=== PATIENT | female | born 1965 | race Caucasian/White ===

== ENCOUNTER 2016-11-10 13:41 | Emergency (ER) | payer SELFPAY ==
--- NOTE | 2016-11-10 14:05 | ER Document Report ---
ED Medical Screen (RME) - General Stated Complaint: VAGINAL ISSUE Notes: 51 yo female c/o something wrong with her vagina x 1 month. something hanging out of vagina. not sexually active. no vaginal discharge or bleeding. menopausal since age 44 TRAVEL OUTSIDE OF THE [place] IN LAST 30 DAYS: No - Related Data Allergies/Adverse Reactions: codeine [Codeine] Allergy (Verified 12/14/14 17:13) Past Medical History - Past Medical History Cardiac Medical History: Reports: Hx Hypertension - pt reports does not take medication regularly Denies: Hx Atrial Fibrillation, Hx Congestive Heart Failure, Hx Coronary Artery Disease, Hx DVT, Hx Pulmonary Embolism Pulmonary Medical History: Reports: Hx Asthma, Hx COPD Neurological Medical History: Denies: Hx Cerebrovascular Accident, Hx Migraine GI Medical History: Denies: Hx Cirrhosis Musculoskeltal Medical History: Reports Hx Arthritis Psychiatric Medical History: Reports: Hx Anxiety, Hx Depression Past Surgical History: Reports: Hx Appendectomy, Hx Orthopedic Surgery - left shoulder - Immunizations Hx Diphtheria, Pertussis, Tetanus Vaccination: No
--- NOTE | 2016-11-10 16:00 | ER Document Report ---
HPI - HPI Patient complains to provider of: vaginal protrusion Onset: Other - One month Onset/Duration: Persistent Quality of pain: Achy Pain Level: 1 Context: Patient complains of feeling something bulging from her vagina periodically after she goes to the bathroom. Patient states she's noticed this off and on for the past month. Patient denies any vaginal bleeding, discharge, or urinary symptoms. Patient states she is not currently sexually active. Patient did go through menopause at age 44. Associated Symptoms: Other - Protrusion from the vagina Exacerbated by: Other - Worse after going to the bathroom Relieved by: Denies Similar symptoms previously: No Recently seen / treated by doctor: No - ROS ROS below otherwise negative: Yes Systems Reviewed and Negative: Yes All other systems reviewed and negative - CONSTITUTIONAL Constitutional: DENIES: Fever, Chills - CARDIOVASCULAR Cardiovascular: DENIES: Chest pain - RESPIRATORY Respiratory: DENIES: Trouble Breathing, Coughing - GASTROINTESTINAL Gastrointestinal: DENIES: Abdominal Pain, Nausea, Patient vomiting - URINARY Urinary: DENIES: Dysuria, Urgency - REPRODUCTIVE Reproductive: DENIES: :, Postmenopausal, Abnormal bleeding / discharge - MUSCULOSKELETAL Musculoskeletal: DENIES: Back Pain - DERM Skin Color: Normal Skin Problems: None - NURSING COMMENTS Comment: see ed assessment. vitals documented elsewhere. Past Medical History - General Information source: Patient Last Menstrual Period: 7 years ago - Social History Smoking Status: Current Every Day Smoker Cigarette use (# per day): Yes - 0.5 ppd Chew tobacco use (# tins/day): No Frequency of alcohol use: None Drug Abuse: None Occupation: none Family History: Reviewed & Not Pertinent Patient has suicidal ideation: No Patient has homicidal ideation: No - Past Medical History Cardiac Medical History: Reports: Hx Hypertension - pt reports does not take medication regularly Denies: Hx Atrial Fibrillation, Hx Congestive Heart Failure, Hx Coronary Artery Disease, Hx DVT, Hx Pulmonary Embolism Pulmonary Medical History: Reports: Hx Asthma, Hx COPD Neurological Medical History: Denies: Hx Cerebrovascular Accident, Hx Migraine GI Medical History: Denies: Hx Cirrhosis Musculoskeltal Medical History: Reports Hx Arthritis Psychiatric Medical History: Reports: Hx Anxiety, Hx Depression Past Surgical History: Reports: Hx Appendectomy, Hx Orthopedic Surgery - left shoulder - Immunizations Hx Diphtheria, Pertussis, Tetanus Vaccination: No Vertical Provider Document - CONSTITUTIONAL Agree With Documented VS: Yes Exam Limitations: No Limitations General Appearance: WD/WN, No Apparent Distress - INFECTION CONTROL TRAVEL OUTSIDE OF THE [place] IN LAST 30 DAYS: No - HEENT HEENT: Atraumatic, Normocephalic - NECK Neck: Normal Inspection, Supple - RESPIRATORY Respiratory: Breath Sounds Normal, No Respiratory Distress O2 Sat by Pulse Oximetry: 98 - CARDIOVASCULAR Cardiovascular: Regular Rate, Regular Rhythm, No Murmur - GI/ABDOMEN Gastrointestinal: Abdomen Soft, Abdomen Non-Tender - REPRODUCTIVE Female Genitalia: negative: Adnexal Pain-Right, Adnexal Pain-Left Notes: 1st degree uterine prolapse - BACK Back: Normal Inspection - MUSCULOSKELETAL/EXTREMETIES Musculoskeletal/Extremeties: GURINDER MONREAL - NEURO Level of Consciousness: Awake, Alert, Appropriate Motor/Sensory: No Motor Deficit Course - Re-evaluation Re-evalutation: 11/10/16 15:58 Patient encouraged to follow-up with her primary care provider for recheck. Patient also advised that she'll need to see a gynecologic surgeon for further management of her uterine prolapse. - Vital Signs Vital signs: Temp Pulse Resp BP Pulse Ox 98.1 F 73 17 122/88 H 98 11/10/16 15:27 11/10/16 15:27 11/10/16 15:27 11/10/16 15:27 11/10/16 15:27 Discharge - Discharge Clinical Impression: Uterine prolapse Condition: Stable Disposition: HOME, SELF-CARE Additional Instructions: Return immediately for any new or worsening symptoms Followup with your primary care provider, call tomorrow to make a followup appointment You will need to see a gynecologic surgeon for definitive management of your uterine prolapse. Call to make a follow-up appointment for further evaluation. Referrals: BERNICE PERALES DO [Primary Care Provider] - Follow up in 3-5 days [facility] [NO LOCAL MD] - Follow up as needed [facility] [Provider Group] - Follow up in 3-5 days
[2016-11-10 16:32] VITALS: BP 144/85
== END 2016-11-10 16:32 | disposition home or self-care (01) ==
LOC: ER 13:41
DX: N81.10 Cystocele, unspecified (principal); F17.210 Nicotine dependence, cigarettes, uncomplicated; J45.909 Unspecified asthma, uncomplicated; J44.9 Chronic obstructive pulmonary disease, unspecified; Z78.0 Asymptomatic menopausal state
CPT/HCPCS: 99283

== ENCOUNTER 2017-07-26 11:18 | Emergency (ER) | payer SELFPAY ==
--- NOTE | 2017-07-26 13:35 | ER Document Report ---
ED GI/ - General Chief Complaint: Abdominal Pain Stated Complaint: BACK PAIN Time Seen by Provider: 07/26/17 13:03 Mode of Arrival: Ambulatory Information source: Patient Notes: Patient is a 51-year-old female who presents to the ER today for multiple complaints including bilateral lower back pain 3-4 days. Patient denies any dysuria or hematuria, history of kidney stones. Patient denies any lower abdominal pain. Patient also complains of right upper abdominal pain, nausea, vomiting and diarrhea 1 month. She denies any fevers or chills with this. Patient also complains of approximately 1 month of respiratory symptoms such as cough, wheezing, patient does have COPD and has been using her inhaler which has sometimes been helping and sometimes not. TRAVEL OUTSIDE OF THE [place] IN LAST 30 DAYS: No - Related Data Allergies/Adverse Reactions: codeine [Codeine] Allergy (Verified 11/10/16 14:06) Past Medical History - General Information source: Patient - Social History Smoking Status: Current Every Day Smoker Frequency of alcohol use: None Drug Abuse: None Family History: Reviewed & Not Pertinent Patient has suicidal ideation: No Patient has homicidal ideation: No - Past Medical History Cardiac Medical History: Reports: Hx Hypertension - pt reports does not take medication regularly Denies: Hx Atrial Fibrillation, Hx Congestive Heart Failure, Hx Coronary Artery Disease, Hx DVT, Hx Pulmonary Embolism Pulmonary Medical History: Reports: Hx Asthma, Hx COPD Neurological Medical History: Denies: Hx Cerebrovascular Accident, Hx Migraine Renal/ Medical History: Denies: Hx Peritoneal Dialysis GI Medical History: Denies: Hx Cirrhosis Musculoskeltal Medical History: Reports Hx Arthritis Psychiatric Medical History: Reports: Hx Anxiety, Hx Depression Past Surgical History: Reports: Hx Appendectomy, Hx Orthopedic Surgery - left shoulder - Immunizations Hx Diphtheria, Pertussis, Tetanus Vaccination: No Review of Systems - Review of Systems Constitutional: No symptoms reported EENT: No symptoms reported Cardiovascular: No symptoms reported Respiratory: See HPI Gastrointestinal: See HPI Genitourinary: No symptoms reported Female Genitourinary: No symptoms reported Musculoskeletal: See HPI Skin: No symptoms reported Hematologic/Lymphatic: No symptoms reported Neurological/Psychological: No symptoms reported Physical Exam - Vital signs Vitals: Temp Pulse BP Pulse Ox 97.9 F 74 148/91 H 100 07/26/17 11:22 07/26/17 11:22 07/26/17 11:22 07/26/17 11:22 - Notes Notes: PHYSICAL EXAMINATION: GENERAL: Chronically ill-appearing, but in no acute distress. HEAD: Atraumatic, normocephalic. EYES: Pupils equal round and reactive to light, extraocular movements intact, sclera anicteric, conjunctiva are normal. NECK: Normal range of motion, supple without lymphadenopathy LUNGS: Mild expiratory wheezes in bilateral lower lung keith, no rales or rhonchi. HEART: Regular rate and rhythm without murmurs ABDOMEN: Soft, epigastric, right upper quadrant tenderness. No guarding, no rebound BACK: no vertebral tenderness, normal ROM GI/: no CVA tenderness EXTREMITIES: Normal range of motion, no pitting edema. No cyanosis. NEUROLOGICAL: Cranial nerves grossly intact. Normal sensory/motor exams. PSYCH: Normal mood, normal affect. SKIN: Warm, Dry, normal turgor, no rashes or lesions noted Course - Re-evaluation Re-evalutation: 07/26/17 17:47 Patient usually has some elevated liver enzymes, today her liver enzymes are elevated and her bilirubin is mildly elevated. Right upper quadrant revealed a normal gallbladder but a possible right lower pleural effusion. Patient will be treated for COPD exacerbation with antibiotics and steroid medication. I do not have an explanation for her abdominal pain and vomiting and diarrhea today. Her urinalysis showed 11 white blood cells and some leukocytes, I will choose an antibiotic but also treat UTI. Patient has a white patch on her tongue that is able to be scraped off, I will also provide her with Magic mouthwash with nystatin and it from this emergency department. - Vital Signs Vital signs: Temp Pulse Resp BP Pulse Ox 98.4 F 70 16 133/76 H 99 07/26/17 16:07 07/26/17 16:07 07/26/17 16:07 07/26/17 16:07 07/26/17 16:07 - Laboratory Result Diagrams: 07/26/17 13:10 07/26/17 13:10 Laboratory results interpreted by me: 07/26/17 07/26/17 07/26/17 13:10 13:10 13:10 WBC 11.4 H Hgb 16.4 H MCV 98 H MCH 35.1 H Absolute Neutrophils 8.6 H Calcium 10.7 H Total Bilirubin 1.7 H Direct Bilirubin 0.5 H AST 74 H ALT 60 H Total Protein 9.0 H Albumin 5.2 H Urine Protein 30 H Urine Ketones 20 H Ur Leukocyte Esterase TRACE H Discharge - Discharge Clinical Impression: COPD exacerbation, Thrush, oral Abdominal pain Qualifiers: Abdominal location: right upper quadrant Qualified Code(s): R10.11 - Right upper quadrant pain Condition: Stable Disposition: HOME, SELF-CARE Additional Instructions: Return immediately for any new or worsening symptoms. Follow up with primary care provider, call tomorrow to make followup appointment. Prescriptions: Amox Tr/Potassium Clavulanate [Augmentin 875-125 Tablet] 1 tab PO BID 10 Days tablet Prednisone 40 mg PO DAILY #14 tablet Referrals: BERNICE PERALES DO [Primary Care Provider] - Follow up as needed
[2017-07-26 13:42] LABS: ABSOLUTE BASOPHILS # (AUTO) 0.1 10^3/uL (0.0-0.2); ABSOLUTE LYMPHOCYTES (AUTO) 2.2 10^3/uL (0.5-4.7); ABSOLUTE MONOCYTES (AUTO) 0.5 10^3/uL (0.1-1.4); ABSOLUTE NEUT (AUTO) 8.6 10^3/uL (1.7-8.2); BASOPHILS % (AUTO) 0.6 % (0-2); EOSINOPHILS % (AUTO) 0.1 % (0-6); HEMATOCRIT 45.8 % (36.0-47.0); HEMOGLOBIN 16.4 g/dL (12.0-15.5); HGB HCT DIFFERENCE 3.4; MEAN CORPUSCULAR HEMOGLOBIN 35.1 pg (27.0-33.4); MEAN CORPUSCULAR HGB CONC 35.8 g/dL (32.0-36.0); MEAN CORPUSCULAR VOLUME 98 fl (80-97); MONOCYTES % (AUTO) 4.8 % (3-13); RED BLOOD COUNT 4.66 10^6/uL (3.72-5.28); RED CELL DISTRIBUTION WIDTH 12.7 % (11.5-14.0); SEGMENTED NEUTROPHILS % (AUTO) 75.5 % (42-78); WHITE BLOOD COUNT 11.4 10^3/uL (4.0-10.5)
[2017-07-26 13:48] LABS: APPEARANCE,URINE SLIGHTLY-CLOUDY; BILIRUBIN,URINE NEGATIVE (NEGATIVE); GLUCOSE, URINE NEGATIVE (NEGATIVE); KETONES,URINE 20 mg/dL (NEGATIVE); LEUKOCYTE ESTERASE,URINE TRACE (NEGATIVE); NITRITE,URINE NEGATIVE (NEGATIVE); PROTEIN,URINE 30 mg/dL (NEGATIVE); URINE SPECIFIC GRAVITY 1.016; UROBILINOGEN,URINE NEGATIVE mg/dL (<2.0)
[2017-07-26 14:11] LABS: ALANINE AMINOTRANSFERASE 60 U/L (9-52); ALBUMIN 5.2 g/dL (3.5-5.0); ALKALINE PHOSPHATASE 114 U/L (38-126); ANION GAP 15 (5-19); ASPARTATE AMINO TRANSFERASE 74 U/L (14-36); BILIRUBIN,DIRECT 0.5 mg/dL (0.0-0.4); BILIRUBIN,TOTAL 1.7 mg/dL (0.2-1.3); BLOOD UREA NITROGEN 10 mg/dL (7-20); CALCIUM 10.7 mg/dL (8.4-10.2); CARBON DIOXIDE 24 mmol/L (22-30); CHLORIDE 102 mmol/L (98-107); CREATININE RESULT 0.85 mg/dL (0.52-1.25); GLUCOSE 104 mg/dL (75-110); LIPASE 128.6 U/L (23-300); POTASSIUM 4.4 mmol/L (3.6-5.0)
--- NOTE | 2017-07-26 14:21 | RADIOLOGY REPORT (SQ) ---
EXAM DESCRIPTION: CHEST PA/LAT COMPLETED DATE/TIME: 07/26/2017 2:03 pm REASON FOR STUDY: copd, cough COMPARISON: 12/14/2014. EXAM PARAMETERS: NUMBER OF VIEWS: two views TECHNIQUE: Digital Frontal and Lateral radiographic views of the chest acquired. RADIATION DOSE: NA LIMITATIONS: none FINDINGS: LUNGS AND PLEURA: No opacities, masses or pneumothorax. No pleural effusion. MEDIASTINUM AND HILAR STRUCTURES: No masses or contour abnormalities. HEART AND VASCULAR STRUCTURES: Heart normal size. No evidence for failure. BONES: No acute findings. HARDWARE: None in the chest. OTHER: No other significant finding. IMPRESSION: NO SIGNIFICANT RADIOGRAPHIC FINDING IN THE CHEST. TECHNICAL DOCUMENTATION: JOB ID: [id number] [employer]- All Rights Reserved
--- NOTE | 2017-07-26 17:29 | RADIOLOGY REPORT (SQ) ---
EXAM DESCRIPTION: U/S ABDOMEN LIMITED W/O DOP COMPLETED DATE/TIME: 07/26/2017 4:56 pm REASON FOR STUDY: elevated lfts and bilirubin, pain, n/v COMPARISON: None. TECHNIQUE: Dynamic and static grayscale images acquired of the abdomen and recorded on PACS. Rejio therese selected color Doppler and spectral images recorded. LIMITATIONS: None. FINDINGS: PANCREAS: Obscured by gas. LIVER: 17.8 cm. Diffusely echogenic. LIVER VASCULATURE: Normal directional flow of the main portal vein and hepatic veins. GALLBLADDER: No stones. Normal wall thickness. No pericholecystic fluid. ULTRASOUND-DETECTED HARRINGTON'S SIGN: Negative. INTRAHEPATIC DUCTS AND COMMON DUCT: CBD and intrahepatic ducts normal caliber. No filling defects. INFERIOR VENA CAVA: Normal flow. AORTA: No aneurysm. RIGHT KIDNEY: Normal size, 9.1 cm. Normal echogenicity. No solid or suspicious masses. No hydronephr osis. No calcifications. PERITONEAL AND RIGHT PLEURAL SPACE: There is a suggestion of a small right pleural effusion. OTHER: No other significant findings. IMPRESSION: 1. Fatty infiltration of the liver. 2. There may be a small right pleural effusion. TECHNICAL DOCUMENTATION: JOB ID: [id number] [employer]- All Rights Reserved
[2017-07-26] MEDS ORDERED: NYSTATIN/DEXAMETH/DIPHEN SUSP 120 ML PO ONE (17:51)
[2017-07-26] MEDS ORDERED: OXYCODONE-ACETAMINOPHEN 5-325 MG TABLET PO ONE (17:57)
[2017-07-26 18:35] VITALS: BP 158/105
== END 2017-07-26 18:36 | disposition home or self-care (01) ==
LOC: ER 11:18
DX: J44.1 Chronic obstructive pulmonary disease with (acute) exacerbation (principal); B37.0 Candidal stomatitis; M54.5 Low back pain; R10.11 Right upper quadrant pain; R19.7 Diarrhea, unspecified; R11.10 Vomiting, unspecified; F17.200 Nicotine dependence, unspecified, uncomplicated; I10 Essential (primary) hypertension; Z88.6 Allergy status to analgesic agent
CPT/HCPCS: 99284; 36415; 83690; 85025; 80053; 81001; 71020; 76705; J3490

== ENCOUNTER 2018-02-27 18:21 | Inpatient (IN) | payer SELFPAY ==
[2018-02-27] MEDS ORDERED: HALOPERIDOL LACTATE INJ 5 MG/1 ML VIAL IV ONE (18:56)
[2018-02-27] MEDS ORDERED: NORMAL SALINE 1000 ML 1,000 ML IV PRN (18:59)
[2018-02-27] MEDS ORDERED: KETOROLAC TROMETHAMINE INJ/PF 30 MG/1 ML SDV IV ONE (19:00)
--- NOTE | 2018-02-27 19:26 | ER Document Report ---
HPI - HPI Pain Level: 5 - REPRODUCTIVE Reproductive: DENIES: : Past Medical History - Social History Smoking Status: Current Every Day Smoker Family History: Reviewed & Not Pertinent - Past Medical History Cardiac Medical History: Reports: Hx Hypertension - pt reports does not take medication regularly Denies: Hx Atrial Fibrillation, Hx Congestive Heart Failure, Hx Coronary Artery Disease, Hx DVT, Hx Pulmonary Embolism Pulmonary Medical History: Reports: Hx Asthma, Hx COPD Neurological Medical History: Denies: Hx Cerebrovascular Accident, Hx Migraine Renal/ Medical History: Denies: Hx Peritoneal Dialysis GI Medical History: Denies: Hx Cirrhosis Musculoskeltal Medical History: Reports Hx Arthritis Psychiatric Medical History: Reports: Hx Anxiety, Hx Depression Past Surgical History: Reports: Hx Appendectomy, Hx Orthopedic Surgery - left shoulder - Immunizations Hx Diphtheria, Pertussis, Tetanus Vaccination: No Vertical Provider Document - CONSTITUTIONAL Agree With Documented VS: Yes - INFECTION CONTROL TRAVEL OUTSIDE OF THE [place] IN LAST 30 DAYS: No Course - Vital Signs Vital signs: Temp Pulse Resp BP Pulse Ox 98.0 F 89 20 122/82 99 02/27/18 18:29 02/27/18 18:29 02/27/18 18:29 02/27/18 18:29 02/27/18 18:29 - Laboratory Result Diagrams: 03/02/18 06:18 03/02/18 06:19 Discharge - Discharge Clinical Impression: Vomiting, Hypokalemia, Prolonged QT interval Condition: Stable Disposition: ADMITTED OBSERVATION
[2018-02-27 19:34] LABS: ABSOLUTE BASOPHILS # (AUTO) 0.1 10^3/uL (0.0-0.2); ABSOLUTE LYMPHOCYTES (AUTO) 1.8 10^3/uL (0.5-4.7); ABSOLUTE MONOCYTES (AUTO) 0.5 10^3/uL (0.1-1.4); ABSOLUTE NEUT (AUTO) 8.9 10^3/uL (1.7-8.2); BASOPHILS % (AUTO) 0.4 % (0-2); HEMATOCRIT 41.7 % (36.0-47.0); HEMOGLOBIN 14.8 g/dL (12.0-15.5); LYMPHOCYTES % (AUTO) 15.8 % (13-45); MEAN CORPUSCULAR HEMOGLOBIN 34.4 pg (27.0-33.4); MEAN CORPUSCULAR HGB CONC 35.5 g/dL (32.0-36.0); MEAN CORPUSCULAR VOLUME 97 fl (80-97); MONOCYTES % (AUTO) 4.8 % (3-13); PLATELET COUNT 441 10^3/uL (150-450); RED BLOOD COUNT 4.31 10^6/uL (3.72-5.28); RED CELL DISTRIBUTION WIDTH 12.8 % (11.5-14.0); TOTAL CELLS COUNTED % (AUTO) 100 %; WHITE BLOOD COUNT 11.3 10^3/uL (4.0-10.5)
[2018-02-27 19:54] LABS: ALANINE AMINOTRANSFERASE 36 U/L (9-52); ALBUMIN 3.9 g/dL (3.5-5.0); ALKALINE PHOSPHATASE 124 U/L (38-126); ANION GAP 15 (5-19); ASPARTATE AMINO TRANSFERASE 39 U/L (14-36); BILIRUBIN,DIRECT 0.4 mg/dL (0.0-0.4); BILIRUBIN,TOTAL 0.8 mg/dL (0.2-1.3); BLOOD UREA NITROGEN 5 mg/dL (7-20); CALCIUM 9.4 mg/dL (8.4-10.2); CARBON DIOXIDE 18 mmol/L (22-30); CHLORIDE 94 mmol/L (98-107); GLUCOSE 102 mg/dL (75-110); LIPASE 50.2 U/L (23-300); TOTAL PROTEIN 7.2 g/dL (6.3-8.2)
[2018-02-27 19:58] LABS: POTASSIUM 2.7 mmol/L (3.6-5.0)
[2018-02-27 20:41] LABS: APPEARANCE,URINE SLIGHTLY-CLOUDY; BILIRUBIN,URINE NEGATIVE (NEGATIVE); COLOR,URINE YELLOW; GLUCOSE, URINE NEGATIVE (NEGATIVE); KETONES,URINE TRACE mg/dL (NEGATIVE); LEUKOCYTE ESTERASE,URINE MODERATE (NEGATIVE); NITRITE,URINE NEGATIVE (NEGATIVE); PROTEIN,URINE 30 mg/dL (NEGATIVE); URINE SPECIFIC GRAVITY 1.019; UROBILINOGEN,URINE NEGATIVE mg/dL (<2.0)
[2018-02-27 20:41] LABS: ALCOHOL < 10 mg/dL (NONE DETECTED)
[2018-02-27] MEDS ORDERED: PANTOPRAZOLE SODIUM 40 MG VIAL IV ONE (20:47)
--- NOTE | 2018-02-27 20:50 | ER Document Report ---
ED General - General Chief Complaint: Low Back Pain Stated Complaint: FLANK PAIN Time Seen by Provider: 02/27/18 18:48 Notes: Patient is a 52-year-old female comes emergency department for chief complaint of vomiting, weakness, and chronic back pain. She states that for the past month she wakes up in the morning and throws up, and then she typically has a couple of episodes of vomiting throughout the day, she vomited 4 times a day which is worse than usual and came for evaluation. She denies any particular area of abdominal pain. She states she tried to drink beer earlier today but vomited that too. She denies any alcohol use. She smokes, has a history of COPD, has had an appendectomy, denies any cardiac history. TRAVEL OUTSIDE OF THE [place] IN LAST 30 DAYS: No - Related Data Allergies/Adverse Reactions: codeine [Codeine] Allergy (Verified 11/10/16 14:06) Past Medical History - General Information source: Patient - Social History Smoking Status: Current Every Day Smoker Chew tobacco use (# tins/day): No Frequency of alcohol use: None Drug Abuse: None Lives with: Family Family History: Reviewed & Not Pertinent Patient has suicidal ideation: No Patient has homicidal ideation: No - Past Medical History Cardiac Medical History: Reports: Hx Hypertension - pt reports does not take medication regularly Denies: Hx Atrial Fibrillation, Hx Congestive Heart Failure, Hx Coronary Artery Disease, Hx DVT, Hx Pulmonary Embolism Pulmonary Medical History: Reports: Hx Asthma, Hx COPD Neurological Medical History: Denies: Hx Cerebrovascular Accident, Hx Migraine Renal/ Medical History: Denies: Hx Peritoneal Dialysis GI Medical History: Denies: Hx Cirrhosis Musculoskeltal Medical History: Reports Hx Arthritis Psychiatric Medical History: Reports: Hx Anxiety, Hx Depression Past Surgical History: Reports: Hx Appendectomy, Hx Orthopedic Surgery - left shoulder - Immunizations Hx Diphtheria, Pertussis, Tetanus Vaccination: No Review of Systems - Review of Systems Constitutional: See HPI EENT: No symptoms reported Cardiovascular: No symptoms reported Respiratory: No symptoms reported Gastrointestinal: See HPI Genitourinary: No symptoms reported Female Genitourinary: No symptoms reported Musculoskeletal: See HPI Skin: No symptoms reported Hematologic/Lymphatic: No symptoms reported Neurological/Psychological: No symptoms reported Physical Exam - Vital signs Vitals: Temp Pulse Resp BP Pulse Ox 98.0 F 89 20 122/82 99 02/27/18 18:29 02/27/18 18:29 02/27/18 18:29 02/27/18 18:29 02/27/18 18:29 Interpretation: Normal - General General appearance: Other - Patient appears slightly uncomfortable but is not in any distress - HEENT Head: Normocephalic, Atraumatic Eyes: Normal Pupils: PERRL - Respiratory Respiratory status: No respiratory distress Chest status: Nontender Breath sounds: Normal. No: Decreased air movement, Wheezing Chest palpation: Normal - Cardiovascular Rhythm: Regular, Extrasystoles. No: Tachycardia Heart sounds: Normal auscultation, S1 appreciated, S2 appreciated Murmur: No - Abdominal Inspection: Normal Distension: No distension Bowel sounds: Normal Tenderness: Tender - Minimal generalized abdominal tenderness, nonspecific, no guarding Organomegaly: No organomegaly - Back Back: Normal, Nontender, Tender - Patient complains of palpation of the general lower back, nonspecific, no saddle anesthesia, full range of motion of all extremities, normal distal neurovascular exam. - Extremities General upper extremity: Normal inspection, Nontender, Normal color, Normal ROM , Normal temperature General lower extremity: Normal inspection, Nontender, Normal color, Normal ROM , Normal temperature, Normal weight bearing. No: Raquel's sign - Neurological Neuro grossly intact: Yes Cognition: Normal Orientation: AAOx4 Chloe Coma Scale Eye Opening: Spontaneous Chloe Coma Scale Verbal: Oriented Kayenta Coma Scale Motor: Obeys Commands Kayenta Coma Scale Total: 15 Speech: Normal Motor strength normal: LUE, RUE, LLE, RLE Sensory: Normal - Psychological Associated symptoms: Normal affect, Normal mood - Skin Skin Temperature: Warm Skin Moisture: Dry Skin Color: Kelby Course - Re-evaluation Re-evalutation: Patient appears mildly uncomfortable, abdomen is benign with only very minimal generalized tenderness, no guarding or rigidity. Suspect she has gastritis based on her episodes of vomiting after she gets up in the morning, smoking, alcohol use, and symptoms ongoing for about a month. On the monitor I noted occasional PVCs but she is not tachycardic, she is not hypotensive, she does not have a fever. EKG performed, shows QT prolongation with QTC of 570. Potassium is 2.7, will check magnesium. Troponin is not elevated. Before I evaluated the patient patient was given IV Haldol reportedly for persistent vomiting. Giving magnesium, potassium. Given Protonix. Patient was discussed with Dr. Hernandez. We do not have potassium chloride IV at the moment, recommended p.o. dose and potassium phosphate dose. Will discuss with hospitalist for potential admission due to vomiting, hypokalemia, and QT prolongation. Discussed with Dr. Valente, patient will be admitted to telemetry observation. Patient states understanding and agreement with this plan. - Vital Signs Vital signs: Temp Pulse Resp BP Pulse Ox 97.9 F 67 20 110/64 100 02/28/18 03:16 02/28/18 03:16 02/28/18 03:16 02/28/18 03:16 02/28/18 03:16 - Laboratory Result Diagrams: 02/27/18 19:17 02/27/18 19:17 Laboratory results interpreted by me: 02/27/18 02/27/18 02/27/18 19:17 19:17 19:46 WBC 11.3 H MCH 34.4 H Seg Neutrophils % 79.0 H Absolute Neutrophils 8.9 H Sodium 127.0 L Potassium 2.7 L* Chloride 94 L Carbon Dioxide 18 L BUN 5 L AST 39 H Urine Protein 30 H Urine Ketones TRACE H Ur Leukocyte Esterase MODERATE H Discharge - Discharge Clinical Impression: Hypokalemia, Prolonged QT interval Vomiting Qualifiers: Vomiting type: unspecified Vomiting Intractability: non-intractable Nausea presence: with nausea Qualified Code(s): R11.2 - Nausea with vomiting, unspecified Condition: Stable Disposition: ADMITTED OBSERVATION Admitting Provider: Hospitalist Unit Admitted: Telemetry
[2018-02-27] MEDS ORDERED: POTASSIUM CHLORIDE 10 MEQ TABLET.SA PO ONE (20:51)
[2018-02-27] MEDS: MAGNESIUM SULFATE/D5W 1 GM/100 ML RTUPB IV SCH ×2 (21:40→23:05)
[2018-02-27] MEDS ORDERED: POTASSIUM PHOS,M-BASIC-D-BASIC 15 MMOL in NORMAL SALINE 250 ML IV ONE (21:45)
[2018-02-27] MEDS ORDERED: MAGNESIUM HYDROXIDE SUSP 30 ML UDCUP PO PRN (21:50)
[2018-02-27] MEDS ORDERED: ACETAMINOPHEN 325 MG TABLET PO PRN (21:50)
[2018-02-27 22:00] LABS: URINE AMPHETAMINES SCREEN NEGATIVE; URINE BARBITURATES SCREEN NEGATIVE; URINE BENZODIAZEPINES SCREEN NEGATIVE; URINE COCAINE SCREEN NEGATIVE; URINE MARIJUANA (THC) SCREEN NEGATIVE; URINE METHADONE SCREEN NEGATIVE; URINE PHENCYCLIDINE SCREEN NEGATIVE
[2018-02-27] MEDS ORDERED: CLONAZEPAM 1 MG TABLET PO SCH (22:00)
[2018-02-27] MEDS ORDERED: POTASSI CL 20 MEQ/50 ML RIDER 20 MEQ/50 ML RTUPB IV SCH (22:00)
--- NOTE | 2018-02-27 22:28 | EKG REPORT ---
SEVERITY:- ABNORMAL ECG - SINUS RHYTHM PROLONGED QT INTERVAL : Confirmed by: Harman Jimenez 27-Feb-2018 22:27:49
[2018-02-27] MEDS: HEPARIN SOD (PORCINE) 5,000 UNIT/ML 1 ML SYRINGE SUBCUT SCH (23:06)
[2018-02-28] MEDS: POTASSI CL 20 MEQ/1/2NS 1L 20 MEQ/1,000 ML RTUINJ IV PRN ×4 (00:57→22:39)
[2018-02-28] MEDS: POTASSIUM CHLORIDE 10 MEQ TABLET.SA PO SCH ×3 (01:21→13:17)
[2018-02-28] MEDS: MAGNESIUM SULFATE/D5W 1 GM/100 ML RTUPB IV SCH ×2 (01:27→01:34)
[2018-02-28] MEDS: POTASSI CL 20 MEQ/50 ML RIDER 20 MEQ/50 ML RTUPB IV SCH ×2 (01:27→01:34)
[2018-02-28] MEDS: CLONAZEPAM 1 MG TABLET PO SCH ×3 (05:51→21:22)
[2018-02-28] MEDS: HEPARIN SOD (PORCINE) 5,000 UNIT/ML 1 ML SYRINGE SUBCUT SCH ×3 (05:51→21:23)
--- NOTE | 2018-02-28 06:02 | PDOC H&P ---
History of Present Illness Admission Date/PCP: 02/27/18 21:47 BERNICE PERALES DO Patient complains of: Nausea and vomiting History of Present Illness: ALTAF GRAY is a 52 year old female with a past medical history of chronic low back pain, COPD, tobacco dependence unclear benzodiazepine and opiate dependence. Patient presents with complaint of 1 month of nausea with vomiting 4 times a day and diffuse abdominal pain. In the emergency room she received Zofran without further emesis and is found to have hypokalemia and hyponatremia. She is started on saline, IV Protonix and potassium phosphate. Patient denies new medication but provides a handwritten note of her medications including Lorazepam and Dilaudid requesting they are resumed. Patient denies running out of opiates but is unable to provide prescription bottles and denies history of recreational use. Urine drug screen pending, no tachycardia, hypertension, yawning, tearing or diarrhea. Past Medical History Cardiac Medical History: Reports: Hypertension - pt reports does not take medication regularly Denies: Atrial Fibrillation, Congestive Heart Failure, Coronary Artery Disease, DVT, Pulmonary Embolism Pulmonary Medical History: Reports: Asthma, Chronic Obstructive Pulmonary Disease (COPD) Neurological Medical History: Denies: Migraine GI Medical History: Denies: Cirrhosis Musculoskeltal Medical History: Reports: Arthritis Psychiatric Medical History: Reports: Depression, Tobacco Dependency Past Surgical History Past Surgical History: Reports: Appendectomy, Orthopedic Surgery - left shoulder Social History Information Source: Patient Lives with: Family Smoking Status: Current Every Day Smoker Cigarettes Packs Per Day: 1 Frequency of Alcohol Use: Occasional Hx Recreational Drug Use: No Hx Prescription Drug Abuse: No - Advance Directive Resuscitation Status: Full Code Family History Family History: COPD, Hypertension Parental Family History Reviewed: Yes Children Family History Reviewed: Yes Sibling(s) Family History Reviewed.: Yes Medication/Allergy Home Medications: Clonazepam [Klonopin 1 mg Tablet] 1 mg PO BID 06/14/14 Hydrocodone/Acetaminophen [Hydrocodon-Acetaminophen 5-325] 1 each PO Q6H PRN 11/17 Lisinopril [Prinivil 30 mg Tablet] 40 mg PO DAILY 02/28/18 Temazepam [Temazepam] 30 mg PO QHS PRN 02/28/18 Allergies/Adverse Reactions: codeine [Codeine] Allergy (Verified 11/10/16 14:06) Review of Systems Constitutional: PRESENT: as per HPI, anorexia, fatigue, weakness, weight loss. ABSENT: fever(s), headache(s), night sweats Eyes: ABSENT: visual disturbances Ears: ABSENT: hearing changes Cardiovascular: ABSENT: chest pain, dyspnea on exertion, edema, orthropnea, palpitations Respiratory: ABSENT: cough, hemoptysis Gastrointestinal: PRESENT: as per HPI, abdominal pain, constipation, nausea, vomiting. ABSENT: coffee ground emesis, diarrhea, hematemesis, hematochezia Genitourinary: ABSENT: dysuria, hematuria Musculoskeletal: PRESENT: back pain Integumentary: ABSENT: rash, wounds Neurological: ABSENT: abnormal gait, abnormal speech, confusion, dizziness, focal weakness, syncope Psychiatric: ABSENT: anxiety, depression, homidical ideation, suicidal ideation Endocrine: ABSENT: cold intolerance, heat intolerance, polydipsia, polyuria Hematologic/Lymphatic: ABSENT: easy bleeding, easy bruising Physical Exam Vital Signs: Temp Pulse Resp BP Pulse Ox 97.9 F 67 20 110/64 100 02/28/18 03:16 02/28/18 03:16 02/28/18 03:16 02/28/18 03:16 02/28/18 03:16 Intake & Output 02/26/18 02/27/18 02/28/18 11:59 11:59 11:59 Intake Total 900 Balance 900 Weight 65.4 kg General appearance: PRESENT: cooperative, disheveled, mild distress, well- developed, well-nourished Head exam: PRESENT: atraumatic, normocephalic Eye exam: PRESENT: conjunctiva pink, EOMI, PERRLA. ABSENT: scleral icterus Ear exam: PRESENT: normal external ear exam Mouth exam: PRESENT: moist, tongue midline Neck exam: ABSENT: carotid bruit, JVD, lymphadenopathy, thyromegaly Respiratory exam: PRESENT: crackles, prolonged expiratory phas. ABSENT: accessory muscle use, chest wall tenderness, rales, rhonchi, wheezes Cardiovascular exam: PRESENT: RRR. ABSENT: diastolic murmur, rubs, systolic murmur Pulses: PRESENT: normal dorsalis pedis pul Vascular exam: PRESENT: normal capillary refill GI/Abdominal exam: PRESENT: normal bowel sounds, soft, tenderness. ABSENT: distended, guarding, mass, organolmegaly, rebound Rectal exam: PRESENT: deferred Extremities exam: PRESENT: full ROM. ABSENT: calf tenderness, clubbing, pedal edema Neurological exam: PRESENT: alert, awake, oriented to person, oriented to place , oriented to time, oriented to situation, CN II-XII grossly intact. ABSENT: motor sensory deficit Psychiatric exam: PRESENT: anxious, normal mood. ABSENT: homicidal ideation, suicidal ideation Skin exam: PRESENT: dry, intact, warm. ABSENT: cyanosis, rash Assessment & Plan - Diagnosis (1) Nausea & vomiting Is this a current diagnosis for this admission?: Yes Plan: Unclear cause, gastroenteritis versus pancreatitis versus opiate withdrawal. Follow-up 2 view abdomen, lipase and urine drug screen. IV fluid challenge, symptomatic management (2) Hypokalemia Is this a current diagnosis for this admission?: Yes Plan: Likely secondary to nausea vomiting. Evaluate magnesium and replete potassium follow-up chemistry (3) Prolonged QT interval Is this a current diagnosis for this admission?: Yes Plan: Patient's EKG notable for prolonged QT interval, IV magnesium ordered. Follow- up EKG avoid QT prolonging agents. - Time Time Spent: 50 to 70 Minutes - Inpatient Certification Medical Necessity: Need Close Monitoring Due to Risk of Patient Decompensation
[2018-02-28 06:17] LABS: ABSOLUTE EOSINOPHILS # (AUTO) 0.1 10^3/uL (0.0-0.6); ABSOLUTE LYMPHOCYTES (AUTO) 2.4 10^3/uL (0.5-4.7); ABSOLUTE MONOCYTES (AUTO) 0.5 10^3/uL (0.1-1.4); BASOPHILS % (AUTO) 0.7 % (0-2); EOSINOPHILS % (AUTO) 0.9 % (0-6); HEMOGLOBIN 13.2 g/dL (12.0-15.5); LYMPHOCYTES % (AUTO) 40.2 % (13-45); MEAN CORPUSCULAR HEMOGLOBIN 34.6 pg (27.0-33.4); MEAN CORPUSCULAR HGB CONC 35.5 g/dL (32.0-36.0); MEAN CORPUSCULAR VOLUME 98 fl (80-97); MONOCYTES % (AUTO) 8.3 % (3-13); PLATELET COUNT 337 10^3/uL (150-450); SEGMENTED NEUTROPHILS % (AUTO) 49.9 % (42-78); TOTAL CELLS COUNTED % (AUTO) 100 %
[2018-02-28 06:41] LABS: ANION GAP 8 (5-19); BLOOD UREA NITROGEN 5 mg/dL (7-20); CALCIUM 8.5 mg/dL (8.4-10.2); CARBON DIOXIDE 19 mmol/L (22-30); CHLORIDE 105 mmol/L (98-107); GLUCOSE 96 mg/dL (75-110); SODIUM 131.5 mmol/L (137-145)
[2018-02-28 06:47] LABS: POTASSIUM 3.9 mmol/L (3.6-5.0)
--- NOTE | 2018-02-28 08:13 | RADIOLOGY REPORT (SQ) ---
EXAM DESCRIPTION: ABDOMEN 2 VIEWS COMPLETED DATE/TIME: 02/28/2018 7:31 am REASON FOR STUDY: nausea vomiting Dr. Valente COMPARISON: Abdominal ultrasound 07/26/2017 CT chest 06/19/2014 NUMBER OF VIEWS: Two views. TECHNIQUE: Supine and upright radiographic images of the abdomen acquired. LIMITATIONS: None. FINDINGS: FREE AIR: None. No abnormal gas collections. LUNG BASES: Clear. BOWEL GAS PATTERN: Nonobstructive pattern. No dilated loops or air fluid levels. CALCIFICATIONS: No suspicious calcifications. SOFT TISSUES: Liver mildly prominent. Spleen, kidneys normal size. HARDWARE: None in the abdomen. BONES: No acute fracture. No worrisome bone lesions. OTHER: No other significant finding. IMPRESSION: Nonobstructive bowel gas pattern TECHNICAL DOCUMENTATION: JOB ID: [id number] [employer]- All Rights Reserved Reading location - IP/workstation name: [facility]
--- NOTE | 2018-02-28 12:38 | PDOC PROGRESS REPORT ---
Subjective Progress Note for:: 02/28/18 Subjective:: Still feeling poorly. Reports having green diarrhea. Not liquid, just very loose. States she is had nausea vomiting and diarrhea for the past month. No focal complaints Reason For Visit: HYPOKALEMIA LONG QT, OPIATE WITHDRAW Physical Exam Vital Signs: Temp Pulse Resp BP Pulse Ox 98.2 F 83 18 105/58 L 100 02/28/18 11:05 02/28/18 11:05 02/28/18 11:05 02/28/18 11:05 02/28/18 11:05 Intake & Output 02/27/18 02/28/18 03/01/18 06:59 06:59 06:59 Intake Total 900 Balance 900 Weight 144 lb 2.917 oz General appearance: PRESENT: no acute distress, disheveled Neck exam: ABSENT: JVD Respiratory exam: PRESENT: clear to auscultation vivian Cardiovascular exam: PRESENT: RRR GI/Abdominal exam: PRESENT: normal bowel sounds, soft, tenderness - Mild diffuse Extremities exam: ABSENT: other - No edema Neurological exam: PRESENT: awake Psychiatric exam: PRESENT: unusual affect Focused psych exam: PRESENT: restlessness Skin exam: PRESENT: warm Results Laboratory Results: 02/28/18 05:59 02/28/18 05:59 02/28/18 02/28/18 05:59 05:59 WBC 6.0 RBC 3.80 Hgb 13.2 Hct 37.0 MCV 98 H MCH 34.6 H MCHC 35.5 RDW 13.0 Plt Count 337 Seg Neutrophils % 49.9 Lymphocytes % 40.2 Monocytes % 8.3 Eosinophils % 0.9 Basophils % 0.7 Absolute Neutrophils 3.0 Absolute Lymphocytes 2.4 Absolute Monocytes 0.5 Absolute Eosinophils 0.1 Absolute Basophils 0.0 Sodium 131.5 L Potassium 3.9 D Chloride 105 Carbon Dioxide 19 L Anion Gap 8 BUN 5 L Creatinine 0.57 Est GFR ( Amer) > 60 Est GFR (Non-Af Amer) > 60 Glucose 96 Calcium 8.5 Impressions: Abdomen X-Ray 02/28/18 00:00 IMPRESSION: Nonobstructive bowel gas pattern Assessment & Plan - Diagnosis (1) Hypokalemia Is this a current diagnosis for this admission?: Yes Plan: Replaced. Continue to monitor (2) Nausea & vomiting Is this a current diagnosis for this admission?: Yes Plan: Patient has a history going back several years polysubstance abuse including alcohol and opiates with multiple presentations to the ER with withdrawal symptoms. My suspicion is that is what is going on.
[2018-02-28] MEDS ORDERED: NICOTINE 14 MG/24 HR PATCH.TD24 TD ONE (21:30)
[2018-03-01] MEDS: CLONAZEPAM 1 MG TABLET PO SCH ×3 (05:20→21:07)
[2018-03-01] MEDS: POTASSI CL 20 MEQ/1/2NS 1L 20 MEQ/1,000 ML RTUINJ IV PRN (05:20)
[2018-03-01] MEDS: HEPARIN SOD (PORCINE) 5,000 UNIT/ML 1 ML SYRINGE SUBCUT SCH ×3 (05:24→21:07)
[2018-03-01 06:20] LABS: ANION GAP 8 (5-19); BLOOD UREA NITROGEN 7 mg/dL (7-20); CARBON DIOXIDE 21 mmol/L (22-30); CHLORIDE 108 mmol/L (98-107); GLUCOSE 93 mg/dL (75-110); POTASSIUM 4.8 mmol/L (3.6-5.0); SODIUM 136.9 mmol/L (137-145)
[2018-03-01] MEDS: THIAMINE HCL 100 MG TABLET PO SCH (09:22)
[2018-03-01] MEDS: FOLIC ACID 1 MG TABLET PO SCH (09:22)
[2018-03-01] MEDS: MULTIVITAMIN TABLET PO SCH (09:22)
[2018-03-01] MEDS ORDERED: NICOTINE 14 MG/24 HR PATCH.TD24 TD SCH (10:00)
[2018-03-01] MEDS ORDERED: LORAZEPAM INJ 2 MG/1 ML VIAL IV PRN (11:30)
[2018-03-01] MEDS ORDERED: DEXTROSE 5%-1/2 NORMAL SALINE 1,000 ML IV PRN (11:31)
[2018-03-01] MEDS ORDERED: ONDANSETRON HCL INJ/PF 4 MG/2 ML SDV IV PRN (11:33)
[2018-03-01] MEDS ORDERED: NICOTINE 21 MG/24 HR PATCH.TD24 TD ONE (13:00)
[2018-03-01] MEDS ORDERED: LOPERAMIDE HCL 2 MG CAPSULE PO PRN (14:47)
--- NOTE | 2018-03-01 14:47 | PDOC PROGRESS REPORT ---
Subjective Progress Note for:: 03/01/18 Subjective:: Staff reports that she has been very anxious and fidgety. She has been smoking in her room. When I was in there she was sound asleep and slept right through the exam. She only appears to have taken a couple bites of breakfast. Reason For Visit: HYPOKALEMIA LONG QT, OPIATE WITHDRAW Physical Exam Vital Signs: Temp Pulse Resp BP Pulse Ox 98.0 F 78 16 145/92 H 100 03/01/18 12:07 03/01/18 12:07 03/01/18 12:07 03/01/18 12:07 03/01/18 12:07 Intake & Output 02/28/18 03/01/18 03/02/18 06:59 06:59 06:59 Intake Total 900 4387 Balance 900 4387 Weight 144 lb 2.917 oz 148 lb 2.41 oz General appearance: PRESENT: no acute distress, disheveled, other - Chronically ill-appearing Respiratory exam: PRESENT: clear to auscultation vivian Cardiovascular exam: PRESENT: RRR GI/Abdominal exam: PRESENT: soft Extremities exam: ABSENT: other - No edema Musculoskeletal exam: PRESENT: normal inspection Neurological exam: PRESENT: other - Very somnolent Skin exam: PRESENT: warm Results Laboratory Results: 02/28/18 05:59 03/01/18 05:40 03/01/18 05:40 Sodium 136.9 L Potassium 4.8 Chloride 108 H Carbon Dioxide 21 L Anion Gap 8 BUN 7 Creatinine 0.59 Est GFR ( Amer) > 60 Est GFR (Non-Af Amer) > 60 Glucose 93 Calcium 9.0 Impressions: Abdomen X-Ray 02/28/18 00:00 IMPRESSION: Nonobstructive bowel gas pattern Assessment & Plan - Diagnosis (1) Hypokalemia Is this a current diagnosis for this admission?: Yes Plan: Replaced. Continue to monitor (2) Nausea & vomiting Is this a current diagnosis for this admission?: Yes Plan: Patient has a history going back several years polysubstance abuse including alcohol and opiates with multiple presentations to the ER with withdrawal symptoms. My suspicion is that is what is going on. No reports of vomiting since admission. Very little appetite, though she has occasionally eaten about half of her food. She has continued to have diarrhea. I will treat that with Imodium as C. difficile was negative. Stool cultures are pending. No indication for antibiotics at this time.
[2018-03-01] MEDS: DEXTROSE 5%-NORMAL SALINE 1,000 ML IV PRN (15:49)
[2018-03-01 20:49] LABS: APPEARANCE,URINE CLEAR; BILIRUBIN,URINE NEGATIVE (NEGATIVE); COLOR,URINE STRAW; GLUCOSE, URINE NEGATIVE (NEGATIVE); KETONES,URINE NEGATIVE (NEGATIVE); LEUKOCYTE ESTERASE,URINE NEGATIVE (NEGATIVE); NITRITE,URINE NEGATIVE (NEGATIVE); PROTEIN,URINE NEGATIVE (NEGATIVE); URINE SPECIFIC GRAVITY 1.005; UROBILINOGEN,URINE NEGATIVE mg/dL (<2.0)
[2018-03-02] MEDS: CLONAZEPAM 1 MG TABLET PO SCH ×2 (05:08→13:39)
[2018-03-02] MEDS: HEPARIN SOD (PORCINE) 5,000 UNIT/ML 1 ML SYRINGE SUBCUT SCH ×2 (05:09→13:39)
[2018-03-02 07:21] LABS: HEMATOCRIT 37.3 % (36.0-47.0); HEMOGLOBIN 12.8 g/dL (12.0-15.5); MEAN CORPUSCULAR HEMOGLOBIN 34.3 pg (27.0-33.4); MEAN CORPUSCULAR HGB CONC 34.4 g/dL (32.0-36.0); MEAN CORPUSCULAR VOLUME 100 fl (80-97); PLATELET COUNT 311 10^3/uL (150-450); RED BLOOD COUNT 3.75 10^6/uL (3.72-5.28); RED CELL DISTRIBUTION WIDTH 13.1 % (11.5-14.0); WHITE BLOOD COUNT 6.2 10^3/uL (4.0-10.5)
[2018-03-02 07:49] LABS: ALANINE AMINOTRANSFERASE 32 U/L (9-52); ALBUMIN 3.2 g/dL (3.5-5.0); ALKALINE PHOSPHATASE 83 U/L (38-126); ANION GAP 9 (5-19); ASPARTATE AMINO TRANSFERASE 37 U/L (14-36); BILIRUBIN,DIRECT 0.2 mg/dL (0.0-0.4); BILIRUBIN,TOTAL 0.3 mg/dL (0.2-1.3); BLOOD UREA NITROGEN 5 mg/dL (7-20); CALCIUM 9.2 mg/dL (8.4-10.2); CARBON DIOXIDE 26 mmol/L (22-30); CHLORIDE 103 mmol/L (98-107); GLUCOSE 100 mg/dL (75-110); IRON 69.7 ug/dL (37-170); PHOSPHORUS 4.4 mg/dL (2.5-4.5); POTASSIUM 4.4 mmol/L (3.6-5.0); SODIUM 137.5 mmol/L (137-145); TOTAL PROTEIN 5.9 g/dL (6.3-8.2)
[2018-03-02] MEDS ORDERED: NICOTINE 21 MG/24 HR PATCH.TD24 TD SCH (10:00)
[2018-03-02] MEDS: FOLIC ACID 1 MG TABLET PO SCH (10:14)
[2018-03-02] MEDS: THIAMINE HCL 100 MG TABLET PO SCH (10:14)
[2018-03-02] MEDS: MULTIVITAMIN TABLET PO SCH (10:14)
[2018-03-02] MEDS: DEXTROSE 5%-NORMAL SALINE 1,000 ML IV PRN (13:39)
[2018-03-02 15:47] VITALS: BP 102/56
--- NOTE | 2018-03-02 15:47 | ER Document Report ---
ED Medical Screen (RME) - General Chief Complaint: Low Back Pain Stated Complaint: FLANK PAIN Time Seen by Provider: 02/27/18 18:48 TRAVEL OUTSIDE OF THE [place] IN LAST 30 DAYS: No - HPI Notes: 02/27/18 2100 Patient is a 52-year-old female with a history of chronic low back pain, hypertension who presents to the ED complaining of continued lower back pain, intermittent nausea and vomiting 1 month. Patient states that she has had symptoms similar to this this past fall. Patient states that she has not been taking any medicines for her nausea. Patient states that she primarily has a vomiting episode in the morning and then occasionally after she eats. Patient states that she has not had any abdominal pain. She has been eating and drinking without difficulties. She is urinating normally and having normal bowel movements. Patient has not been seen by her primary care doctor during this illness over the last month. She has not had any injections or procedures to her lower back. Patient states that her low back pain is the same as it has always been without any acute changes. Patient is able to ambulate without any difficulties. Denies any headache, fever, neck pain, URI, sore throat, chest pain, palpitations, syncope, cough, shortness of breath, wheeze, dyspnea, abdominal pain, diarrhea, urinary retention, dysuria, hematuria, loss of control of bowel or bladder, numbness/tingling, saddle anesthesia, muscle paralysis/weakness, or rash. I have treated and performed a rapid initial assessment of this patient. A comprehensive ED assessment and evaluation of the patient, analysis of test results and completion of medical decision making process will be conducted by additional ED providers. Reviewed case with Albert MUJICA who will take over care. - Related Data Allergies/Adverse Reactions: codeine [Codeine] Allergy (Verified 11/10/16 14:06) Past Medical History - Social History Chew tobacco use (# tins/day): No Frequency of alcohol use: None Drug Abuse: None - Past Medical History Cardiac Medical History: Reports: Hx Hypertension - pt reports does not take medication regularly Denies: Hx Atrial Fibrillation, Hx Congestive Heart Failure, Hx Coronary Artery Disease, Hx DVT, Hx Pulmonary Embolism Pulmonary Medical History: Reports: Hx Asthma, Hx COPD Neurological Medical History: Denies: Hx Cerebrovascular Accident, Hx Migraine Renal/ Medical History: Denies: Hx Peritoneal Dialysis GI Medical History: Denies: Hx Cirrhosis Musculoskeltal Medical History: Reports Hx Arthritis Psychiatric Medical History: Reports: Hx Anxiety, Hx Depression Past Surgical History: Reports: Hx Appendectomy, Hx Orthopedic Surgery - left shoulder - Immunizations Hx Diphtheria, Pertussis, Tetanus Vaccination: No History of Influenza Vaccine for 07/2017 - 12/2017 Season: No Physical Exam - Vital signs Vitals: Temp Pulse Resp BP Pulse Ox 98.0 F 89 20 122/82 99 02/27/18 18:29 02/27/18 18:29 02/27/18 18:29 02/27/18 18:29 02/27/18 18:29 - Respiratory Breath sounds: Normal - Cardiovascular Rhythm: Regular Heart sounds: Normal auscultation Course - Vital Signs Vital signs: Temp Pulse Resp BP Pulse Ox 97.8 F 80 18 122/77 100 03/02/18 11:13 03/02/18 11:13 03/02/18 11:13 03/02/18 11:13 03/02/18 11:13 - Laboratory Result Diagrams: 03/02/18 06:18 03/02/18 06:19 Laboratory results interpreted by me: 02/27/18 02/27/18 02/27/18 19:17 19:17 19:46 WBC 11.3 H MCH 34.4 H Seg Neutrophils % 79.0 H Absolute Neutrophils 8.9 H Sodium 127.0 L Potassium 2.7 L* Chloride 94 L Carbon Dioxide 18 L BUN 5 L AST 39 H Urine Protein 30 H Urine Ketones TRACE H Ur Leukocyte Esterase MODERATE H Doctor's Discharge - Discharge Clinical Impression: Hypokalemia, Prolonged QT interval Vomiting Qualifiers: Vomiting type: unspecified Vomiting Intractability: non-intractable Nausea presence: with nausea Qualified Code(s): R11.2 - Nausea with vomiting, unspecified Condition: Stable Disposition: ADMITTED OBSERVATION
--- NOTE | 2018-03-04 09:39 | DISCHARGE SUMMARY E ---
Discharge Summary NAME: ALTAF GRAY : 1965 AGE: 52Y ADMITTED: 02/27/2018 DISCHARGED: 03/02/2018 CODE STATUS: FULL CODE. PRIMARY CARE PROVIDER: Chan Merchant DISCHARGE DIAGNOSES: Includes: 1. High suspicion of opiate withdrawal. 2. Nausea and vomiting secondary to number 1. 3. Hypokalemia secondary to number 2. 4. Metabolic acidosis secondary to the above. 5. History of polysubstance abuse with negative toxicology findings. 6. Tobacco dependency, continuous. 7. Benzodiazepine dependency, continuous. 8. Questionable opiate dependency, continuous. DISCHARGE MEDICATIONS: Include: 1. Thiamine 100 mg p.o. daily. 2. Folic acid 1 mg p.o. daily. 3. Restoril 30 mg p.o. q. hour of sleep p.r.n. 4. Multivitamin 1 tablet p.o. daily. 5. Lisinopril 40 mg p.o. daily. 6. Hydrocodone/acetaminophen 5/325 one tablet p.o. q. 6 hours p.r.n. 7. Klonopin 1 mg p.o. q. 12 hours. DIET: As tolerated. ACTIVITY: As tolerated. CONDITION: Good. DIAGNOSTICS: Lab values obtained on 03/02/2018: WBCs are 6.2, hemoglobin is 12.8, hematocrit is 37.3, platelet count is 311,000. Chemistry obtained on 03/02/2018: Sodium is 137, potassium 4.4, chloride is 103, carbon dioxide 26, BUN 5, creatinine is 0.61, glucose 100, calcium is 9.2, phosphorus 4.4, magnesium is 1.8. Iron is 0.3, total bilirubin is 0.2. AST 37, ALT is 32, Alk phos 83, troponin is 0.012, total protein 5.9, albumin 3.2, lipase is 50.2, B12 is 371, folate is 12.9. Urinalysis obtained on 03/01/2018: Color straw, appearance clear. PH is 6.0, specific gravity is 1.005. Protein negative, glucose negative, ketones negative, occult blood negative, nitrate negative, bilirubin negative, urobilinogen negative, leukocyte esterase is negative. WBC 0, epithelial squamous cells less than 1, mucus rare, ascorbic acid is negative. Toxicology obtained on 02/27/2018 is soto negative. Serology obtained on 02/28/2018: C. difficile toxin is negative. Urine culture obtained on 02/27/2018 reveals mixed minda. Stool culture obtained on 02/28/2018 reveals no growth. Abdominal x-ray obtained on 02/28/2018 reveals nonobstructive bowel gas pattern. EKG obtained on 02/27/2018 reveals sinus rhythm. PHYSICAL EXAMINATION: GENERAL: On examination, the patient is a well-developed, well-nourished 52-year-old female who is awake, alert, and oriented to person, place, time, and situation. She is verbal, conversational, does not appear to be in any acute distress. VITAL SIGNS: Temperature is 97.8, pulse 80, respirations 18, blood pressure is 122/77, oxygen saturation is 100% on room air. SKIN: Warm and dry. No rash. s he is not diaphoretic. HEENT: Pupils equal, round, and reactive to light and accommodation. Conjunctiva is pink. There is no evidence of JVP. CARDIOVASCULAR SYSTEM: Heart is regular. There is no murmur or rub. CHEST: Clear, symmetrical, unlabored. ABDOMEN: Soft, nontender, nondistended. BACK: No CVA tenderness or sacral edema. EXTREMITIES: No clubbing, cyanosis, or edema. PSYCHIATRIC: Appropriate affect, pleasant mood. HISTORY OF PRESENT ILLNESS: The patient is a 52-year-old female with a past medical history of chronic back pain as well as COPD and tobacco dependency. The patient presented to the emergency department with a complaint of nausea and vomiting x4 days as well as diffuse abdominal pain. While in the emergency department, the patient refused Zofran without further emesis and was found to have hypokalemia and hyponatremia. The patient was started on saline, IV Protonix, and potassium phosphate. The patient denied any new medication, but provides a handwritten note of her medications, which include lorazepam and oral Dilaudid, which she requested to be resumed. The patient denies running out of opiates, but is unable to provide prescription bottles and denies any history of recreational use. The patient's urine drug screen is pending. No tachycardia, hypertension. At the time of admission, the patient did not have any tachycardia, hypertension, yawning, or tearing. HOSPITAL COURSE: The patient was admitted to [facility]. The patient was hydrated and electrolytes were repleted. In spite of the patient continuing to provide handwritten documentation on being on oral Dilaudid as well as benzodiazepines, the patient's tox screen was negative, further suggesting opiate withdrawal. The patient had improvement in her symptoms, and the day of discharge, the patient stated that she had complete symptom resolution. The patient's electrolytes had normalized. Her EKG strip appeared to be normal. The patient denied any nausea, vomiting, diarrhea, shortness of breath, dizziness, chest pain. No fevers or chills. The patient is ready for discharge. DISCHARGE PLANNING: The patient is advised to follow up with her primary care provider within 1 week for hospital followup. Time spent on this discharge including assessment, plan, physical examination, patient education, and review of records is 25 minutes. DICTATING PHYSICIAN: RAFAELA ABDALLA NP [id number] PHY#: [id number] ID: [id number] JOB#: [id number] ACCT: [id number] cc:ALFONSO AUSTIN M.D. RAFAELA ABDALLA NP > MTDD
== END 2018-03-02 16:02 | disposition home health service (06) | DRG 897 ==
LOC: ER 18:21 → EH 21:47 → OBSVTOIN 21:47 → 3S 23:56
PROVIDERS: ADMIT Internal Medicine; ATTEND Internal Medicine
DX: F11.23 Opioid dependence with withdrawal (principal); E87.2 Acidosis; E87.1 Hypo-osmolality and hyponatremia; E87.6 Hypokalemia; G89.29 Other chronic pain; M54.5 Low back pain; J44.9 Chronic obstructive pulmonary disease, unspecified; M19.90 Unspecified osteoarthritis, unspecified site; F41.9 Anxiety disorder, unspecified; F32.9 Major depressive disorder, single episode, unspecified; I45.81 Long QT syndrome; F17.210 Nicotine dependence, cigarettes, uncomplicated; I49.3 Ventricular premature depolarization; R11.2 Nausea with vomiting, unspecified; T40.2X5A Adverse effect of other opioids, initial encounter; I10 Essential (primary) hypertension; Z88.6 Allergy status to analgesic agent; Z79.899 Other long term (current) drug therapy; Z83.6 Family history of other diseases of the respiratory system; Z82.49 Family history of ischemic heart disease and other diseases of the circulatory system
CPT/HCPCS: 36415; 74019; 80048; 80053; 80307; 81001; 81025; 82607; 82746; 83540; 83690; 83735; 84100; 84484; 85025; 85027; 87045; 87086; 87205; 87493; 93005; 93010; 96361; 96365; 96366; 96368; 96372; 96375; 99285; J1630; J1644; J1885; J2060; J3475; J3480; J3490; J7030; J7050; S0164

== ENCOUNTER 2018-04-27 11:28 | Emergency (ER) | payer OTHER ==
[2018-04-27 11:48] VITALS: BP 110/66
--- NOTE | 2018-04-27 12:23 | ER Document Report ---
ED Medical Screen (RME) - General Chief Complaint: Difficulty Swallowing Stated Complaint: THROAT PAIN Time Seen by Provider: 04/27/18 12:16 Notes: RAPID MEDICAL EVALUATION DISCLOSURE I have seen this patient as part of a Rapid Medical Evaluation and, if applicable, placed any initially appropriate orders. The patient will be seen and fully evaluated, including a full history and physical exam, by a provider ( in Main ED or Fast Track) when a room becomes available. 52-year-old female here with complaints over the past 1 week of difficulty swallowing "because it feels like it is getting stuck in my chest". She states that it started the same night that she went to eat sushi and some other foods at a restaurant. After eating these foods, she went home and tried to drink a can of fruit punch but was unable to do so because it felt like it was getting stuck. However she is able to swallow her saliva. She has no prior history of esophageal strictures but has a family history in the father requiring dilatation. Denies shortness of breath lightheadedness diaphoresis. EXAM CTAB RRR TRAVEL OUTSIDE OF THE [place] IN LAST 30 DAYS: No - Related Data Allergies/Adverse Reactions: codeine [Codeine] Allergy (Verified 04/27/18 12:13) Past Medical History - Social History Chew tobacco use (# tins/day): No Frequency of alcohol use: None Drug Abuse: None - Past Medical History Cardiac Medical History: Reports: Hx Hypertension - pt reports does not take medication regularly Denies: Hx Atrial Fibrillation, Hx Congestive Heart Failure, Hx Coronary Artery Disease, Hx DVT, Hx Pulmonary Embolism Pulmonary Medical History: Reports: Hx Asthma, Hx COPD Neurological Medical History: Denies: Hx Cerebrovascular Accident, Hx Migraine Renal/ Medical History: Denies: Hx Peritoneal Dialysis GI Medical History: Denies: Hx Cirrhosis Musculoskeltal Medical History: Reports Hx Arthritis Psychiatric Medical History: Reports: Hx Anxiety, Hx Depression Past Surgical History: Reports: Hx Appendectomy, Hx Orthopedic Surgery - left shoulder - Immunizations Hx Diphtheria, Pertussis, Tetanus Vaccination: No History of Influenza Vaccine for 07/2017 - 12/2017 Season: No Physical Exam - Vital signs Vitals: Temp Pulse Resp BP Pulse Ox 99.3 F 70 16 110/66 100 04/27/18 11:48 04/27/18 11:48 04/27/18 11:48 04/27/18 11:48 04/27/18 11:48 Course - Vital Signs Vital signs: Temp Pulse Resp BP Pulse Ox 99.3 F 70 16 110/66 100 04/27/18 11:48 04/27/18 11:48 04/27/18 11:48 04/27/18 11:48 04/27/18 11:48 Doctor's Discharge - Discharge Referrals: BERNICE PERALES DO [Primary Care Provider] - Follow up as needed
[2018-04-27 12:50] LABS: ABSOLUTE BASOPHILS # (AUTO) 0.1 10^3/uL (0.0-0.2); ABSOLUTE LYMPHOCYTES (AUTO) 2.3 10^3/uL (0.5-4.7); ABSOLUTE MONOCYTES (AUTO) 0.3 10^3/uL (0.1-1.4); ABSOLUTE NEUT (AUTO) 4.9 10^3/uL (1.7-8.2); BASOPHILS % (AUTO) 0.7 % (0-2); EOSINOPHILS % (AUTO) 0.2 % (0-6); HEMATOCRIT 40.5 % (36.0-47.0); LYMPHOCYTES % (AUTO) 29.9 % (13-45); MEAN CORPUSCULAR HEMOGLOBIN 34.7 pg (27.0-33.4); MEAN CORPUSCULAR HGB CONC 34.5 g/dL (32.0-36.0); MEAN CORPUSCULAR VOLUME 101 fl (80-97); MONOCYTES % (AUTO) 4.4 % (3-13); PLATELET COUNT 289 10^3/uL (150-450); RED BLOOD COUNT 4.02 10^6/uL (3.72-5.28); RED CELL DISTRIBUTION WIDTH 13.4 % (11.5-14.0); SEGMENTED NEUTROPHILS % (AUTO) 64.8 % (42-78); TOTAL CELLS COUNTED % (AUTO) 100 %; WHITE BLOOD COUNT 7.6 10^3/uL (4.0-10.5)
--- NOTE | 2018-04-27 13:08 | RADIOLOGY REPORT (SQ) ---
EXAM DESCRIPTION: CHEST 2 VIEWS COMPLETED DATE/TIME: 04/27/2018 12:49 pm REASON FOR STUDY: chest tightness COMPARISON: 07/26/2017 EXAM PARAMETERS: NUMBER OF VIEWS: two views TECHNIQUE: Digital Frontal and Lateral radiographic views of the chest acquired. RADIATION DOSE: NA LIMITATIONS: none FINDINGS: LUNGS AND PLEURA: Findings suggest mild COPD. No acute opacities, masses or pneumothorax. No pleural effusion. MEDIASTINUM AND HILAR STRUCTURES: No masses or contour abnormalities. HEART AND VASCULAR STRUCTURES: Heart normal size. No evidence for failure. BONES: No acute findings. HARDWARE: None in the chest. OTHER: No other significant finding. IMPRESSION: NO ACUTE RADIOGRAPHIC FINDING IN THE CHEST. TECHNICAL DOCUMENTATION: JOB ID: [id number] [employer]- All Rights Reserved Reading location - IP/workstation name: [email or web address]
[2018-04-27 13:13] LABS: ALANINE AMINOTRANSFERASE 26 U/L (9-52); ALBUMIN 4.4 g/dL (3.5-5.0); ALKALINE PHOSPHATASE 109 U/L (38-126); ANION GAP 14 (5-19); ASPARTATE AMINO TRANSFERASE 28 U/L (14-36); BILIRUBIN,DIRECT 0.4 mg/dL (0.0-0.4); BILIRUBIN,TOTAL 0.7 mg/dL (0.2-1.3); BLOOD UREA NITROGEN 15 mg/dL (7-20); CALCIUM 9.4 mg/dL (8.4-10.2); CARBON DIOXIDE 21 mmol/L (22-30); CHLORIDE 110 mmol/L (98-107); GLUCOSE 82 mg/dL (75-110); LIPASE 65.8 U/L (23-300); POTASSIUM 3.1 mmol/L (3.6-5.0); TOTAL PROTEIN 7.4 g/dL (6.3-8.2)
--- NOTE | 2018-04-27 13:58 | RADIOLOGY REPORT (SQ) ---
EXAM DESCRIPTION: BARIUM SWALLOW ESOPHAGUS COMPLETED DATE/TIME: 04/27/2018 1:33 pm REASON FOR STUDY: FB sensation w swallowing food/drink COMPARISON: Two-view chest 04/27/2018 CT chest 06/19/2014 TECHNIQUE: Under fluoroscopic guidance, patient ingested effervescent granules followed by thick and thin barium. Fluoroscopic spot images and routine radiographic images acquired and stored on PACS. 12 MM BARIUM TABLET GIVEN: Yes. 12 mm barium tablet paused in the distal esophagus, just above the GE junction for about 10 minutes b efore partially melting, and dropping through into the stomach. LIMITATIONS: None. FLUOROSCOPY TIME: FLUORO TIME: 2 minutes 55 seconds 25 series of images saved to PACS. FINDINGS: NEUROMUSCULAR COORDINATION OF SWALLOW: Normal. No aspiration. ESOPHAGEAL MOTILITY: Normal peristalsis. No esophageal spasm. ESOPHAGEAL MUCOSA: Distal esophageal mucosal irregularity just above a tiny hiatal hernia. Esophagit is or Cardoso's esophagus may be present. GASTRO-ESOPHAGEAL JUNCTION: Small sliding hiatal hernia. There is reflux from the stomach into the d istal esophagus, with a 5 cm long segment of distal esophageal luminal narrowing from peptic related stricture. Mild distal esophageal mucosal irregularity, esophagitis versus Cardoso's esophagus. STOMACH AND DUODENUM: Delayed gastric emptying. Very thickened folds in the antrum and duodenum wor risome for peptic disease. NON-GI TRACT STRUCTURES: No significant finding. OTHER: No other significant finding. IMPRESSION: No retained food bolus Distal esophageal narrowing just above a tiny hiatal hernia. In the setting of reflux this is likely a peptic stricture. This impeded passage of the 12 mm barium tablet Distal esophageal mucosal irregularity, esophagitis versus Cardoso's esophagus Delayed gastric emptying with thickened antral folds and duodenum folds likely due to peptic disease COMMENT: Quality ID [id number]: Final reports for procedures using fluoroscopy that document radiation exp osure indices, or exposure time and number of fluorographic images (if radiation exposure indices are not available) TECHNICAL DOCUMENTATION: JOB ID: [id number] [employer]- All Rights Reserved Reading location - IP/workstation name: [email or web address]
--- NOTE | 2018-04-27 14:31 | ER Document Report ---
ED General - General Chief Complaint: Difficulty Swallowing Stated Complaint: THROAT PAIN Time Seen by Provider: 04/27/18 12:16 Mode of Arrival: Ambulatory Information source: Patient Notes: 52-year-old female presents emergency department with complaints of difficulty swallowing for the last week. Patient states that she ate sushi and felt like a piece of it was lodged in the esophagus. She states that she has been having difficulty swallowing ever since. Patient states that she is able to consume liquids and soft foods. She is concerned about having an esophageal stricture because they run in her family. She states that her father required esophageal dilatation. Patient denies any nausea, vomiting, abdominal pain, chest pain, shortness of breath. TRAVEL OUTSIDE OF THE [place] IN LAST 30 DAYS: No - HPI Onset: Last week Onset/Duration: Sudden Quality of pain: No pain Severity: None Pain Level: Denies Associated symptoms: None Exacerbated by: Denies Relieved by: Denies Similar symptoms previously: No Recently seen / treated by doctor: No - Related Data Allergies/Adverse Reactions: codeine [Codeine] Allergy (Verified 04/27/18 12:13) Past Medical History - General Information source: Patient - Social History Smoking Status: Current Every Day Smoker Chew tobacco use (# tins/day): No Frequency of alcohol use: None Drug Abuse: None Family History: COPD, Hypertension Patient has suicidal ideation: No Patient has homicidal ideation: No - Past Medical History Cardiac Medical History: Reports: Hx Hypertension - pt reports does not take medication regularly Denies: Hx Atrial Fibrillation, Hx Congestive Heart Failure, Hx Coronary Artery Disease, Hx DVT, Hx Pulmonary Embolism Pulmonary Medical History: Reports: Hx Asthma, Hx COPD Neurological Medical History: Denies: Hx Cerebrovascular Accident, Hx Migraine Renal/ Medical History: Denies: Hx Peritoneal Dialysis GI Medical History: Denies: Hx Cirrhosis Musculoskeltal Medical History: Reports Hx Arthritis Psychiatric Medical History: Reports: Hx Anxiety, Hx Depression Past Surgical History: Reports: Hx Appendectomy, Hx Orthopedic Surgery - left shoulder - Immunizations Hx Diphtheria, Pertussis, Tetanus Vaccination: No Review of Systems - Review of Systems Constitutional: No symptoms reported EENT: No symptoms reported Cardiovascular: No symptoms reported Respiratory: No symptoms reported Gastrointestinal: Other - difficulty swallowing Genitourinary: No symptoms reported Female Genitourinary: No symptoms reported Musculoskeletal: No symptoms reported Hematologic/Lymphatic: No symptoms reported Neurological/Psychological: No symptoms reported -: Yes All other systems reviewed and negative Physical Exam - Vital signs Vitals: Temp Pulse Resp BP Pulse Ox 99.3 F 70 16 110/66 100 04/27/18 11:48 04/27/18 11:48 04/27/18 11:48 04/27/18 11:48 04/27/18 11:48 Interpretation: Normal - Notes Notes: PHYSICAL EXAMINATION: GENERAL: Well-appearing, well-nourished and in no acute distress. HEAD: Atraumatic, normocephalic. EYES: Pupils equal round and reactive to light, extraocular movements intact, conjunctiva are normal. ENT: Nares patent, oropharynx clear without exudates. Moist mucous membranes. NECK: Normal range of motion, supple without lymphadenopathy LUNGS: Breath sounds clear to auscultation bilaterally and equal. No wheezes rales or rhonchi. HEART: Regular rate and rhythm without murmurs ABDOMEN: Soft, nontender, nondistended abdomen. No guarding, no rebound. No masses appreciated. Female : deferred Musculoskeletal: Normal range of motion, no pitting or edema. No cyanosis. NEUROLOGICAL: Cranial nerves grossly intact. Normal speech, normal gait. Normal sensory, motor exams PSYCH: Normal mood, normal affect. SKIN: Warm, Dry, normal turgor, no rashes or lesions noted. Course - Re-evaluation Re-evalutation: 04/27/18 14:35 Labs and imaging obtained. Patient's potassium was 3.1. Patient was given potassium chloride in the emergency department. Patient had a chest x-ray that was done and was unremarkable. A barium swallow was done. Patient was found to have peptic disease, esophagitis versus Cardoso's esophagus, peptic stricture. Patient is able to consume soft foods and liquids. There's no GI coverage today. I discussed transfer vs following up outpatient with the patient. She declines transfer. Says she's able to eat and drink. I will refer her to GI. I will start her on omeprazole. I instructed her to follow up with GI and here PCP this week, to take medication as directed, and to return for worsening symptoms. - Vital Signs Vital signs: Temp Pulse Resp BP Pulse Ox 99.3 F 70 16 110/66 100 04/27/18 11:48 04/27/18 11:48 04/27/18 11:48 04/27/18 11:48 04/27/18 11:48 - Laboratory Result Diagrams: 04/27/18 12:35 04/27/18 12:35 Laboratory results interpreted by me: 04/27/18 04/27/18 12:35 12:35 MCV 101 H MCH 34.7 H Potassium 3.1 L Chloride 110 H Carbon Dioxide 21 L Discharge - Discharge Clinical Impression: Peptic disease, Esophagitis, Peptic stricture of esophagus Condition: Good Disposition: HOME, SELF-CARE Instructions: Esophagitis ([facility]) Prescriptions: Omeprazole 20 mg PO DAILY #14 tablet.dr Referrals: BERNICE PERALES DO [Primary Care Provider] - Follow up as needed SEBLE SHELLEY MD [ACTIVE STAFF] - Follow up as needed
[2018-04-27] MEDS ORDERED: POTASSIUM CHLORIDE 10 MEQ CAPSULE.ER PO ONE (14:34)
== END 2018-04-27 14:53 | disposition home or self-care (01) ==
LOC: ER 11:28
DX: K20.9 Esophagitis, unspecified (principal); K22.2 Esophageal obstruction; K44.9 Diaphragmatic hernia without obstruction or gangrene; K30 Functional dyspepsia; R13.10 Dysphagia, unspecified; F17.200 Nicotine dependence, unspecified, uncomplicated; I10 Essential (primary) hypertension; J44.9 Chronic obstructive pulmonary disease, unspecified; Z88.5 Allergy status to narcotic agent; Z83.79 Family history of other diseases of the digestive system
CPT/HCPCS: 36415; 71046; 74220; 80053; 83690; 84484; 85025; 99285

== ENCOUNTER 2018-08-17 13:15 | Emergency (ER) | payer OTHER ==
[2018-08-17 13:22] VITALS: BP 164/92
--- NOTE | 2018-08-17 13:40 | ER Document Report ---
HPI - HPI Pain Level: 5 Notes: Patient is a 53-year-old female with no significant past medical history who presents to the ED complaining of left foot and left ankle pain status post injury yesterday. Patient states that she twisted her foot and believes that she may have broke it. Patient states that she heard a pop during the process. She has had swelling and pain since then. Patient states that she has trouble with weightbearing because of the pain. Pain does not radiate otherwise. Movement of her foot makes the pain worse as well as touching. Denies any headache, fever, URI, sore throat, chest pain, palpitations, syncope , cough, shortness of breath, wheeze, dyspnea, abdominal pain, nausea/vomiting/ diarrhea, urinary retention, dysuria, hematuria, numbness/tingling, muscle paralysis/weakness, or rash. - ROS Systems Reviewed and Negative: Yes All other systems reviewed and negative - REPRODUCTIVE Reproductive: DENIES: : Past Medical History - Social History Smoking Status: Current Every Day Smoker Family History: COPD, Hypertension Patient has suicidal ideation: No Patient has homicidal ideation: No - Past Medical History Cardiac Medical History: Reports: Hx Hypertension - pt reports does not take medication regularly Denies: Hx Atrial Fibrillation, Hx Congestive Heart Failure, Hx Coronary Artery Disease, Hx DVT, Hx Pulmonary Embolism Pulmonary Medical History: Reports: Hx Asthma, Hx COPD Neurological Medical History: Denies: Hx Cerebrovascular Accident, Hx Migraine Renal/ Medical History: Denies: Hx Peritoneal Dialysis GI Medical History: Denies: Hx Cirrhosis Musculoskeletal Medical History: Reports Hx Arthritis Psychiatric Medical History: Reports: Hx Anxiety, Hx Depression Past Surgical History: Reports: Hx Appendectomy, Hx Orthopedic Surgery - left shoulder - Immunizations Hx Diphtheria, Pertussis, Tetanus Vaccination: No Vertical Provider Document - CONSTITUTIONAL Agree With Documented VS: Yes Notes: PHYSICAL EXAMINATION: GENERAL: Well-appearing, well-nourished and in no acute distress. LUNGS: Breath sounds clear to auscultation bilaterally and equal. No wheezes rales or rhonchi. HEART: Regular rate and rhythm without murmurs, rubs, gallops. Musculoskeletal: Lt foot/ankle: + mild swelling noted. + tenderness to the dorsal foot, ATFL, and lateral malleolus. LROM to passive/active dorsiflexion. Strength 5+/5. N/V intact distal. Achilles intact. Extremities: No cyanosis, clubbing, or edema b/l. Peripheral pulses 2+. Capillary refill less than 3 seconds. NEUROLOGICAL: Normal speech, limping gait. Normal sensory, motor exams PSYCH: Normal mood, normal affect. SKIN: Warm, Dry, normal turgor, no rashes or lesions noted. - INFECTION CONTROL TRAVEL OUTSIDE OF THE [place] IN LAST 30 DAYS: No Course - Re-evaluation Re-evalutation: 08/17/18 14:42 Patient is an afebrile, well-hydrated, 53-year-old female who presents to the ED with left ankle/foot pain which I suspect to be a sprain versus strain. Vitals are acceptable without any significant tachycardia, tachypnea, or hypoxia. PE is otherwise unremarkable for any neurovascular compromise, obvious tendon/ligament rupture, obvious fracture/dislocation, septic joint. X- ray was unremarkable for any acute pathology. Ankle stirrup and crutches were provided today. Patient declined any Tylenol or ice. Patient is nontoxic- appearing. Patient is able to ambulate and weight-bear although she is limping. No other labs or imaging warranted at this time based on H&P. Conservative measures otherwise for symptoms. Recheck with your PCM in 3-5 days. Consider consult orthopedics. Return to the ED with any worsening/ concerning symptoms otherwise as reviewed in discharge. Patient is in agreement. - Vital Signs Vital signs: Temp Pulse Resp BP Pulse Ox 97.9 F 91 20 164/92 H 97 08/17/18 13:19 08/17/18 13:19 08/17/18 13:19 08/17/18 13:19 08/17/18 13:19 Discharge - Discharge Clinical Impression: Left foot pain Left ankle pain Qualifiers: Chronicity: acute Qualified Code(s): M25.572 - Pain in left ankle and joints of left foot Condition: Stable Disposition: HOME, SELF-CARE Additional Instructions: Rest, Ice, Compression, Elevation Use crutches/splint as directed Tylenol/ibuprofen as needed Light stretches daily Strength exercises as able Moist heat and massage may help F/u with your PCP in 3-5 days for a recheck Consider consult(s) with Orthopedics/physical therapy for ongoing/worsening symptoms Return to the ED with any worsening symptoms and/or development of fever, headache, chest pain, palpitations, syncope, shortness of breath, trouble breathing, abdominal pain, n/v/d, muscle weakness/paralysis, numbness/tingling, swelling, redness, or other worsening symptoms that are concerning to you. Prescriptions: Naproxen 500 mg PO BID PRN #20 tablet PRN Reason: Forms: Elevated Blood Pressure Referrals: BERNICE PERALES DO [Primary Care Provider] - Follow up as needed [facility] [Provider Group] - Follow up as needed
--- NOTE | 2018-08-17 14:15 | RADIOLOGY REPORT (SQ) ---
EXAM DESCRIPTION: ANKLE LEFT COMPLETE COMPLETED DATE/TIME: 08/17/2018 2:04 pm REASON FOR STUDY: pain s/p injury COMPARISON: None. NUMBER OF VIEWS: Three views. TECHNIQUE: AP, lateral, and oblique radiographic images acquired of the left ankle. LIMITATIONS: None. FINDINGS: MINERALIZATION: Normal. BONES: No acute fracture or dislocation. No worrisome bone lesions. JOINTS: No effusions. SOFT TISSUES: No soft tissue swelling. No foreign body. OTHER: No other significant finding. IMPRESSION: NEGATIVE STUDY OF THE LEFT ANKLE. NO RADIOGRAPHIC EVIDENCE OF ACUTE INJURY. TECHNICAL DOCUMENTATION: JOB ID: [id number] [employer]- All Rights Reserved Reading location - IP/workstation name: [email or web address]
--- NOTE | 2018-08-17 14:16 | RADIOLOGY REPORT (SQ) ---
EXAM DESCRIPTION: FOOT LEFT COMPLETE COMPLETED DATE/TIME: 08/17/2018 2:04 pm REASON FOR STUDY: pain s/p injury COMPARISON: None. NUMBER OF VIEWS: Three views. TECHNIQUE: AP, lateral and oblique radiographic images acquired of the left foot. LIMITATIONS: None. FINDINGS: MINERALIZATION: Normal. BONES: No acute fracture or dislocation. No worrisome bone lesions. JOINTS: No effusions. SOFT TISSUES: No soft tissue swelling. No foreign body. OTHER: No other significant finding. IMPRESSION: NO RADIOGRAPHIC EVIDENCE OF ACUTE INJURY. TECHNICAL DOCUMENTATION: JOB ID: [id number] [employer]- All Rights Reserved Reading location - IP/workstation name: [facility]-[email or web address]
[2018-08-17] MEDS ORDERED: KETOROLAC TROMETHAMINE INJ/PF 30 MG/1 ML SDV IM ONE (15:11)
== END 2018-08-17 15:24 | disposition home or self-care (01) ==
LOC: ER 13:15
DX: M79.672 Pain in left foot (principal); M25.572 Pain in left ankle and joints of left foot; F17.200 Nicotine dependence, unspecified, uncomplicated
CPT/HCPCS: 99283; 96372; 73610; 73630; L1902; J1885

== ENCOUNTER → 2019-04-12 | Outpatient (CLI) | payer OTHER ==
[2019-04-12 11:51] LABS: ABSOLUTE EOSINOPHILS # (AUTO) 0.1 10^3/uL (0.0-0.6); ABSOLUTE LYMPHOCYTES (AUTO) 1.5 10^3/uL (0.5-4.7); ABSOLUTE MONOCYTES (AUTO) 0.4 10^3/uL (0.1-1.4); ABSOLUTE NEUT (AUTO) 4.7 10^3/uL (1.7-8.2); BASOPHILS % (AUTO) 0.5 % (0-2); EOSINOPHILS % (AUTO) 0.8 % (0-6); HEMATOCRIT 45.1 % (36.0-47.0); HEMOGLOBIN 15.5 g/dL (12.0-15.5); LYMPHOCYTES % (AUTO) 22.3 % (13-45); MEAN CORPUSCULAR HEMOGLOBIN 34.3 pg (27.0-33.4); MEAN CORPUSCULAR HGB CONC 34.4 g/dL (32.0-36.0); MEAN CORPUSCULAR VOLUME 100 fl (80-97); MONOCYTES % (AUTO) 5.3 % (3-13); PLATELET COUNT 269 10^3/uL (150-450); RED BLOOD COUNT 4.52 10^6/uL (3.72-5.28); RED CELL DISTRIBUTION WIDTH 13.2 % (11.5-14.0); SEGMENTED NEUTROPHILS % (AUTO) 71.1 % (42-78); TOTAL CELLS COUNTED % (AUTO) 100 %; WHITE BLOOD COUNT 6.6 10^3/uL (4.0-10.5)
[2019-04-12 12:12] LABS: ALANINE AMINOTRANSFERASE 31 U/L (9-52); ALBUMIN 4.6 g/dL (3.5-5.0); ALKALINE PHOSPHATASE 89 U/L (38-126); ANION GAP 9 (5-19); ASPARTATE AMINO TRANSFERASE 30 U/L (14-36); BILIRUBIN,DIRECT 0.2 mg/dL (0.0-0.4); BILIRUBIN,TOTAL 1.2 mg/dL (0.2-1.3); BLOOD UREA NITROGEN 10 mg/dL (7-20); C-REACTIVE PROTEIN 5.5 mg/L (<10.0); CALCIUM 10.1 mg/dL (8.4-10.2); CARBON DIOXIDE 32 mmol/L (22-30); CHLORIDE 101 mmol/L (98-107); GLUCOSE 90 mg/dL (75-110); POTASSIUM 3.7 mmol/L (3.6-5.0); SODIUM 141.6 mmol/L (137-145); TOTAL PROTEIN 7.8 g/dL (6.3-8.2)
[2019-04-12 12:30] LABS: ERYTHROCYTE SEDIMENTATION RATE 5 mm/hr (0-30)
[2019-04-13 13:03] LABS: CHOLESTEROL 153.31 mg/dL (0-200); TRIGLYCERIDES 129 mg/dL (<150)
[2019-04-13 13:25] LABS: DIRECT LDL 75 mg/dL (<100)
== END ==
LOC: OD 11:03
PROVIDERS: ATTEND Family Medicine
DX: I10 Essential (primary) hypertension (principal); N81.4 Uterovaginal prolapse, unspecified; R10.84 Generalized abdominal pain; R13.10 Dysphagia, unspecified
CPT/HCPCS: 36415; 80053; 80061; 84443; 85025; 85652; 86140

== ENCOUNTER → 2019-04-16 | Outpatient (CLI) | payer OTHER ==
--- NOTE | 2019-04-16 11:42 | RADIOLOGY REPORT (SQ) ---
EXAM DESCRIPTION: CT ABD/PELVIS WITH IV ORAL COMPLETED DATE/TIME: 04/16/2019 10:12 am REASON FOR STUDY: R10.84 GENERALIZED ABDOMINAL PAIN R10.84 GENERALIZED ABDOMINAL PAIN COMPARISON: Abdominal ultrasound 07/26/2017 CT chest 06/19/2014 TECHNIQUE: CT scan of the abdomen and pelvis performed using helical scanning technique with dynamic intravenous contrast injection. Patient drank oral contrast. Images reviewed with lung, soft tissue , and bone windows. Reconstructed coronal and sagittal MPR images reviewed. Delayed images for evalua tion of the urinary system also acquired. All images stored on PACS. All CT scanners at this facility use dose modulation, iterative reconstruction, and/or weight based d osing when appropriate to reduce radiation dose to as low as reasonably achievable (ALARA). [facility]: Dose Right [facility]: CareDose [facility]: Dose Right [facility]: Teradose 4D [facility]: [employer] CONTRAST TYPE AND DOSE: contrast/concentration: Isovue 350.00 mg/ml; Total Contrast Delivered: 82.0 ml; Total Saline Delivered: 68.0 ml RENAL FUNCTION: Creatinine 0.82 RADIATION DOSE: CT Rad equipment meets quality standard of care and radiation dose reduction techniq ues were employed. CTDIvol: 6.5 - 7.5 mGy. DLP: 700 mGy-cm.. LIMITATIONS: None. FINDINGS: LOWER CHEST: No significant findings. No nodules or infiltrates. LIVER: Normal size. No masses. No dilated ducts. SPLEEN: Normal size. No focal lesions. PANCREAS: No masses. No significant calcifications. No adjacent inflammation or peripancreatic fluid collections. Pancreatic duct not dilated. GALLBLADDER: No identified stones by CT criteria. No inflammatory changes to suggest cholecystitis. ADRENAL GLANDS: No significant masses or asymmetry. RIGHT KIDNEY AND URETER: No solid masses. No significant calcifications. No hydronephrosis or hyd roureter. LEFT KIDNEY AND URETER: No solid masses. No significant calcifications. No hydronephrosis or hydr oureter. AORTA AND VESSELS: No aneurysm. No dissection. Renal arteries, SMA, celiac without stenosis. RETROPERITONEUM: No retroperitoneal adenopathy, hemorrhage or masses. BOWEL AND PERITONEAL CAVITY: Patient drank oral contrast. No CT evidence of bowel obstruction or juan j e intraperitoneal air or fluid. Bowel wall thickening. No colonic diverticulosis or colonic diverti culitis APPENDIX: Surgically absent PELVIS: No mass. No free fluid. Normal bladder. Normal size female pelvic organs ABDOMINAL WALL: No masses. No hernias. BONES: No significant or acute findings. OTHER: No other significant finding. IMPRESSION: NO SIGNIFICANT OR ACUTE FINDING IN THE ABDOMEN OR PELVIS ON CT SCAN WITH IV CONTRAST. TECHNICAL DOCUMENTATION: JOB ID: [id number] Quality ID # [id number]: Final reports with documentation of one or more dose reduction techniques (e.g., Au tomated exposure control, adjustment of the mA and/or kV according to patient size, use of iterative reconstruction technique) 2010 [employer]- All Rights Reserved Reading location - IP/workstation name: [facility]-
== END ==
LOC: RAD 09:47
PROVIDERS: ATTEND Family Medicine
DX: R10.84 Generalized abdominal pain (principal); R10.2 Pelvic and perineal pain
CPT/HCPCS: 74177

== ENCOUNTER 2019-04-29 09:03 | Inpatient (IN) | payer OTHER ==
[2019-04-29] MEDS ORDERED: METOCLOPRAMIDE HCL ORAL SOLN 10 MG/10 ML UDCUP PO ONE (09:24)
[2019-04-29] MEDS ORDERED: MAG HYDROX/AL HYDROX/SIMETH SUSP 30 ML UDCUP PO ONE (09:24)
[2019-04-29] MEDS ORDERED: LIDOCAINE 2% VISCOUS SOLN 20 ML UDCUP PO ONE (09:24)
--- NOTE | 2019-04-29 09:25 | ER Document Report ---
ED Medical Screen (RME) - General Chief Complaint: Abdominal Pain Stated Complaint: STOMACH PAIN Time Seen by Provider: 04/29/19 09:14 Primary Care Provider: BERNICE MERCHANT DO [Primary Care Provider] - Follow up as needed Mode of Arrival: Wheelchair Information source: Patient Notes: Patient presents to the emergency department with complaints of chronic abdominal pain. Reports she is been evaluated by Dr. Merchant has had a CT scan lab work done recently. Patient reports she is had this abdominal pain for over a year. Reports chronic vomiting declined antinausea medicine. Reports fever but has not taken her temperature. Patient reports she was able to drink some water this morning. Has history of reflux. I have greeted and performed a rapid initial assessment of this patient. A comprehensive ED assessment and evaluation of the patient, analysis of test results and completion of the medical decision making process will be conducted by additional ED providers. Dictation of this chart was performed using voice recognition software; therefore, there may be some unintended grammatical errors. TRAVEL OUTSIDE OF THE [place] IN LAST 30 DAYS: No - Related Data Allergies/Adverse Reactions: codeine [Codeine] Allergy (Verified 08/17/18 13:17) Past Medical History - Past Medical History Cardiac Medical History: Reports: Hx Hypertension - pt reports does not take medication regularly Denies: Hx Atrial Fibrillation, Hx Congestive Heart Failure, Hx Coronary Artery Disease, Hx DVT, Hx Pulmonary Embolism Pulmonary Medical History: Reports: Hx Asthma, Hx COPD Neurological Medical History: Denies: Hx Cerebrovascular Accident, Hx Migraine Renal/ Medical History: Denies: Hx Peritoneal Dialysis GI Medical History: Denies: Hx Cirrhosis Musculoskeltal Medical History: Reports Hx Arthritis Psychiatric Medical History: Reports: Hx Anxiety, Hx Depression Past Surgical History: Reports: Hx Appendectomy, Hx Orthopedic Surgery - left shoulder - Immunizations Hx Diphtheria, Pertussis, Tetanus Vaccination: No History of Influenza Vaccine for 07/2017 - 12/2017 Season: No Physical Exam - Vital signs Vitals: Temp Pulse Resp BP Pulse Ox 97.7 F 81 16 158/91 H 100 04/29/19 09:10 04/29/19 09:10 04/29/19 09:10 04/29/19 09:10 04/29/19 09:10 Course - Vital Signs Vital signs: Temp Pulse Resp BP Pulse Ox 97.7 F 81 16 158/91 H 100 04/29/19 09:10 04/29/19 09:10 04/29/19 09:10 04/29/19 09:10 04/29/19 09:10 Doctor's Discharge - Discharge Referrals: BERNICE MERCHANT DO [Primary Care Provider] - Follow up as needed
[2019-04-29] MEDS ORDERED: MORPHINE SULFATE 10 MG/ML INJ IV ONE (10:06)
[2019-04-29] MEDS ORDERED: NORMAL SALINE 1000 ML 1,000 ML IV ONE (10:06)
[2019-04-29] MEDS ORDERED: ONDANSETRON HCL INJ/PF 4 MG/2 ML SDV IV ONE (10:06)
[2019-04-29 10:32] LABS: ALANINE AMINOTRANSFERASE 30 U/L (9-52); ALBUMIN 5.2 g/dL (3.5-5.0); ALKALINE PHOSPHATASE 120 U/L (38-126); AMYLASE 59 U/L (30-110); ASPARTATE AMINO TRANSFERASE 39 U/L (14-36); BILIRUBIN,DIRECT 0.3 mg/dL (0.0-0.4); BILIRUBIN,TOTAL 1.9 mg/dL (0.2-1.3); BLOOD UREA NITROGEN 11 mg/dL (7-20); CALCIUM 10.5 mg/dL (8.4-10.2); CARBON DIOXIDE 24 mmol/L (22-30); GLUCOSE 127 mg/dL (75-110); LIPASE 130.6 U/L (23-300); POTASSIUM 3.6 mmol/L (3.6-5.0); TOTAL PROTEIN 8.4 g/dL (6.3-8.2)
[2019-04-29 10:33] LABS: ALCOHOL < 10 mg/dL (NONE DETECTED)
[2019-04-29 10:37] LABS: ANION GAP 18 (5-19); CHLORIDE 74 mmol/L (98-107)
--- NOTE | 2019-04-29 11:07 | RADIOLOGY REPORT (SQ) ---
EXAM DESCRIPTION: U/S ABDOMEN LIMITED W/O DOP COMPLETED DATE/TIME: 04/29/2019 10:45 am REASON FOR STUDY: RUQ abd pain COMPARISON: None. TECHNIQUE: Dynamic and static grayscale images acquired of the right upper quadrant and recorded on PACS. Additional selected color Doppler and spectral images recorded. LIMITATIONS: Study limited due to acoustical interference from fat or from air in the bowel. FINDINGS: PANCREAS: Visualized pancreas and duct normal. Parts of pancreas poorly seen secondary to acoustical interference from fat or from air in the bowel. LIVER: No masses. Echotexture normal. LIVER VASCULATURE: Normal directional flow of the main portal vein and hepatic veins. GALLBLADDER: No stones. Normal wall thickness. No pericholecystic fluid. ULTRASOUND-DETECTED HARRINGTON'S SIGN: Negative. INTRAHEPATIC DUCTS AND COMMON DUCT: CBD and intrahepatic ducts normal caliber. No filling defects. INFERIOR VENA CAVA: Normal flow. AORTA: Obscured by bowel gas. RIGHT KIDNEY: Normal size. Normal echogenicity. No solid or suspicious masses. No hydronephrosis. No calcifications. PERITONEAL CAVITY AND RIGHT PLEURAL SPACE: No ascites or effusions. OTHER: No other significant finding. IMPRESSION: NORMAL RIGHT UPPER QUADRANT ULTRASOUND. PANCREAS PARTIALLY OBSCURED BY GAS. TECHNICAL DOCUMENTATION: JOB ID: [id number] [employer]- All Rights Reserved Reading location - IP/workstation name: [email or web address]
[2019-04-29 12:06] LABS: APPEARANCE,URINE CLOUDY; BILIRUBIN,URINE NEGATIVE (NEGATIVE); COLOR,URINE AMBER; GLUCOSE, URINE 50 mg/dL (NEGATIVE); KETONES,URINE NEGATIVE (NEGATIVE); LEUKOCYTE ESTERASE,URINE NEGATIVE (NEGATIVE); NITRITE,URINE NEGATIVE (NEGATIVE); PROTEIN,URINE NEGATIVE (NEGATIVE); URINE SPECIFIC GRAVITY 1.008; UROBILINOGEN,URINE NEGATIVE mg/dL (<2.0)
[2019-04-29 12:09] LABS: ABSOLUTE BASOPHILS # (AUTO) 0.1 10^3/uL (0.0-0.2); TOTAL CELLS COUNTED % (AUTO) 100 %
[2019-04-29 12:19] LABS: URINE AMPHETAMINES SCREEN NEGATIVE; URINE BARBITURATES SCREEN NEGATIVE; URINE BENZODIAZEPINES SCREEN NEGATIVE; URINE COCAINE SCREEN NEGATIVE; URINE MARIJUANA (THC) SCREEN NEGATIVE; URINE METHADONE SCREEN NEGATIVE; URINE PHENCYCLIDINE SCREEN NEGATIVE
[2019-04-29 12:20] LABS: ABSOLUTE LYMPHOCYTES (AUTO) 1.8 10^3/uL (0.5-4.7); ABSOLUTE MONOCYTES (AUTO) 0.8 10^3/uL (0.1-1.4); ABSOLUTE NEUT (AUTO) 8.6 10^3/uL (1.7-8.2); BASOPHILS % (AUTO) 0.7 % (0-2); EOSINOPHILS % (AUTO) 0.1 % (0-6); HEMATOCRIT 40.9 % (36.0-47.0); HEMOGLOBIN 14.9 g/dL (12.0-15.5); LYMPHOCYTES % (AUTO) 16.3 % (13-45); MEAN CORPUSCULAR HEMOGLOBIN 33.8 pg (27.0-33.4); MEAN CORPUSCULAR HGB CONC 36.3 g/dL (32.0-36.0); MONOCYTES % (AUTO) 7.1 % (3-13); PLATELET COUNT 286 10^3/uL (150-450); RED CELL DISTRIBUTION WIDTH 12.4 % (11.5-14.0); SEGMENTED NEUTROPHILS % (AUTO) 75.8 % (42-78); WHITE BLOOD COUNT 11.3 10^3/uL (4.0-10.5)
[2019-04-29 12:22] LABS: MEAN CORPUSCULAR VOLUME 93 fl (80-97)
--- NOTE | 2019-04-29 13:08 | ER Document Report ---
ED General - General Chief Complaint: Abdominal Pain Stated Complaint: STOMACH PAIN Time Seen by Provider: 04/29/19 09:14 Primary Care Provider: BERNICE MERCHANT DO [Primary Care Provider] - Follow up as needed Mode of Arrival: Wheelchair TRAVEL OUTSIDE OF THE [place] IN LAST 30 DAYS: No - HPI Notes: 53 year old female to the ED with C/O chronic abdominal pain that has been ongoing for several months as well as NV. She also reports dizziness, blurry vision. She states that she finds that she has nocturnal polydipsia and often will be drinking several bottle mena through the night. States that she only uses ETOH occasionally. Admit to use [place] to try to help control her pain, but it is not working. States she has been seeing her PCP Dr. Merchant for this and had a negative CT scan two weeks ago. States that she feels like she is getting worse. Reports subjective fevers but has not measured one. - Related Data Allergies/Adverse Reactions: codeine [Codeine] Allergy (Verified 08/17/18 13:17) Past Medical History - General Information source: Patient, Relative - Social History Smoking Status: Current Every Day Smoker Frequency of alcohol use: Social Drug Abuse: None Family History: COPD, Hypertension Patient has suicidal ideation: No Patient has homicidal ideation: No - Past Medical History Cardiac Medical History: Reports: Hx Hypertension - pt reports does not take medication regularly Denies: Hx Atrial Fibrillation, Hx Congestive Heart Failure, Hx Coronary Artery Disease, Hx DVT, Hx Pulmonary Embolism Pulmonary Medical History: Reports: Hx Asthma, Hx COPD Neurological Medical History: Denies: Hx Cerebrovascular Accident, Hx Migraine Renal/ Medical History: Denies: Hx Peritoneal Dialysis GI Medical History: Denies: Hx Cirrhosis Musculoskeletal Medical History: Reports Hx Arthritis Psychiatric Medical History: Reports: Hx Anxiety, Hx Depression Past Surgical History: Reports: Hx Appendectomy, Hx Orthopedic Surgery - left oulder - Immunizations Hx Diphtheria, Pertussis, Tetanus Vaccination: No Review of Systems - Review of Systems Constitutional: Fever, Malaise, Weakness. denies: Chills EENT: No symptoms reported, Blurred vision Cardiovascular: No symptoms reported, Dizziness. denies: Chest pain, Palpitations, Orthopnea, Lightheaded Respiratory: Cough, Short of breath Gastrointestinal: Abdominal pain, Nausea, Vomiting. denies: Diarrhea Genitourinary: No symptoms reported Musculoskeletal: No symptoms reported Skin: No symptoms reported Hematologic/Lymphatic: No symptoms reported Neurological/Psychological: Headaches -: Yes All other systems reviewed and negative Physical Exam - Vital signs Vitals: Temp Pulse Resp BP Pulse Ox 97.7 F 81 16 158/91 H 100 04/29/19 09:10 04/29/19 09:10 04/29/19 09:10 04/29/19 09:10 04/29/19 09:10 Interpretation: Hypertensive - General General appearance: Other - Chronically ill appearing. In distress: None - HEENT Head: Normocephalic, Atraumatic Eyes: Normal Pupils: PERRL - Respiratory Respiratory status: No respiratory distress Chest status: Nontender Breath sounds: Normal Chest palpation: Normal - Cardiovascular Rhythm: Regular Heart sounds: Normal auscultation Murmur: No - Abdominal Inspection: Obese Distension: No distension Bowel sounds: Normal Tenderness: Tender, Other - + TTP over the RUQ of the abdomen without no Mu rphy's sign. Negative McBuryney' Organomegaly: No organomegaly - Back Back: Normal, Nontender - Extremities General upper extremity: Normal inspection, Nontender, Normal color, Normal ROM, Normal temperature General lower extremity: Normal inspection, Nontender, Normal color, Normal ROM, Normal temperature, Normal weight bearing. No: Raquel's sign - Neurological Neuro grossly intact: Yes Cognition: Normal Orientation: AAOx4 [place] Coma Scale Eye Opening: Spontaneous [place] Coma Scale Verbal: Oriented [place] Coma Scale Motor: Obeys Commands [place] Coma Scale Total: 15 Speech: Normal Motor strength normal: LUE, RUE, LLE, RLE Sensory: Normal - Psychological Associated symptoms: Normal mood, Anxious - Skin Skin Temperature: Warm Skin Moisture: Dry Skin Color: Normal Course - Vital Signs Vital signs: Temp Pulse Resp BP Pulse Ox 98.1 F 62 16 119/71 98 04/29/19 13:13 04/29/19 13:13 04/29/19 13:13 04/29/19 13:13 04/29/19 13:13 - Laboratory Result Diagrams: 04/29/19 11:35 04/29/19 09:50 Laboratory results interpreted by me: 04/29/19 04/29/19 04/29/19 09:50 11:35 11:35 WBC 11.3 H MCH 33.8 H MCHC 36.3 H Absolute Neutrophils 8.6 H Sodium 116.0 L* Chloride 74 L Glucose 127 H Calcium 10.5 H Total Bilirubin 1.9 H AST 39 H Total Protein 8.4 H Albumin 5.2 H Urine Glucose (UA) 50 H - EKG Interpretation by Me EKG shows normal: Sinus rhythm Rate: Normal - 62 When compared to previous EKG there are: No significant change Additional EKG results interpreted by me: 04/29/19 13:25 No STEMI, Prolonged QT. no ST changes. Unchanged from prior. - Transfer of Care Notes: 04/29/[address] Dennis, ER attending. We will await the rest of the blood work and RUQ US, however given her severe hyponatremia will plan for admission. Noted US reading. Call and spoke to the hospitalist team. [facility] Shonda Kate accepts the patient. She is aware of the lab work -- most importantly to the sodium level. She will come and see the patient. Impression: Hyponatremia. Admitted to the hospitalist service for further management. Discharge - Discharge Clinical Impression: Hyponatremia, Abdominal pain, Nausea & vomiting Disposition: ADMITTED INPATIENT Admitting Provider: Shonda Bee, Hospitalist [facility] Unit Admitted: Telemetry Referrals: BERNICE MERCHANT DO [Primary Care Provider] - Follow up as needed
[2019-04-29] MEDS ORDERED: NORMAL SALINE 1000 ML 1,000 ML IV PRN (14:04)
[2019-04-29] MEDS ORDERED: ONDANSETRON 4 MG TAB.RAPDIS PO PRN (14:04)
[2019-04-29] MEDS ORDERED: MORPHINE SULFATE 10 MG/ML INJ IV PRN (14:10)
[2019-04-29] MEDS ORDERED: TRAMADOL HCL 50 MG TABLET PO PRN (15:59)
[2019-04-29] MEDS: NORMAL SALINE 1000 ML 1,000 ML IV PRN ×2 (16:10→21:30)
--- NOTE | 2019-04-29 16:21 | PDOC H&P ---
History of Present Illness Admission Date/PCP: 04/29/19 13:17 BERNICE MERCHANT DO Patient complains of: Nausea, vomiting and diarrhea History of Present Illness: ALTAF GRAY is a 53 year old female with a PMH of HTN. She presents to [facility] emergency department for a 1 month history of nausea, vomiting and diarrhea. Patient endorses periumbilical abdominal pain, worse in the RLQ. She states she has been experiencing intermittent pain and N/V/D for the last month. Patient sees Dr. Merchant, she states that she saw him in the office approximately 2 weeks ago, he performed lab work and a CT scan, which was normal. Patient states that her symptoms seem to be worse in the morning. States that she was in so much pain that she took a single Vicodin tablet yesterday. Upon presentation to the emergency department, vital signs are relatively normal. EKG shows NSR, no evidence of ischemia or infarction. Laboratory studies indicative of hyponatremia (NA 116) and elevated GGT (169). All other laboratory studies including CBC, lipase and UA are WNL. Abdominal ultrasound WNL, pancreas obscured by gas pattern but not concerning given the normal lipase level. Upon assessment, patient is resting in bed. She appears in mild distress, she states she is in a moderate amount of RLQ abdominal pain. LCTA. S1-S2. No evidence of peripheral edema. Abdomen is soft, tender to palpation, nondistended. Of note, story of admissions related to alcohol or opioid use. Presenting symptoms are suspicious of opioid withdrawal versus EtOH withdrawal, or both. No plans for additional imaging at this time. Plan to admit patient to hospitalist service for hyponatremia and intractable abdominal pain. Past Medical History Cardiac Medical History: Reports: Hypertension - pt reports does not take medication regularly Denies: Atrial Fibrillation, Congestive Heart Failure, Coronary Artery Disease, DVT, Pulmonary Embolism Pulmonary Medical History: Reports: Asthma, Chronic Obstructive Pulmonary Disease (COPD) Neurological Medical History: Denies: Migraine GI Medical History: Denies: Cirrhosis Musculoskeltal Medical History: Reports: Arthritis Psychiatric Medical History: Reports: Depression Past Surgical History Past Surgical History: Reports: Appendectomy, Orthopedic Surgery - left shoulder Social History Information Source: Patient Lives with: Spouse/Significant other Smoking Status: Current Every Day Smoker Cigarettes Packs Per Day: 1 Number of Years Smokin Frequency of Alcohol Use: Occasional Hx Recreational Drug Use: No Drugs: None Hx Prescription Drug Abuse: No - Advance Directive Resuscitation Status: Full Code Family History Family History: COPD, Hypertension Parental Family History Reviewed: Yes Children Family History Reviewed: Yes Sibling(s) Family History Reviewed.: Yes Medication/Allergy Home Medications: Folic Acid [Folvite 1 mg Tablet] 1 mg PO DAILY 04/29/19 Lisinopril [Zestril] 40 mg PO DAILY 04/29/19 Lisinopril/Hydrochlorothiazide [Zestoretic 20-12.5 mg Tablet] 1 tab PO BID 04/29/19 Multivit-Minerals/Folic Acid [One Daily Womens 50 Plus Tab] 0.4 mg PO DAILY 04/29/19 Trazodone HCl 100 mg PO QHS 04/29/19 Allergies/Adverse Reactions: codeine [Codeine] Allergy (Verified 08/17/18 13:17) Review of Systems Constitutional: PRESENT: anorexia Eyes: ABSENT: visual disturbances Ears: ABSENT: hearing changes Nose, Mouth, and Throat: PRESENT: sore throat - Stemming from vomiting Cardiovascular: ABSENT: chest pain, dyspnea on exertion, edema, orthropnea, palpitations Respiratory: ABSENT: cough, hemoptysis Gastrointestinal: PRESENT: abdominal pain, diarrhea, nausea, vomiting Genitourinary: ABSENT: dysuria, hematuria Musculoskeletal: ABSENT: joint swelling Integumentary: ABSENT: rash, wounds Neurological: PRESENT: weakness Psychiatric: PRESENT: anxiety Endocrine: ABSENT: cold intolerance, heat intolerance, polydipsia, polyuria Hematologic/Lymphatic: ABSENT: easy bleeding, easy bruising Allergic/Immunologic: ABSENT: seasonal rhinorrhea Physical Exam Vital Signs: Temp Pulse Resp BP Pulse Ox 98.1 F 62 16 119/71 98 04/29/19 13:13 04/29/19 13:13 04/29/19 13:13 04/29/19 13:13 04/29/19 13:13 Intake & Output 04/28/19 04/29/19 04/30/19 06:59 06:59 06:59 Intake Total 1000 Balance 1000 Weight 71.4 kg General appearance: PRESENT: no acute distress, well-developed, well-nourished Head exam: PRESENT: atraumatic, normocephalic Eye exam: PRESENT: conjunctiva pink, EOMI, PERRLA. ABSENT: scleral icterus Ear exam: PRESENT: normal external ear exam Mouth exam: PRESENT: moist, tongue midline Neck exam: ABSENT: carotid bruit, JVD, lymphadenopathy, thyromegaly Respiratory exam: PRESENT: clear to auscultation vivian, symmetrical, unlabored. ABSENT: rales, rhonchi, wheezes Cardiovascular exam: PRESENT: RRR. ABSENT: diastolic murmur, rubs, systolic murmur Pulses: PRESENT: normal radial pulses, normal dorsalis pedis pul Vascular exam: PRESENT: normal capillary refill GI/Abdominal exam: PRESENT: normal bowel sounds, soft. ABSENT: distended, guarding, mass, organolmegaly, rebound, tenderness Rectal exam: PRESENT: deferred Extremities exam: PRESENT: full ROM. ABSENT: calf tenderness, clubbing, pedal edema Musculoskeletal exam: PRESENT: ambulatory, full ROM Neurological exam: PRESENT: alert, awake, oriented to person, oriented to place, oriented to time, oriented to situation Psychiatric exam: PRESENT: appropriate affect, normal mood Skin exam: PRESENT: dry, intact, warm. ABSENT: cyanosis, rash Results Laboratory Results: 04/29/19 11:35 04/29/19 09:50 04/29/19 04/29/19 04/29/19 09:50 09:50 09:50 WBC Cancelled RBC Cancelled Hgb Cancelled Hct Cancelled MCV Cancelled MCH Cancelled MCHC Cancelled RDW Cancelled Plt Count Cancelled Seg Neutrophils % Cancelled Lymphocytes % Cancelled Monocytes % Cancelled Eosinophils % Cancelled Basophils % Cancelled Absolute Neutrophils Cancelled Absolute Lymphocytes Cancelled Absolute Monocytes Cancelled Absolute Eosinophils Cancelled Absolute Basophils Cancelled Sodium 116.0 L* Potassium 3.6 Chloride 74 L Carbon Dioxide 24 Anion Gap 18 BUN 11 Creatinine 0.87 Est GFR ( Amer) > 60 Est GFR (Non-Af Amer) > 60 Glucose 127 H Calcium 10.5 H Total Bilirubin 1.9 H GGT 169 H AST 39 H ALT 30 Alkaline Phosphatase 120 Total Protein 8.4 H Albumin 5.2 H Amylase 59 Lipase 130.6 Urine Color Urine Appearance Urine pH Ur Specific [place] Urine Protein Urine Glucose (UA) Urine Ketones Urine Blood Urine Nitrite Ur Leukocyte Esterase Urine WBC (Auto) Urine RBC (Auto) 04/29/19 04/29/19 11:35 11:35 WBC 11.3 H RBC 4.40 Hgb 14.9 Hct 40.9 MCV 93 D MCH 33.8 H MCHC 36.3 H RDW 12.4 Plt Count 286 Seg Neutrophils % 75.8 Lymphocytes % 16.3 Monocytes % 7.1 Eosinophils % 0.1 Basophils % 0.7 Absolute Neutrophils 8.6 H Absolute Lymphocytes 1.8 Absolute Monocytes 0.8 Absolute Eosinophils 0.0 Absolute Basophils 0.1 Sodium Potassium Chloride Carbon Dioxide Anion Gap BUN Creatinine Est GFR ( Amer) Est GFR (Non-Af Amer) Glucose Calcium Total Bilirubin GGT AST ALT Alkaline Phosphatase Total Protein Albumin Amylase Lipase Urine Color CHANTELL Urine Appearance CLOUDY Urine pH 8.0 Ur Specific [place] 1.008 Urine Protein NEGATIVE Urine Glucose (UA) 50 H Urine Ketones NEGATIVE Urine Blood NEGATIVE Urine Nitrite NEGATIVE Ur Leukocyte Esterase NEGATIVE Urine WBC (Auto) 3 Urine RBC (Auto) 0 Impressions: Abdomen Ultrasound 04/29/19 10:05 IMPRESSION: NORMAL RIGHT UPPER QUADRANT ULTRASOUND. PANCREAS PARTIALLY OBSCURED BY GAS. Status: Imported from PACS Assessment and Plan - Diagnosis (1) Opiate dependence Is this a current diagnosis for this admission?: Yes Plan: Patient has a history of opiate dependence Was noted to be asking for Dilaudid during previous admissions without evidence of it being prescribed to her Patient does not endorse taking chronic pain medication but states she "took one vicodin yesterday" UTOX positive for opiates (2) Nausea & vomiting Is this a current diagnosis for this admission?: Yes Plan: Unclear etiology but likely secondary to #[address] done by PCP 6/ weeks ago was normal The patient has a history of heavy ETOH use and opioid withdrawal, UTOX positive for opioids but patient states she only took 1 vicodin yesterday, additionally states she only drink 2 alcoholic beverages per day Serum alcohol negative Liver enzymes acceptable GGT is elevated to 169 It is possible that the patient is experiencing substance withdrawal Will provide supportive treatment for symptoms (3) Hyponatremia Is this a current diagnosis for this admission?: Yes Plan: Likely secondary to #2 Stemming from substance withdrawal (etoh vs opioids or both) 1L IVF bolus in ED Continue NS @ 200mL/hr q12 chemistries until sodium level normalizes (4) Hypertension Qualifiers: Hypertension type: essential hypertension Qualified Code(s): I10 - Essential (primary) hypertension Is this a current diagnosis for this admission?: Yes Plan: PMH HTN Currently well controlled Continue home dose lisinopril Hydralazine IV PRN SBP>170 (5) Diarrhea Qualifiers: Diarrhea type: unspecified type Qualified Code(s): R19.7 - Diarrhea, unspecified Is this a current diagnosis for this admission?: Yes Plan: Unclear etiology Will order stool studies Not likely to be CDIFF, patient denies recent exposure to antibiotics - Time Time Spent with patient: 15-24 minutes Medications reviewed and adjusted accordingly: Yes Anticipated discharge: Home Within: within 72 hours - Inpatient Certification Based on my medical assessment, after consideration of the patient's comorbidities, presenting symptoms, or acuity I expect that the services needed warrant INPATIENT care.: Yes I certify that my determination is in accordance with my understanding of Medicare's requirements for reasonable and necessary INPATIENT services [42 CFR 412.3e].: Yes Medical Necessity: Need For Continuous Telemetry Monitoring, Need for IV Antibiotics, Risk of Complication if Not Cared For in Hospital
[2019-04-29] MEDS ORDERED: LISINOPRIL 10 MG TABLET PO SCH (18:00)
[2019-04-29] MEDS: PANTOPRAZOLE SODIUM 40 MG VIAL IV SCH (21:08)
[2019-04-29] MEDS: TRAZODONE HCL 50 MG TABLET PO SCH (21:08)
--- NOTE | 2019-04-29 22:33 | EKG REPORT ---
SEVERITY:- BORDERLINE ECG - SINUS RHYTHM BORDERLINE PROLONGED QT INTERVAL : Confirmed by: Harman Jimenez 29-Apr-2019 22:32:32
[2019-04-30] MEDS ORDERED: RINGERS SOLUTION,LACTATED 1,000 ML IV PRN (00:01)
[2019-04-30] MEDS ORDERED: RINGERS SOLUTION,LACTATED 1,000 ML IV ONE (00:15)
[2019-04-30] MEDS: NORMAL SALINE 1000 ML 1,000 ML IV PRN ×4 (05:51→21:10)
[2019-04-30 06:57] LABS: ABSOLUTE EOSINOPHILS # (AUTO) 0.1 10^3/uL (0.0-0.6); ABSOLUTE LYMPHOCYTES (AUTO) 2.6 10^3/uL (0.5-4.7); ABSOLUTE MONOCYTES (AUTO) 0.6 10^3/uL (0.1-1.4); BASOPHILS % (AUTO) 0.6 % (0-2); EOSINOPHILS % (AUTO) 1.1 % (0-6); HEMATOCRIT 38.2 % (36.0-47.0); HEMOGLOBIN 13.8 g/dL (12.0-15.5); LYMPHOCYTES % (AUTO) 41.8 % (13-45); MEAN CORPUSCULAR HEMOGLOBIN 34.2 pg (27.0-33.4); MEAN CORPUSCULAR HGB CONC 36.1 g/dL (32.0-36.0); MEAN CORPUSCULAR VOLUME 95 fl (80-97); PLATELET COUNT 239 10^3/uL (150-450); RED BLOOD COUNT 4.03 10^6/uL (3.72-5.28); RED CELL DISTRIBUTION WIDTH 12.5 % (11.5-14.0); SEGMENTED NEUTROPHILS % (AUTO) 47.5 % (42-78); TOTAL CELLS COUNTED % (AUTO) 100 %; WHITE BLOOD COUNT 6.2 10^3/uL (4.0-10.5)
[2019-04-30 07:29] LABS: ALANINE AMINOTRANSFERASE 24 U/L (9-52); ALBUMIN 3.1 g/dL (3.5-5.0); ALKALINE PHOSPHATASE 65 U/L (38-126); ANION GAP 8 (5-19); ASPARTATE AMINO TRANSFERASE 26 U/L (14-36); BILIRUBIN,DIRECT 0.2 mg/dL (0.0-0.4); BILIRUBIN,TOTAL 1.2 mg/dL (0.2-1.3); BLOOD UREA NITROGEN 7 mg/dL (7-20); CALCIUM 8.1 mg/dL (8.4-10.2); CARBON DIOXIDE 22 mmol/L (22-30); CHLORIDE 95 mmol/L (98-107); GLUCOSE 88 mg/dL (75-110); LIPASE 74.7 U/L (23-300); PHOSPHORUS 3.7 mg/dL (2.5-4.5); SODIUM 124.8 mmol/L (137-145); TOTAL PROTEIN 5.4 g/dL (6.3-8.2)
[2019-04-30] MEDS: FOLIC ACID 1 MG TABLET PO SCH (09:09)
[2019-04-30] MEDS: PRENATAL VITAMIN W DHA CAPSULE PO SCH (09:09)
[2019-04-30] MEDS: PANTOPRAZOLE SODIUM 40 MG VIAL IV SCH ×2 (09:11→21:09)
[2019-04-30] MEDS: ENOXAPARIN SODIUM INJ 40 MG/0.4 ML DISP.SYRIN SUBCUT SCH (09:11)
[2019-04-30] MEDS ORDERED: MULTIVIT MINERALS PO SCH (10:00)
[2019-04-30] MEDS ORDERED: [UNRECOGNIZED DRUG - OTHER] PO SCH (10:00)
[2019-04-30] MEDS ORDERED: FOLIC ACID PO SCH (10:00)
[2019-04-30] MEDS ORDERED: (PENDING PHARMACY ID) (Lisinopril [Zestril] 40 MG) PO SCH (10:00)
[2019-04-30] MEDS: NICOTINE 14 MG/24 HR PATCH.TD24 TD SCH (13:29)
--- NOTE | 2019-04-30 14:13 | RADIOLOGY REPORT (SQ) ---
EXAM DESCRIPTION: KUB/ABDOMEN (SINGLE VIEW) COMPLETED DATE/TIME: 04/30/2019 1:32 pm REASON FOR STUDY: abdominal pain COMPARISON: 02/28/2018 NUMBER OF VIEWS: One view. TECHNIQUE: Supine radiographic image of the abdomen acquired. LIMITATIONS: None. FINDINGS: BOWEL GAS PATTERN: Normal bowel gas pattern. No dilated loops. CALCIFICATIONS: No suspicious calcifications. SOFT TISSUES: No gross mass or suggestion of organomegaly. HARDWARE: None in the abdomen. BONES: No acute fracture. No worrisome bone lesions. OTHER: No other significant finding. IMPRESSION: NO RADIOGRAPHIC EVIDENCE FOR ACUTE ABDOMINAL DISEASE. TECHNICAL DOCUMENTATION: JOB ID: [id number] [employer]- All Rights Reserved Reading location - IP/workstation name: [email or web address]
--- NOTE | 2019-04-30 16:57 | PDOC PROGRESS REPORT ---
Subjective Progress Note for:: 04/30/19 Subjective:: ALTAF GRAY is a 53 year old female with a PMH of HTN. She presents to [facility] emergency department for a 1 month history of nausea, vomiting and diarrhea. She was admitted to the hospitalist for hyponatremia. The patient was seen this morning on rounds. She is resting comfortably in a chair. The patient endorses RLQ abdominal pain. States she has a small bowel movement this morning. States she is hungry, asking for food. Sodium improved today, continue IVF. Leukocytosis resolved, remained afebrile - gastroenteritis unlikely. Will obtain KUB to look for signs of trapped gas or constipation. Patient had a normal CT abdomen 04/16/2019 and her symptoms have not changed since that time. Anticipate discharge in 24-48 hrs Reason For Visit: HYPONATREMIA Physical Exam Vital Signs: Temp Pulse Resp BP Pulse Ox 98.7 F 68 17 143/73 H 100 04/30/19 12:00 04/30/19 12:00 04/30/19 12:00 04/30/19 12:00 04/30/19 12:00 Intake & Output 04/29/19 04/30/19 05/01/19 06:59 06:59 06:59 Intake Total 5260 1640 Balance 5260 1640 Weight 74.5 kg General appearance: PRESENT: no acute distress, well-developed, well-nourished Head exam: PRESENT: atraumatic, normocephalic Eye exam: PRESENT: conjunctiva pink, EOMI, PERRLA. ABSENT: scleral icterus Ear exam: PRESENT: normal external ear exam Mouth exam: PRESENT: moist, tongue midline Neck exam: ABSENT: carotid bruit, JVD, lymphadenopathy, thyromegaly Respiratory exam: PRESENT: clear to auscultation vivian. ABSENT: rales, rhonchi, wheezes Cardiovascular exam: PRESENT: RRR. ABSENT: diastolic murmur, rubs, systolic murmur Pulses: PRESENT: normal radial pulses, normal dorsalis pedis pul Vascular exam: PRESENT: normal capillary refill GI/Abdominal exam: PRESENT: normal bowel sounds, soft, tenderness - RLQ ten derness. ABSENT: distended, guarding, mass, organolmegaly, rebound Rectal exam: PRESENT: deferred Extremities exam: PRESENT: full ROM. ABSENT: calf tenderness, clubbing, pedal edema Neurological exam: PRESENT: alert, awake, oriented to person, oriented to place, oriented to time, oriented to situation Psychiatric exam: PRESENT: appropriate affect, normal mood. ABSENT: homicidal ideation, suicidal ideation Skin exam: PRESENT: dry, intact, warm. ABSENT: cyanosis, rash Results Laboratory Results: 04/30/19 06:03 04/30/19 06:03 04/30/19 04/30/19 04/30/19 06:03 06:03 06:03 WBC 6.2 RBC 4.03 Hgb 13.8 Hct 38.2 MCV 95 MCH 34.2 H MCHC 36.1 H RDW 12.5 Plt Count 239 Seg Neutrophils % 47.5 Lymphocytes % 41.8 Monocytes % 9.0 Eosinophils % 1.1 Basophils % 0.6 Absolute Neutrophils 3.0 Absolute Lymphocytes 2.6 Absolute Monocytes 0.6 Absolute Eosinophils 0.1 Absolute Basophils 0.0 Sodium 124.8 L Potassium 4.0 Chloride 95 L Carbon Dioxide 22 Anion Gap 8 BUN 7 Creatinine 0.79 Est GFR ( Amer) > 60 Est GFR (Non-Af Amer) > 60 Glucose 88 Calcium 8.1 L Phosphorus 3.7 Magnesium 1.8 Total Bilirubin 1.2 AST 26 ALT 24 Alkaline Phosphatase 65 Total Protein 5.4 L Albumin 3.1 L Lipase 74.7 TSH 0.47 04/30/19 06:03 NT-Pro-B Natriuret Pep 192 Impressions: Abdomen Ultrasound 04/29/19 10:05 IMPRESSION: NORMAL RIGHT UPPER QUADRANT ULTRASOUND. PANCREAS PARTIALLY OBS CURED BY GAS. KUB X-Ray 04/30/19 12:51 IMPRESSION: NO RADIOGRAPHIC EVIDENCE FOR ACUTE ABDOMINAL DISEASE. Status: Imported from PACS Assessment and Plan - Diagnosis (1) Nausea & vomiting Is this a current diagnosis for this admission?: Yes Plan: Unclear etiology but likely secondary to #[address] US [address] done by PCP 04/16 weeks ago was normal The patient has a history of heavy ETOH use and opioid withdrawal, UTOX positive for opioids but patient states she only took 1 vicodin yesterday, additionally states she only drink 2 alcoholic beverages per day Serum alcohol negative Liver enzymes acceptable GGT is elevated to 169 It is possible that the patient is experiencing substance withdrawal Will provide supportive treatment for symptoms (2) Hyponatremia Is this a current diagnosis for this admission?: Yes Plan: Likely secondary to #2 Stemming from substance withdrawal (etoh vs opioids or both) 1L IVF bolus in ED Continue NS @ 200mL/hr q12 chemistries until sodium level normalizes (3) Hypertension Qualifiers: Hypertension type: essential hypertension Qualified Code(s): I10 - Essential (primary) hypertension Is this a current diagnosis for this admission?: Yes Plan: PMH HTN Currently well controlled Continue home dose lisinopril Hydralazine IV PRN SBP>170 (4) Diarrhea Qualifiers: Diarrhea type: unspecified type Qualified Code(s): R19.7 - Diarrhea, unspecified Is this a current diagnosis for this admission?: Yes Plan: Unclear etiology Patient denies diarrhea today, states she had 'hard stool' Yesterday she told me she had diarrhea Unlikely that she became constipated in 24 hours Cancel stool studies (5) Opiate dependence Is this a current diagnosis for this admission?: Yes Plan: Patient has a history of opiate dependence Was noted to be asking for Dilaudid during previous admissions without evidence of it being prescribed to her Patient does not endorse taking chronic pain medication but states she "took one vicodin" prior to admission UTOX positive for opiates - Time Time Spent with patient: 15-24 minutes Medications reviewed and adjusted accordingly: Yes Anticipated discharge: Home Within: within 24 hours - Inpatient Certification Based on my medical assessment, after consideration of the patient's comorbidities, presenting symptoms, or acuity I expect that the services needed warrant INPATIENT care.: Yes I certify that my determination is in accordance with my understanding of Medicare's requirements for reasonable and necessary INPATIENT services [42 CFR 412.3e].: Yes Medical Necessity: Need For IV Fluids, Risk of Complication if Not Cared For in Hospital
[2019-04-30] MEDS: ACETAMINOPHEN 325 MG TABLET PO PRN (19:50)
[2019-04-30] MEDS: TRAZODONE HCL 50 MG TABLET PO SCH (21:10)
[2019-04-30] MEDS ORDERED: LISINOPRIL 10 MG TABLET PO SCH (22:00)
[2019-05-01] MEDS: NORMAL SALINE 1000 ML 1,000 ML IV PRN ×2 (02:30→07:59)
[2019-05-01 05:10] LABS: HEMATOCRIT 35.3 % (36.0-47.0); HEMOGLOBIN 12.5 g/dL (12.0-15.5); MEAN CORPUSCULAR HEMOGLOBIN 34.5 pg (27.0-33.4); MEAN CORPUSCULAR HGB CONC 35.4 g/dL (32.0-36.0); MEAN CORPUSCULAR VOLUME 97 fl (80-97); PLATELET COUNT 222 10^3/uL (150-450); RED BLOOD COUNT 3.62 10^6/uL (3.72-5.28); RED CELL DISTRIBUTION WIDTH 12.6 % (11.5-14.0); WHITE BLOOD COUNT 5.6 10^3/uL (4.0-10.5)
[2019-05-01 05:48] LABS: ALANINE AMINOTRANSFERASE 23 U/L (9-52); ALKALINE PHOSPHATASE 71 U/L (38-126); ANION GAP 8 (5-19); ASPARTATE AMINO TRANSFERASE 27 U/L (14-36); BILIRUBIN,DIRECT 0.2 mg/dL (0.0-0.4); BILIRUBIN,TOTAL 0.3 mg/dL (0.2-1.3); BLOOD UREA NITROGEN 6 mg/dL (7-20); CALCIUM 7.5 mg/dL (8.4-10.2); CARBON DIOXIDE 20 mmol/L (22-30); CHLORIDE 108 mmol/L (98-107); GLUCOSE 84 mg/dL (75-110); POTASSIUM 4.1 mmol/L (3.6-5.0); TOTAL PROTEIN 5.2 g/dL (6.3-8.2)
[2019-05-01] MEDS: ACETAMINOPHEN 325 MG TABLET PO PRN (05:56)
[2019-05-01] MEDS: PRENATAL VITAMIN W DHA CAPSULE PO SCH (09:26)
[2019-05-01] MEDS: PANTOPRAZOLE SODIUM 40 MG VIAL IV SCH (09:26)
[2019-05-01] MEDS: NICOTINE 14 MG/24 HR PATCH.TD24 TD SCH (09:26)
[2019-05-01] MEDS: FOLIC ACID 1 MG TABLET PO SCH (09:26)
[2019-05-01] MEDS: ENOXAPARIN SODIUM INJ 40 MG/0.4 ML DISP.SYRIN SUBCUT SCH (09:28)
[2019-05-01 12:50] VITALS: BP 143/73
--- NOTE | 2019-05-01 18:53 | PDOC DISCHARGE SUMMARY ---
General - Admit/Disc Date/PCP Admission Date/Primary Care Provider: 04/29/19 13:17 BERNICE MERCHANT, DO Discharge Date: 05/01/19 - Discharge Diagnosis (1) Diarrhea Is this a current diagnosis for this admission?: Yes Summary: Resolved. (2) Hypertension Is this a current diagnosis for this admission?: Yes Summary: PMH HTN; currently well controlled Advised lifestyle modifications/dietary discretion. Continue home dose lisinopril Have recommended discontinuing HCTZ secondary to recurrent hyponatremia. (3) Hyponatremia Is this a current diagnosis for this admission?: Yes Summary: Improved; Na 116-> 124.8-> 136 Likely secondary to opiate/EtOH abuse and withdrawal resulting in N/V/D. Patient was admitted to the medical floor and provided IV fluids. She is now tolerating regular diet with adequate p.o. intake. I have advised patient to hold her hydrochlorothiazide. Also discussed that her Trazodone may be an additional cause of her hyponatremia. Recommend she follow-up with primary care provider within 1 week and have repeat chemistry done at that time. (4) Nausea & vomiting Is this a current diagnosis for this admission?: Yes Summary: Resolved; patient now tolerating a regular diet with adequate p.o. intake. Abdominal US negative CT done by PCP 04/16 weeks ago was normal Serum alcohol negative Liver enzymes acceptable KUB is benign. (5) Opiate dependence Is this a current diagnosis for this admission?: Yes Summary: Patient has a history of opiate dependence UTOX positive for opiates - Additional Information Resuscitation Status: Full Code Discharge Diet: Cardiac Discharge Activity: Activity As Tolerated, Balance Activity w/Rest, Slowly Increase Activity Prescriptions: Lisinopril [Prinivil 10 mg Tablet] 20 mg PO QHS #30 tablet Nicotine [Nicoderm 14 mg/24 Hr Transdermal Patch] 1 each TD DAILY #30 patch.td24 Ondansetron [Zofran Odt 4 mg Tablet] 8 mg PO Q6HP PRN #12 tab.rapdis PRN Reason: Home Medications: Folic Acid [Folvite 1 mg Tablet] 1 mg PO DAILY 04/29/19 Multivit-Minerals/Folic Acid [One Daily Womens 50 Plus Tab] 0.4 mg PO DAILY 04/29/19 Trazodone HCl 100 mg PO QHS 04/29/19 Acetaminophen [Tylenol 325 mg Tablet] 975 mg PO Q6HP PRN tablet 05/01/19 Lisinopril [Prinivil 10 mg Tablet] 20 mg PO QHS #30 tablet 05/01/19 Nicotine [Nicoderm 14 mg/24 Hr Transdermal Patch] 1 each TD DAILY #30 patch.td24 05/01/19 Ondansetron [Zofran Odt 4 mg Tablet] 8 mg PO Q6HP PRN #12 tab.rapdis 05/01/19 History of Present Illness History of Present Illness: Per H&P by JOAQUINA Gomez-C: ALTAF GRAY is a 53 year old female with a PMH of HTN. She presents to [facility] emergency department for a 1 month history of nausea, vomiting and diarrhea. Patient endorses periumbilical abdominal pain, worse in the RLQ. She states she has been experiencing intermittent pain and N/V/D for the last month. Patient sees Dr. Merchant, she states that she saw him in the office approximately 2 weeks ago, he performed lab work and a CT scan, which was normal. Patient states that her symptoms seem to be worse in the morning. States that she was in so much pain that she took a single Vicodin tablet yesterday. Upon presentation to the emergency department, vital signs are relatively normal. EKG shows NSR, no evidence of ischemia or infarction. Laboratory studies indicative of hyponatremia (NA 116) and elevated GGT (169). All other laboratory studies including CBC, lipase and UA are WNL. Abdominal ultrasound WNL, pancreas obscured by gas pattern but not concerning given the normal lipase level. Upon assessment, patient is resting in bed. She appears in mild distress, she states she is in a moderate amount of RLQ abdominal pain. LCTA. S1-S2. No evidence of peripheral edema. Abdomen is soft, tender to palpation, nondistended. Of note, story of admissions related to alcohol or opioid use. Presenting symptoms are suspicious of opioid withdrawal versus EtOH withdrawal, or both. No plans for additional imaging at this time. Plan to admit patient to hospitalist service for hyponatremia and intractable abdominal pain. Physical Exam Vital Signs: Temp Pulse Resp BP Pulse Ox 98.1 F 61 16 132/74 H 100 05/01/19 12:00 05/01/19 12:00 05/01/19 12:05/01/19 12:00 05/01/19 12:00 Intake & Output 04/30/19 05/01/19 05/02/19 06:59 06:59 06:59 Intake Total 5260 4935 1360 Balance 5260 4935 1360 Weight 74.5 kg 74.2 kg General appearance: PRESENT: no acute distress, disheveled, well-developed, well-nourished - Overweight Head exam: PRESENT: atraumatic, normocephalic Eye exam: PRESENT: conjunctiva pink, EOMI, PERRLA. ABSENT: scleral icterus Ear exam: PRESENT: normal external ear exam Mouth exam: PRESENT: moist, tongue midline Teeth exam: PRESENT: poor dentation Neck exam: ABSENT: carotid bruit, JVD, lymphadenopathy, thyromegaly Respiratory exam: PRESENT: clear to auscultation vivian. ABSENT: rales, rhonchi, wheezes Cardiovascular exam: PRESENT: RRR. ABSENT: diastolic murmur, rubs, systolic murmur Pulses: PRESENT: normal dorsalis pedis pul Vascular exam: PRESENT: normal capillary refill GI/Abdominal exam: PRESENT: normal bowel sounds, soft. ABSENT: distended, guarding, mass, organolmegaly, rebound, tenderness Rectal exam: PRESENT: deferred Extremities exam: PRESENT: full ROM. ABSENT: calf tenderness, clubbing, pedal edema Neurological exam: PRESENT: alert, awake, oriented to person, oriented to place, oriented to time, oriented to situation, CN II-XII grossly intact. ABSENT: motor sensory deficit Psychiatric exam: PRESENT: appropriate affect, normal mood. ABSENT: homicidal ideation, suicidal ideation Skin exam: PRESENT: dry, intact, warm. ABSENT: cyanosis, rash Results Laboratory Results: 05/01/19 04:37 05/01/19 04:37 05/01/19 05/01/19 04:37 04:37 WBC 5.6 RBC 3.62 L Hgb 12.5 Hct 35.3 L MCV 97 MCH 34.5 H MCHC 35.4 RDW 12.6 Plt Count 222 Sodium 136.0 L Potassium 4.1 Chloride 108 H Carbon Dioxide 20 L Anion Gap 8 BUN 6 L Creatinine 0.72 Est GFR ( Amer) > 60 Est GFR (Non-Af Amer) > 60 Glucose 84 Calcium 7.5 L Phosphorus 3.0 Magnesium 1.9 Total Bilirubin 0.3 AST 27 ALT 23 Alkaline Phosphatase 71 Total Protein 5.2 L Albumin 3.0 L 04/30/19 06:03 NT-Pro-B Natriuret Pep 192 Impressions: Abdomen Ultrasound 04/29/19 10:05 IMPRESSION: NORMAL RIGHT UPPER QUADRANT ULTRASOUND. PANCREAS PARTIALLY O BSCURED BY GAS. KUB X-Ray 04/30/19 12:51 IMPRESSION: NO RADIOGRAPHIC EVIDENCE FOR ACUTE ABDOMINAL DISEASE. Qualifiers - * PATIENT BEING DISCHARGED WITH ANY OF THE FOLLOWING DIAGNOSIS: No Acute Heart Failure - Is this a Heart Failure Patient?: No Plan Discharge Plan: Follow-up with primary care provider within 1 week. Recommend repeat BMP to check sodium at that visit. Discontinue hydrochlorothiazide. Take all other medications as prescribed. Return to the emergency department as needed for concerning symptoms. Time Spent: Greater than 30 Minutes
== END 2019-05-01 13:49 | disposition home or self-care (01) | DRG 641 ==
LOC: ER 09:03 → EH 13:17 → 4S 14:41
PROVIDERS: ADMIT Internal Medicine; ATTEND Internal Medicine
DX: E87.1 Hypo-osmolality and hyponatremia (principal); R10.9 Unspecified abdominal pain; R19.7 Diarrhea, unspecified; I10 Essential (primary) hypertension; J44.9 Chronic obstructive pulmonary disease, unspecified; F11.19 Opioid abuse with unspecified opioid-induced disorder; M19.90 Unspecified osteoarthritis, unspecified site; F41.8 Other specified anxiety disorders; F17.210 Nicotine dependence, cigarettes, uncomplicated; Z79.891 Long term (current) use of opiate analgesic
CPT/HCPCS: 36415; 74018; 76705; 80053; 80307; 81001; 81025; 82150; 82977; 83690; 83735; 83880; 84100; 84443; 85025; 85027; 93005; 93010; J1650; J2270; J2405; J3490; J7030; J7120; S0164

== ENCOUNTER → 2019-06-05 | Outpatient (CLI) | payer OTHER ==
[2019-06-05 13:54] LABS: ALBUMIN 5.2 g/dL (3.5-5.0); ALKALINE PHOSPHATASE 99 U/L (38-126); ANION GAP 16 (5-19); ASPARTATE AMINO TRANSFERASE 27 U/L (14-36); BILIRUBIN,DIRECT 0.3 mg/dL (0.0-0.4); BILIRUBIN,TOTAL 0.8 mg/dL (0.2-1.3); BLOOD UREA NITROGEN 8 mg/dL (7-20); CALCIUM 9.9 mg/dL (8.4-10.2); CARBON DIOXIDE 24 mmol/L (22-30); CHLORIDE 82 mmol/L (98-107); GLUCOSE 114 mg/dL (75-110); PHOSPHORUS 3.6 mg/dL (2.5-4.5); TOTAL PROTEIN 8.2 g/dL (6.3-8.2)
== END ==
LOC: CCC 12:11
DX: I10 Essential (primary) hypertension (principal); R63.4 Abnormal weight loss; E83.51 Hypocalcemia
CPT/HCPCS: 36415; 80048; 80076; 83036; 83735; 84100

== ENCOUNTER → 2019-06-11 | Outpatient (CLI) | payer OTHER ==
--- NOTE | 2019-06-11 13:03 | RADIOLOGY REPORT (SQ) ---
EXAM DESCRIPTION: BARIUM SWALLOW ESOPHAGUS COMPLETED DATE/TIME: 06/11/2019 9:52 am REASON FOR STUDY: HX OF FOOD IMPACTION,VOMITING K56.49 OTHER IMPACTION OF INTESTINE R11.10 VOMITIN G, UNSPECIFIED COMPARISON: None. TECHNIQUE: Under fluoroscopic guidance, patient ingested effervescent granules followed by thick and thin barium. Fluoroscopic spot images and routine radiographic images acquired and stored on PACS. 12 MM BARIUM TABLET GIVEN: Barium tablet passed easily through the esophagus into the stomach without delay. LIMITATIONS: None. FLUOROSCOPY TIME: FLUORO TIME: 2.2 minutes 6 images saved to PACS. FINDINGS: NEUROMUSCULAR COORDINATION OF SWALLOW: Normal. No aspiration. ESOPHAGEAL MOTILITY: Normal peristalsis. No esophageal spasm. ESOPHAGEAL MUCOSA: Normal mucosa without masses or ulceration. GASTRO-ESOPHAGEAL JUNCTION: Small hiatal hernia with Schatzki's ring present. No gastroesophageal re flux. NON-GI TRACT STRUCTURES: No significant finding. OTHER: No other significant finding. IMPRESSION: SMALL HIATAL HERNIA WITH SCHATZKI'S RING. OTHERWISE UNREMARKABLE STUDY. . RECOMMENDATION: NONE COMMENT: None Quality ID 145: Final reports for procedures using fluoroscopy that document radiation exposure isabell rito, or exposure time and number of fluorographic images (if radiation exposure indices are not avail able) TECHNICAL DOCUMENTATION: JOB ID: [id number] [employer]- All Rights Reserved Reading location - IP/workstation name: [email or web address]
== END ==
LOC: RAD 08:53
PROVIDERS: ATTEND Internal Medicine
DX: K56.49 Other impaction of intestine (principal); R11.10 Vomiting, unspecified
CPT/HCPCS: 74220

== ENCOUNTER → 2019-06-12 | Outpatient (CLI) | payer OTHER ==
[2019-06-12 12:11] LABS: ANION GAP 9 (5-19); BLOOD UREA NITROGEN 14 mg/dL (7-20); CALCIUM 9.3 mg/dL (8.4-10.2); CARBON DIOXIDE 25 mmol/L (22-30); CHLORIDE 101 mmol/L (98-107); GLUCOSE 90 mg/dL (75-110); POTASSIUM 4.4 mmol/L (3.6-5.0)
== END ==
LOC: CCC 11:18
DX: E87.6 Hypokalemia (principal); E87.1 Hypo-osmolality and hyponatremia
CPT/HCPCS: 36415; 80048

== ENCOUNTER → 2019-06-20 | Outpatient (CLI) | payer OTHER ==
--- NOTE | 2019-06-20 16:28 | WOMENS IMAGING REPORT ---
EXAM DESCRIPTION: ROMINA ANDRES BILATERAL SCREEN COMPLETED DATE/TIME: 06/20/2019 9:09 am REASON FOR STUDY: Z12.31 ENCOUNTER FOR SCREENING MAMMOGRAM FOR MALIGNANT NEOPLASM OF KGWVXAG52.31 E NCNTR SCREEN MAMMOGRAM FOR MALIGNANT NEOPLASM OF CRIS COMPARISON: None. EXAM PARAMETERS: Standard craniocaudal and mediolateral oblique views of each breast recorded using digital acquisition. Read with the assistance of CAD. .[facility] - [employer] In[employer] Version 9.2 LIMITATIONS: None. FINDINGS: RIGHT BREAST MASSES: No suspicious masses. CALCIFICATIONS: No new or suspicious calcifications. ARCHITECTURAL DISTORTION: None. DEVELOPING DENSITY: None. ASYMMETRY: None noted. OTHER: No other significant findings. LEFT BREAST MASSES: No suspicious masses. CALCIFICATIONS: No new or suspicious calcifications. ARCHITECTURAL DISTORTION: None. DEVELOPING DENSITY: None. ASYMMETRY: Upper inner quadrant about 4 cm deep to the nipple. OTHER: No other significant findings. IMPRESSION: Asymmetry left breast. 0 Incomplete: Needs Additional Imaging Evaluation and/or prior Mammograms for Comparison. BREAST DENSITY: c. The breasts are heterogeneously dense, which may obscure small masses. BIRAD: ASSESSMENT: 0 Incomplete: Needs Additional Imaging Evaluation and/or prior Mammograms for C omparison. RECOMMENDATION: RECOMMENDED FOLLOW-UP: Cone compression views and potential ultrasound left breast. The patient will be contacted for additional imaging. COMMENT: The patient has been notified of the results by letter per MQSA requirements. Additional no tification policies are in place for contacting patient with suspicious or incomplete findings. Quality ID #225: The [employer] recommends an annual screening mammogram for women aged 40 years or over. This facility utilizes a reminder system to ensure that all patients receive reminder letters, and/or direct phone calls for appointments. This includes reminders for routine scr eening mammograms, diagnostic mammograms, or other Breast Imaging Interventions when appropriate. Th is patient will be placed in the appropriate reminder system. TECHNICAL DOCUMENTATION: FINDING NUMBER: (1) ASSESSMENT: (1) JOB ID: [id number] [employer]- All Rights Reserved Reading location - IP/workstation name: [email or web address]
== END ==
LOC: WI 08:30
PROVIDERS: ATTEND Internal Medicine
DX: Z12.31 Encounter for screening mammogram for malignant neoplasm of breast (principal)
CPT/HCPCS: 77067

== ENCOUNTER → 2019-06-27 | Outpatient (CLI) | payer OTHER ==
--- NOTE | 2019-06-27 14:07 | WOMENS IMAGING REPORT ---
EXAM DESCRIPTION: LEFT DIAGNOSTIC MAMMO W/CAD; U/S BREAST UNILAT LIMITED COMPLETED DATE/TIME: 06/27/2019 12:47 pm; 06/27/2019 1:15 pm REASON FOR STUDY: R92.2 INCONCLUSIVE MAMMOGRAM; LT BREAST R92.2 R92.2 INCONCLUSIVE MAMMOGRAM COMPARISON: 06/20/2019. EXAM PARAMETERS: Spot compression CC and MLO. Non spot compressed true lateral. Targeted left breast ultrasound of the region of concern. LIMITATIONS: None. FINDINGS: BREAST LATERALITY: Left MASSES: No suspicious masses. CALCIFICATIONS: No new or suspicious calcifications. ARCHITECTURAL DISTORTION: None. DEVELOPING DENSITY: None. ASYMMETRY: None noted. OTHER: No other significant findings. Ultrasound: Scanning of the upper inner quadrant reveals normal tissue. No mass or tissue distortio n. IMPRESSION: Negative diagnostic left mammography and ultrasound. BREAST DENSITY: c. The breasts are heterogeneously dense, which may obscure small masses. BIRAD: ASSESSMENT: 1 Negative. RECOMMENDATION: RECOMMENDED FOLLOW UP: Return to yearly routine screening mammography. SPECIFIC INTERVENTION/IMAGING/CONSULTATION RECOMMENDED:No additional intervention/ imaging/consultati on needed at this time. COMMUNICATION:No significant abnormalities to discuss with the patient today. COMMENT: The patient has been notified of the results by letter per MQSA requirements. Additional no tification policies are in place for contacting patient with suspicious or incomplete findings. Quality ID #225: The [employer] recommends an annual screening mammogram for women aged 40 years or over. This facility utilizes a reminder system to ensure that all patients receive reminder letters, and/or direct phone calls for appointments. This includes reminders for routine scr eening mammograms, diagnostic mammograms, or other Breast Imaging Interventions when appropriate. Th is patient will be placed in the appropriate reminder system. TECHNICAL DOCUMENTATION: FINDING NUMBER: (1) ASSESSMENT: (1) JOB ID: [id number] [employer]- All Rights Reserved Reading location - IP/workstation name: [email or web address]
== END ==
LOC: WI 12:29
PROVIDERS: ATTEND Internal Medicine
DX: R92.2 Inconclusive mammogram (principal)
CPT/HCPCS: 76642

== ENCOUNTER 2019-08-22 15:22 | Emergency (ER) | payer OTHER ==
--- NOTE | 2019-08-22 16:33 | ER Document Report ---
ED Medical Screen (RME) - General Chief Complaint: sholder pain Stated Complaint: SHOULDER PAIN Time Seen by Provider: 08/22/19 16:29 Primary Care Provider: ANATOLIY DE LA ROSA MD [Primary Care Provider] - Follow up as needed Mode of Arrival: Ambulatory Information source: Patient Notes: Patient presents complaining of left-sided neck shoulder and upper arm pain. Patient complains of numbness and tingling that comes and goes to the left upper extremity. Patient states she has had symptoms for the past month that worsened recently. Patient denies any fever or injury. I have greeted and performed a rapid initial assessment of this patient. A comprehensive ED assessment and evaluation of the patient, analysis of test results and completion of the medical decision making process will be conducted by additional ED providers. TRAVEL OUTSIDE OF THE [place] IN LAST 30 DAYS: No - Related Data Allergies/Adverse Reactions: Bee sting Allergy (Uncoded 08/22/19 16:23) Edema Home Medications: lisinopril-hctz, trazadone, gabapentin, ibuprofen, omeprazole, multivitamin Past Medical History - Social History Chew tobacco use (# tins/day): No Frequency of alcohol use: None - Past Medical History Cardiac Medical History: Reports: Hx Hypertension - pt reports does not take medication regularly Denies: Hx Atrial Fibrillation, Hx Congestive Heart Failure, Hx Coronary Artery Disease, Hx DVT, Hx Pulmonary Embolism Pulmonary Medical History: Reports: Hx Asthma, Hx COPD Neurological Medical History: Denies: Hx Cerebrovascular Accident, Hx Migraine Renal/ Medical History: Denies: Hx Peritoneal Dialysis GI Medical History: Denies: Hx Cirrhosis Musculoskeltal Medical History: Reports Hx Arthritis Psychiatric Medical History: Reports: Hx Anxiety, Hx Depression Past Surgical History: Reports: Hx Appendectomy, Hx Orthopedic Surgery - left shoulder - Immunizations Hx Diphtheria, Pertussis, Tetanus Vaccination: No Physical Exam - Vital signs Vitals: Temp Pulse Resp BP Pulse Ox 98.1 F 87 18 148/89 H 98 08/22/19 15:45 08/22/19 15:45 08/22/19 15:45 08/22/19 15:45 08/22/19 15:45 - General General appearance: Appears well, Alert In distress: None Notes: L shoulder, L paraspinal cervical muscle tenderness, normal strength to bilateral upper extremities Course - Vital Signs Vital signs: Temp Pulse Resp BP Pulse Ox 98.1 F 87 18 148/89 H 98 08/22/19 15:45 08/22/19 15:45 08/22/19 15:45 08/22/19 15:45 08/22/19 15:45 Doctor's Discharge - Discharge Referrals: ANATOLIY DE LA ROSA MD [Primary Care Provider] - Follow up as needed
--- NOTE | 2019-08-22 17:01 | RADIOLOGY REPORT (SQ) ---
EXAM DESCRIPTION: CERV SP 4 OR 5 VIEWS COMPLETED DATE/TIME: 08/22/2019 4:54 pm REASON FOR STUDY: neck, shoulder, LUE pain COMPARISON: None. NUMBER OF VIEWS: Five views. TECHNIQUE: AP, lateral, obliques and odontoid radiographic images acquired of the cervical spine. LIMITATIONS: None. FINDINGS: MINERALIZATION: Normal. ALIGNMENT: Slight reversal of the normal cervical lordosis. VERTEBRAE: Vertebral bodies of normal height. DISCS: Disc space narrowing at C6-C7. FORAMINA: No osteophytes or foraminal narrowing. LATERAL AND POSTERIOR ELEMENTS: Facets, lateral masses and spinous processes without significant find ings. HARDWARE: None in the spine. SOFT TISSUES: No masses or calcifications. Lung apices clear. OTHER: No other significant finding. IMPRESSION: Disc degenerative disease at C6-C7. No foraminal stenosis. TECHNICAL DOCUMENTATION: JOB ID: [id number] [employer]- All Rights Reserved Reading location - IP/workstation name: [email or web address]
--- NOTE | 2019-08-22 17:03 | RADIOLOGY REPORT (SQ) ---
EXAM DESCRIPTION: SHOULDER LEFT 2 OR MORE VIEWS COMPLETED DATE/TIME: 08/22/2019 4:55 pm REASON FOR STUDY: neck, shoulder, LUE pain COMPARISON: None. NUMBER OF VIEWS: Three views. TECHNIQUE: Internal rotation, external rotation, and Y view images acquired of the left shoulder. LIMITATIONS: None. FINDINGS: MINERALIZATION: Normal. BONES: No acute fracture. No worrisome bone lesions. JOINTS: No dislocation. VISUALIZED LUNGS AND RIBS: No pneumothorax. No rib fracture. SOFT TISSUES: No radiopaque foreign body. OTHER: No other significant finding. IMPRESSION: NEGATIVE STUDY OF THE LEFT SHOULDER. NO RADIOGRAPHIC EVIDENCE OF ACUTE INJURY. TECHNICAL DOCUMENTATION: JOB ID: [id number] [employer]- All Rights Reserved Reading location - IP/workstation name: [email or web address]
[2019-08-22] MEDS ORDERED: PREDNISONE 20 MG TABLET PO ONE (18:57)
[2019-08-22] MEDS ORDERED: TRAMADOL HCL 50 MG TABLET PO ONE (18:57)
--- NOTE | 2019-08-22 18:58 | ER Document Report ---
HPI - HPI Time Seen by Provider: 08/22/19 16:29 Pain Level: 5 Context: Patient is a 54-year-old female who presents to the emergency department with a chief complaint of left shoulder and left neck pain. Patient reports this is been present for over 1 month. Patient denies injury. Patient reports she did see her primary care physician who placed her on gabapentin and ibuprofen. Patient reports she has been taking this for about 1 week without much relief. Patient reports that the pain is located in the back of her neck and radiates down into the left shoulder and left arm. Patient reports at times in certain positions she does have the sensation that her arm is feeling asleep. Patient reports that this improves with movement out of the exacerbated position. Patient requesting something stronger for pain until she can follow-up with her primary care physician on 28 August. - REPRODUCTIVE LMP: menopause Reproductive: DENIES: : - MUSCULOSKELETAL Musculoskeletal: REPORTS: Extremity pain Past Medical History - General Information source: Patient - Social History Smoking Status: Current Every Day Smoker Chew tobacco use (# tins/day): No Frequency of alcohol use: None Lives with: Family Family History: COPD, Hypertension Patient has suicidal ideation: No Patient has homicidal ideation: No - Past Medical History Cardiac Medical History: Reports: Hx Hypertension Denies: Hx Atrial Fibrillation, Hx Congestive Heart Failure, Hx Coronary Artery Disease, Hx DVT, Hx Pulmonary Embolism Pulmonary Medical History: Reports: Hx Asthma, Hx COPD EENT Medical History: Reports: None Neurological Medical History: Reports: None. Denies: Hx Cerebrovascular Accident, Hx Migraine Endocrine Medical History: Reports: None Renal/ Medical History: Reports: None. Denies: Hx Peritoneal Dialysis Malignancy Medical History: Reports: None GI Medical History: Reports: None. Denies: Hx Cirrhosis Musculoskeletal Medical History: Reports Hx Arthritis Skin Medical History: Reports None Psychiatric Medical History: Reports: Hx Anxiety, Hx Depression Traumatic Medical History: Reports: None Infectious Medical History: Reports: None Past Surgical History: Reports: Hx Appendectomy, Hx Orthopedic Surgery - left shoulder - Immunizations Hx Diphtheria, Pertussis, Tetanus Vaccination: No Vertical Provider Document - CONSTITUTIONAL Agree With Documented VS: Yes Exam Limitations: No Limitations General Appearance: No Apparent Distress - INFECTION CONTROL TRAVEL OUTSIDE OF THE [place] IN LAST 30 DAYS: No - HEENT HEENT: Atraumatic, Normocephalic, PERRLA - NECK Neck: Normal Inspection Notes: No cervical midline tenderness. Patient does have tenderness to the left lateral neck. - RESPIRATORY Respiratory: Breath Sounds Normal, No Respiratory Distress - CARDIOVASCULAR Cardiovascular: Regular Rate, Regular Rhythm - GI/ABDOMEN Gastrointestinal: Abdomen Soft, Abdomen Non-Tender, Normal Bowel Sounds - BACK Back: Normal Inspection - MUSCULOSKELETAL/EXTREMETIES Notes: Patient has full range of motion to the left shoulder. There is no tenderness to the anterior, lateral or posterior aspect of the shoulder. Patient has nonspecific left shoulder pain. Patient has strong bilateral brim rounder to the upper extremities. Patient is able to internally and externally rotate the left shoulder without any difficulty. - NEURO Level of Consciousness: Awake, Alert, Appropriate - DERM Integumentary: Warm, Dry, No Rash Course - Re-evaluation Re-evalutation: 08/22/19 20:14 Patient does not have any weakness to left arm when compared to the right. We will place the patient on a steroid Dosepak as well as Ultram. Patient instructed to follow-up with her primary care physician and to return if sympto ms worsen. Patient symptoms appear to be chronic not acute. Patient reports she originally had an injury at the age of 19 in which they had to remove a part of the bone from the left shoulder. Patient was told that she would have issues with arthritis later in life. Patient reports that her doctors treating her for nerve pain. - Vital Signs Vital signs: Temp Pulse Resp BP Pulse Ox 98.1 F 87 18 148/89 H 98 08/22/19 15:45 08/22/19 15:45 08/22/19 15:45 08/22/19 15:45 08/22/19 15:45 - Diagnostic Test Radiology reviewed: Reports reviewed Radiology results interpreted by me: 08/22/19 18:57 Cervical Spine X-Ray 08/22/19 16:31 IMPRESSION: Disc degenerative disease at C6-C7. No foraminal stenosis. Shoulder X-Ray 08/22/19 16:31 IMPRESSION: NEGATIVE STUDY OF THE LEFT SHOULDER. NO RADIOGRAPHIC EVIDENCE OF ACUTE INJURY. Discharge - Discharge Clinical Impression: Cervical pain (neck), Cough Left shoulder pain Qualifiers: Chronicity: chronic Qualified Code(s): M25.512 - Pain in left shoulder Condition: Stable Disposition: HOME, SELF-CARE Additional Instructions: Today you are seen in the emergency department for left shoulder pain and neck pain. This is been ongoing for 1 month. Please continue taking the gabapentin and ibuprofen as prescribed by your primary care physician. I have started you on a steroid Dosepak to see if this helps with the inflammation and your symptoms. Please take this only as prescribed. Your pain appears to be more nerve related. There could be some inflammation and compression on a nerve which is causing the intermittent numbness and tingling to the left arm. I have given you some Ultram. Ultram is a pain medication that has a narcotic- like effects and can make you sleepy and drowsy. Take only as prescribed. Shoulder Injury You have injured your shoulder. This usually results from stretching or tearing of the tendons during trauma. Time and protection are required in order to heal properly. Many injuries are quite disabling, and should be taken seriously. Initial treatment includes cold packs and a sling to rest the shoulder. The physician has assessed the seriousness of your injury, and has outlined a treatment plan. Understand that this treatment may change, depending on how you progress. If a re-examination was recommended, it is important that you follow up as instructed. Some shoulder injuries (such as partial tear of the rotator cuff) are only suspected after you've failed to improve. Call us if there's severe pain, numbness, or loss of function. Neck Injury (Cervical Strain) You have a neck strain. This is an injury to the muscles and ligaments in the neck. There is no evidence of a fracture of the neck bones. Also, no injury to the spinal cord or nerve roots was detected. Usually, stiffness and pain INCREASE for the first 24-48 hours after the injury. The pain will gradually resolve and the neck will become more mobile. Most patients are back at work or school within a few days. Typically, complete healing takes about two or three weeks. The usual initial treatment is rest and cold packs. A neck collar may be placed to keep the muscles of the neck at rest. Antiinflammatory and muscle relaxing medication are often used to reduce the spasm and irritation. You should call the doctor, or go to the hospital, if you develop numbness or weakness in any extremity, problems with your bladder or bowel, or pain radiating down the arms. Prescriptions: Prednisone [Deltasone 10 mg Tablet] 10 mg PO ASDIR PRN #21 tablet PRN Reason: Tramadol HCl [Ultram] 50 mg PO Q6 PRN #15 tablet PRN Reason: Forms: Smoking Cessation Education Referrals: ANATOLIY DE LA ROSA MD [Primary Care Provider] - Follow up as needed
[2019-08-22 19:03] VITALS: BP 148/72
== END 2019-08-22 19:06 | disposition home or self-care (01) ==
LOC: ER 15:22
DX: M50.323 Other cervical disc degeneration at C6-C7 level (principal); M79.2 Neuralgia and neuritis, unspecified; M25.512 Pain in left shoulder; R05 Cough; F17.200 Nicotine dependence, unspecified, uncomplicated; I10 Essential (primary) hypertension; J44.9 Chronic obstructive pulmonary disease, unspecified
CPT/HCPCS: 72050; 73030; J7512; 99284

== ENCOUNTER 2019-09-05 10:28 | Emergency (ER) | payer OTHER ==
[2019-09-05] MEDS ORDERED: HYDROCODONE/ACETAMINOPHEN 5-325 MG TABLET PO ONE (11:10)
--- NOTE | 2019-09-05 11:12 | ER Document Report ---
ED Medical Screen (RME) - General Chief Complaint: Neck Pain >24hrs old Stated Complaint: NECK PAIN Time Seen by Provider: 09/05/19 10:34 Primary Care Provider: SHASTA DE LA ROSA MD [Primary Care Provider] - Follow up as needed Mode of Arrival: Medic Information source: Patient Notes: Patient presents complaining of neck and left shoulder pain for the past 2 months that worsened today. Patient states that her primary doctor Dr. Shasta De La Rosa at the [facility] was going to get her set up for an outpatient MRI but patient states that when she called her doctor told her to come to the emergency department and demand that the MRI be done here today. Patient denies any fever or recent injury. Patient was seen here recently for this complaint and had x-rays performed that did show some degenerative changes to the cervical spine. I have greeted and performed a rapid initial assessment of this patient. A comprehensive ED assessment and evaluation of the patient, analysis of test results and completion of the medical decision making process will be conducted by additional ED providers. TRAVEL OUTSIDE OF THE [place] IN LAST 30 DAYS: No - Related Data Allergies/Adverse Reactions: Bee sting Allergy (Uncoded 08/22/19 16:23) Edema Home Medications: gabapentin Past Medical History - Social History Frequency of alcohol use: None - Past Medical History Cardiac Medical History: Reports: Hx Hypertension Denies: Hx Atrial Fibrillation, Hx Congestive Heart Failure, Hx Coronary Artery Disease, Hx DVT, Hx Pulmonary Embolism Pulmonary Medical History: Reports: Hx Asthma, Hx COPD Neurological Medical History: Denies: Hx Cerebrovascular Accident, Hx Migraine Renal/ Medical History: Denies: Hx Peritoneal Dialysis GI Medical History: Denies: Hx Cirrhosis Musculoskeltal Medical History: Reports Hx Arthritis Psychiatric Medical History: Reports: Hx Anxiety, Hx Depression Past Surgical History: Reports: Hx Appendectomy, Hx Orthopedic Surgery - left shoulder - Immunizations Hx Diphtheria, Pertussis, Tetanus Vaccination: No Physical Exam - Vital signs Vitals: Temp Pulse Resp BP Pulse Ox 98.5 F 80 20 142/105 H 99 09/05/19 10:42 09/05/19 10:42 09/05/19 10:42 09/05/19 10:42 09/05/19 10:42 - General General appearance: Alert, Anxious Notes: tenderness to cervical spine and left shoulder joint, 2+ radial pulse Course - Vital Signs Vital signs: Temp Pulse Resp BP Pulse Ox 98.5 F 80 20 142/105 H 99 09/05/19 10:42 09/05/19 10:42 09/05/19 10:42 09/05/19 10:42 09/05/19 10:42 Doctor's Discharge - Discharge Referrals: SHASTA DE LA ROSA MD [Primary Care Provider] - Follow up as needed
[2019-09-05] MEDS ORDERED: LIDOCAINE 5% (700 MG) TRANSDERMAL ADH..PATCH TP ONE (14:01)
--- NOTE | 2019-09-05 14:20 | RADIOLOGY REPORT (SQ) ---
EXAM DESCRIPTION: MRI CERVICAL SPINE WITHOUT COMPLETED DATE/TIME: 09/05/2019 2:01 pm REASON FOR STUDY: neck pain, LUE paresthesia/pain COMPARISON: Cervical spine radiographs, 08/22/2017 TECHNIQUE: Sagittal and Axial imaging includes T1, T2, STIR and gradient echo sequences. LIMITATIONS: None. FINDINGS: ALIGNMENT: Straightening of the normal cervical lordosis. VERTEBRAE: Intact. BONE MARROW: Normal. No marrow replacement or reactive changes. DISCS: Multilevel disc desiccation and height loss with small broad-based central posterior disc bulg es at C3 through C7. HARDWARE: None in the spine. CORD AND BASE OF BRAIN: Normal in size and signal intensity. SOFT TISSUES: No soft tissue masses. C1-C2: No significant spinal stenosis. C2-C3: No significant spinal stenosis or exit foraminal stenosis. C3-C4: Small broad-based, right eccentric posterior disc bulge which contacts the ventral spinal cord with minimal cord deformity. No significant signal abnormality. Minimum AP diameter of the cervica l canal approximately 7 mm. C4-C5: Small broad-based central posterior disc bulge which contacts the ventral spinal cord. No sig nificant cord deformity or signal abnormality. Minimum AP diameter of the cervical canal approximate ly 8 mm. Moderate left, mild right neural foraminal stenosis secondary to facet hypertrophy and unco vertebral change. C5-C6: Small broad-based central posterior disc bulge which contacts the ventral spinal cord with min imal cord deformity. No significant signal abnormality. Minimum AP diameter of the cervical canal a pproximately 7 mm. Moderate bilateral neural foraminal stenosis secondary to facet hypertrophy and u ncovertebral change. C6-C7: Small broad-based central posterior disc bulge which does not contact the cervical cord. Mini mum AP diameter approximately 9 mm. Moderate bilateral neural foraminal stenosis secondary to facet hypertrophy and uncovertebral change. C7-T1: No significant spinal stenosis or exit foraminal stenosis. UPPER THORACIC: Incompletely imaged. No significant spinal stenosis or exit foraminal stenosis. OTHER: No other significant finding. IMPRESSION: Moderate multilevel cervical disc degenerative disease as detailed above, notable for ge nerally mild multilevel central cervical stenosis secondary to disc bulge and congenitally short cerv ical pedicles, and multilevel bilateral neural foraminal stenosis secondary to facet hypertrophy and uncovertebral change. There is ventral cord contact at multiple levels from C3 through C6 with minim al cord deformity and without significant cord signal abnormality. TECHNICAL DOCUMENTATION: JOB ID: [id number] [employer]- All Rights Reserved Reading location - IP/workstation name: [email or web address]
[2019-09-05] MEDS ORDERED: OXYCODONE-ACETAMINOPHEN 5-325 MG TABLET PO ONE (14:53)
--- NOTE | 2019-09-05 15:07 | ER Document Report ---
ED General - General Chief Complaint: Neck Pain >24hrs old Stated Complaint: NECK PAIN Time Seen by Provider: 09/05/19 10:34 Primary Care Provider: JAMILA MURPHY MD [COMMUNITY BASED STAFF] - Follow up in 1 week (for neurosurgery) ANATOLIY DE LA ROSA MD [Primary Care Provider] - Follow up in 3-5 days Mode of Arrival: Medic TRAVEL OUTSIDE OF THE [place] IN LAST 30 DAYS: No - HPI Notes: 54 year old female to the ED with C/O neck pain that radiates down her left arm and into her left fingers for the past two months. States she has been followed by her PCP by this but it has not gotten better. States she was told by PCP to come to the ER for a MRI. She denies weakness to the arm. States that the tingling into her arm is like burning and it effects her index finger, middle finger. States she feels like she always needs to move the arm. Denies any recent falls or trauma. She smokes. - Related Data Allergies/Adverse Reactions: Bee sting Allergy (Uncoded 08/22/19 16:23) Edema Home Medications: gabapentin Past Medical History - General Information source: Patient - Social History Smoking Status: Current Every Day Smoker Frequency of alcohol use: None Drug Abuse: None Family History: COPD, Hypertension Patient has suicidal ideation: No Patient has homicidal ideation: No - Past Medical History Cardiac Medical History: Reports: Hx Hypertension Denies: Hx Atrial Fibrillation, Hx Congestive Heart Failure, Hx Coronary Artery Disease, Hx DVT, Hx Pulmonary Embolism Pulmonary Medical History: Reports: Hx Asthma, Hx COPD Neurological Medical History: Denies: Hx Cerebrovascular Accident, Hx Migraine Renal/ Medical History: Denies: Hx Peritoneal Dialysis GI Medical History: Denies: Hx Cirrhosis Musculoskeletal Medical History: Reports Hx Arthritis Psychiatric Medical History: Reports: Hx Anxiety, Hx Depression Past Surgical History: Reports: Hx Appendectomy, Hx Orthopedic Surgery - left shoulder - Immunizations Hx Diphtheria, Pertussis, Tetanus Vaccination: No Review of Systems - Review of Systems Constitutional: denies: Chills, Fever EENT: No symptoms reported Cardiovascular: denies: Chest pain, Palpitations, Heart racing, Dyspnea, Syncope, Dizziness, Lightheaded Respiratory: denies: Cough, Short of breath Gastrointestinal: denies: Abdominal pain, Diarrhea, Nausea, Vomiting Genitourinary: No symptoms reported Female Genitourinary: No symptoms reported Musculoskeletal: Neck pain - with radiation down into the left arm Skin: No symptoms reported Hematologic/Lymphatic: No symptoms reported Neurological/Psychological: No symptoms reported -: Yes All other systems reviewed and negative Physical Exam - Vital signs Vitals: Temp Pulse Resp BP Pulse Ox 98.5 F 80 20 142/105 H 99 09/05/19 10:42 09/05/19 10:42 09/05/19 10:42 09/05/19 10:42 09/05/19 10:42 Interpretation: Normal - General General appearance: Appears well, Alert - HEENT Head: Normocephalic, Atraumatic Eyes: Normal Pupils: PERRL - Respiratory Respiratory status: No respiratory distress Chest status: Nontender Breath sounds: Normal Chest palpation: Normal - Cardiovascular Rhythm: Regular Heart sounds: Normal auscultation Murmur: No - Back Back: Normal, Nontender, Other - there is mid TTP over the midline cervical spine with no step off or deformity. No: CVA tenderness - Extremities General upper extremity: Normal inspection, Nontender, Normal color, Normal temperature General lower extremity: Normal inspection, Nontender, Normal color, Normal ROM, Normal temperature, Normal weight bearing. No: Raquel's sign Notes: negative phalens and tinel's. patient reports shooting burning pain into the arm and into the fingers om the left side. There is 5/5 strength in BUE against resistance in flexion and extension. radial pulses intact and equal. cap refills is less than 2 sec. - Neurological Neuro grossly intact: Yes Cognition: Normal Orientation: AAOx4 Chloe Coma Scale Eye Opening: Spontaneous Chloe Coma Scale Verbal: Oriented Chloe Coma Scale Motor: Obeys Commands Chloe Coma Scale Total: 15 Speech: Normal Cranial nerves: Normal. No: Facial palsy, Forehead sparing, Gaze palsy, Sensory deficit, Tongue deviation Cerebellar coordination: Normal. No: Gait ataxia Motor strength normal: LUE, RUE, LLE, RLE Additional motor exam normals: Equal oracle sql developer. No: Pronator drift Sensory: Normal - Psychological Associated symptoms: Normal affect, Normal mood - Skin Skin Temperature: Warm Skin Moisture: Dry Skin Color: Normal Course - Re-evaluation Re-evalutation: Cervical Spine MRI 09/05/19 12:01 IMPRESSION: Moderate multilevel cervical disc degenerative disease as detailed above, notable for generally mild multilevel central cervical stenosis secondary to disc bulge and congenitally short cervical pedicles, and multilevel bilateral neural foraminal stenosis secondary to facet hypertrophy and uncovertebral change. There is ventral cord contact at multiple levels from C3 through C6 with minimal cord deformity and without significant cord signal abnormality. Discussed patient with Dr. Glez. Would like for me to place the patient in a shoulder immobilizer, send home with muscle relaxants and steroids. Will have her follow with PCP and neurosurgery without fail. Patient agrees with the plan. Encouraged to follow up and encouraged to return if her symptoms worsen. - Vital Signs Vital signs: Temp Pulse Resp BP Pulse Ox 97.8 F 80 18 129/87 H 96 09/05/19 15:29 09/05/19 10:42 09/05/19 15:29 09/05/19 15:29 09/05/19 15:29 Discharge - Discharge Clinical Impression: Neck pain, Cervical radiculopathy, Degenerative disc disease, cervical Condition: Stable Disposition: HOME, SELF-CARE Instructions: Radiculopathy ([facility]) Additional Instructions: PUSH FLUIDS. TAKE STEROIDS PRESCRIBED. FOLLOW UP WITH [facility]. WEAR SHOULDER IMMOBILIZER EVERY DAY FOR THE NEXT 7 DAYS TO AID IN PAIN RELIEF. Prescriptions: Methylprednisolone [Medrol Dosepack (4 mg/Tab) 21 Tab/Dosepak] 4 mg PO ASDIR PRN #21 tab.ds.pk PRN Reason: Referrals: ANATOLIY DE LA ROSA MD [Primary Care Provider] - Follow up in 3-5 days JAMILA MURPHY MD [COMMUNITY BASED STAFF] - Follow up in 1 week (for neurosurgery)
[2019-09-05 15:31] VITALS: BP 129/87
== END 2019-09-05 15:29 | disposition home or self-care (01) ==
LOC: ER 10:28
DX: M54.12 Radiculopathy, cervical region (principal); M50.30 Other cervical disc degeneration, unspecified cervical region; F17.200 Nicotine dependence, unspecified, uncomplicated; I10 Essential (primary) hypertension; J44.9 Chronic obstructive pulmonary disease, unspecified; Z91.030 Bee allergy status
CPT/HCPCS: 99284; 72141; L3650 ×2

== ENCOUNTER 2019-11-21 21:48 | Observation (INO) | payer OTHER ==
[2019-11-21 22:44] LABS: ABSOLUTE EOSINOPHILS # (AUTO) 0.1 10^3/uL (0.0-0.6); ABSOLUTE LYMPHOCYTES (AUTO) 1.9 10^3/uL (0.5-4.7); ABSOLUTE MONOCYTES (AUTO) 0.8 10^3/uL (0.1-1.4); ABSOLUTE NEUT (AUTO) 10.5 10^3/uL (1.7-8.2); BASOPHILS % (AUTO) 0.3 % (0-2); EOSINOPHILS % (AUTO) 0.5 % (0-6); HEMATOCRIT 34.1 % (36.0-47.0); HEMOGLOBIN 12.1 g/dL (12.0-15.5); LYMPHOCYTES % (AUTO) 14.5 % (13-45); MEAN CORPUSCULAR HEMOGLOBIN 34.8 pg (27.0-33.4); MEAN CORPUSCULAR HGB CONC 35.6 g/dL (32.0-36.0); MEAN CORPUSCULAR VOLUME 98 fl (80-97); MONOCYTES % (AUTO) 6.3 % (3-13); PLATELET COUNT 338 10^3/uL (150-450); RED BLOOD COUNT 3.49 10^6/uL (3.72-5.28); RED CELL DISTRIBUTION WIDTH 12.9 % (11.5-14.0); SEGMENTED NEUTROPHILS % (AUTO) 78.4 % (42-78); TOTAL CELLS COUNTED % (AUTO) 100 %; WHITE BLOOD COUNT 13.4 10^3/uL (4.0-10.5)
[2019-11-21 23:03] LABS: ALKALINE PHOSPHATASE 81 U/L (38-126); ANION GAP 12 (5-19); ASPARTATE AMINO TRANSFERASE 22 U/L (14-36); BILIRUBIN,TOTAL 0.6 mg/dL (0.2-1.3); BLOOD UREA NITROGEN 19 mg/dL (7-20); CALCIUM 8.9 mg/dL (8.4-10.2); CARBON DIOXIDE 24 mmol/L (22-30); CHLORIDE 87 mmol/L (98-107); CREATINE KINASE 122 U/L (30-135); GLUCOSE 88 mg/dL (75-110); POTASSIUM 3.5 mmol/L (3.6-5.0); TOTAL PROTEIN 6.7 g/dL (6.3-8.2)
[2019-11-21 23:13] LABS: APPEARANCE,URINE CLEAR; BILIRUBIN,URINE NEGATIVE (NEGATIVE); COLOR,URINE YELLOW; GLUCOSE, URINE NEGATIVE (NEGATIVE); KETONES,URINE NEGATIVE (NEGATIVE); LEUKOCYTE ESTERASE,URINE NEGATIVE (NEGATIVE); NITRITE,URINE NEGATIVE (NEGATIVE); PROTEIN,URINE NEGATIVE (NEGATIVE); URINE SPECIFIC GRAVITY 1.011; UROBILINOGEN,URINE NEGATIVE mg/dL (<2.0)
[2019-11-21 23:15] LABS: TROPONIN I < 0.012 ng/mL
[2019-11-21 23:45] LABS: URINE AMPHETAMINES SCREEN NEGATIVE; URINE BARBITURATES SCREEN NEGATIVE; URINE BENZODIAZEPINES SCREEN NEGATIVE; URINE COCAINE SCREEN NEGATIVE; URINE MARIJUANA (THC) SCREEN NEGATIVE; URINE METHADONE SCREEN NEGATIVE; URINE PHENCYCLIDINE SCREEN NEGATIVE
[2019-11-22] MEDS ORDERED: NORMAL SALINE 1000 ML 1,000 ML IV ONE ×2 (00:04)
--- NOTE | 2019-11-22 01:42 | RADIOLOGY REPORT (SQ) ---
EXAM DESCRIPTION: CT HEAD WITHOUT IV CONTRAST COMPLETED DATE/TME: 11/21/2019 23:12 CLINICAL HISTORY: 54 years Female syncope COMPARISON: 06/26/2014. TECHNIQUE: Contiguous axial CT images obtained through the brain without IV contrast. This exam was performed according to our department optimization program which includes automated exposure control, adjustment of the mA and/or kv according to patient size and/or use of iterative reconstruction technique. FINDINGS: The ventricles and sulci are within normal limits for the patient's age. No midline shift or mass effect. No masses identified. No acute intracranial hemorrhage. No fluid or significant mucosal thickening in the visualized paranasal sinuses. No depressed calvarial fractures. IMPRESSION: No acute intracranial abnormality is identified.
--- NOTE | 2019-11-22 02:09 | ER Document Report ---
ED Dizziness/Weakness - General Chief Complaint: Near Syncope Stated Complaint: FAINTED Time Seen by Provider: 11/21/19 21:55 Primary Care Provider: ANATOLIY DE LA ROSA MD [Primary Care Provider] - Follow up as needed Mode of Arrival: Ambulatory Information source: Patient TRAVEL OUTSIDE OF THE [place] IN LAST 30 DAYS: No - HPI Notes: Patient is brought in after an episode of near syncope tonight. Patient states that she was walking when she felt weak and dropped some dishes on plates. She states she when walked back over to the sink and became dizzy again and slumped over the sink. Her significant other states he went to grab her and her knees became weak and she essentially became near syncopal. She states that she still feels weak now but better. Paramedics state in route she was borderline hypotensive with a blood pressure in the 90s but that when they did orthostatics her blood pressure actually increased. Patient states she had 2 wine coolers tonight. She states she did take 1 Vicodin from an old prescription. She denies any injuries in the fall. She denies having any significant pain or shortness of breath. No vomiting or diarrhea recently. No problems with urination. Her weakness was severe. It was intermittent. It is worse with exertion and better with rest. She states she has had significant electrolyte issues in the past. - Related Data Allergies/Adverse Reactions: Bee sting Allergy (Uncoded 08/22/19 16:23) Edema Home Medications: trazodone 100mg qhs. gabepentin 300mg bid. prozac. folic acid. prilosec. lisinopril-hctz \. ntg prn Past Medical History - General Information source: Patient - Social History Smoking Status: Current Every Day Smoker Chew tobacco use (# tins/day): No Frequency of alcohol use: Rare Drug Abuse: None Family History: COPD, Hypertension Patient has suicidal ideation: No Patient has homicidal ideation: No - Past Medical History Cardiac Medical History: Reports: Hx Hypertension Denies: Hx Atrial Fibrillation, Hx Congestive Heart Failure, Hx Coronary Artery Disease, Hx DVT, Hx Pulmonary Embolism Pulmonary Medical History: Reports: Hx Asthma, Hx COPD Neurological Medical History: Denies: Hx Cerebrovascular Accident, Hx Migraine Renal/ Medical History: Denies: Hx Peritoneal Dialysis GI Medical History: Denies: Hx Cirrhosis Musculoskeletal Medical History: Reports Hx Arthritis Psychiatric Medical History: Reports: Hx Anxiety, Hx Depression Past Surgical History: Reports: Hx Appendectomy, Hx Orthopedic Surgery - left shoulder - Immunizations Hx Diphtheria, Pertussis, Tetanus Vaccination: No Review of Systems - Review of Systems Constitutional: Malaise, Weakness. denies: Chills, Fever Cardiovascular: denies: Chest pain, Palpitations Respiratory: denies: Cough, Short of breath -: Yes All other systems reviewed and negative Physical Exam - Vital signs Vitals: Resp BP Pulse Ox 14 99/64 L 99 11/21/19 22:13 11/21/19 22:13 11/21/19 22:13 Interpretation: Normal - General General appearance: Appears well, Alert - HEENT Head: Normocephalic, Atraumatic Eyes: Normal Pupils: PERRL - Respiratory Respiratory status: No respiratory distress Chest status: Nontender Breath sounds: Normal Chest palpation: Normal - Cardiovascular Rhythm: Regular Heart sounds: Normal auscultation Murmur: No - Abdominal Inspection: Normal Distension: No distension Bowel sounds: Normal Tenderness: Nontender Organomegaly: No organomegaly - Back Back: Normal, Nontender - Extremities General upper extremity: Normal inspection, Nontender, Normal color, Normal ROM, Normal temperature General lower extremity: Normal inspection, Nontender, Normal color, Normal ROM, Normal temperature, Normal weight bearing. No: Raquel's sign - Neurological Neuro grossly intact: Yes Cognition: Normal Orientation: AAOx4 [place] Coma Scale Eye Opening: Spontaneous Chloe Coma Scale Verbal: Oriented [place] Coma Scale Motor: Obeys Commands Chloe Coma Scale Total: 15 Speech: Normal Cranial nerves: Normal Motor strength normal: LUE, RUE, LLE, RLE Additional motor exam normals: Equal level designer. No: Pronator drift Sensory: Normal - Psychological Associated symptoms: Normal affect, Normal mood - Skin Skin Temperature: Warm Skin Moisture: Dry Skin Color: Normal Course - Re-evaluation Re-evalutation: 11/22/19 02:06 Patient presents with a near syncopal episode. She has had some borderline hypotension here, as well as having significant hyponatremia on evaluation. Patient does not appear to be under the influence of any type of significant narcotic or alcohol. Her near syncopal episode appears to be due to the hyponatremia and dehydration. No evidence of infection is obvious at this time. - Vital Signs Vital signs: Temp Pulse Resp BP Pulse Ox 98.2 F 75 16 108/65 98 11/21/19 22:15 11/21/19 22:41 11/22/19 01:01 11/22/19 01:00 11/22/19 01:01 - Laboratory Result Diagrams: 11/21/19 22:26 11/21/19 22:26 Laboratory results interpreted by me: 11/21/19 11/21/19 22:26 22:26 WBC 13.4 H RBC 3.49 L Hct 34.1 L MCV 98 H MCH 34.8 H Absolute Neuts (auto) 10.5 H Seg Neutrophils % 78.4 H Sodium 122.6 L Potassium 3.5 L Chloride 87 L Creatinine 1.59 H Est GFR ( Amer) 41 L Est GFR (MDRD) Non-Af 34 L - Diagnostic Test Radiology reviewed: Image reviewed, Reports reviewed - EKG Interpretation by Me EKG shows normal: Sinus rhythm Rate: Normal - 75 Rhythm: NSR Tranquillity/QRS: No: Right axis deviation, Left axis deviation Discharge - Discharge Clinical Impression: Near syncope, Hyponatremia Condition: Fair Disposition: ADMITTED INPATIENT Admitting Provider: Lyric (Hospitalist) Unit Admitted: Telemetry Referrals: ANATOLIY DE LA ROSA MD [Primary Care Provider] - Follow up as needed
[2019-11-22] MEDS ORDERED: MAGNESIUM HYDROXIDE SUSP 30 ML UDCUP PO PRN (03:09)
[2019-11-22] MEDS ORDERED: ONDANSETRON HCL INJ/PF 4 MG/2 ML SDV IV PRN (03:09)
[2019-11-22] MEDS ORDERED: MAG HYDROX/AL HYDROX/SIMETH SUSP 30 ML UDCUP PO PRN (03:09)
[2019-11-22] MEDS ORDERED: LORAZEPAM INJ 2 MG/1 ML VIAL IV PRN (03:15)
[2019-11-22] MEDS ORDERED: MORPHINE SULFATE 10 MG/ML INJ IV PRN ×3 (03:15)
[2019-11-22] MEDS ORDERED: ACETAMINOPHEN 325 MG TABLET PO PRN (03:15)
[2019-11-22] MEDS ORDERED: LEVALBUTEROL HCL NEB 0.63 MG/3 ML AMPUL NEB PRN (03:15)
[2019-11-22] MEDS ORDERED: NICOTINE 21 MG/24 HR PATCH.TD24 TD PRN (03:19)
[2019-11-22 04:02] LABS: CREATINE KINASE MB 1.32 ng/mL (<4.55)
[2019-11-22 04:10] LABS: TROPONIN I < 0.012 ng/mL
[2019-11-22] MEDS: RINGERS SOLUTION,LACTATED 1,000 ML IV PRN ×2 (04:35→16:44)
--- NOTE | 2019-11-22 06:16 | PDOC H&P ---
History of Present Illness Admission Date/PCP: 11/22/2019 02:47 ANATOLIY DE LA ROSA MD Patient complains of: Weakness History of Present Illness: ALTAF GRAY is a 54 year old female who presented to the emergency room w ith acute weakness. She admits that while at home doing dishes she suddenly felt weak and dropped some of the dishes she was holding. She felt dizzy and lightheaded and made her way to the sink where she slumped over and supported herself. Her significant other then came to her side and was trying to help her get to a chair when her knees became weak and she felt as though she was going to pass out before she got to the chair and as such decided to come to the hospital. Patient admits having consumed 2 wine coolers and a Vicodin earlier in the evening prior to her symptoms. She describes her weakness as severe and intermittent worsened by activity and improved somewhat with rest. She denies other associated or accompanying signs and symptoms. She admits numerous prior similar episodes related to low sodium levels. She has not identified any additional aggravating or ameliorating factors for her acute weakness. In the emergency room she was found to be initially mildly hypotensive and tachycardic both of which have improved to baseline levels with IV fluids. She was admitted observation status for further evaluation treatment. Past Medical History Cardiac Medical History: Reports: Hypertension Denies: Atrial Fibrillation, Congestive Heart Failure, Coronary Artery Disease, DVT, Pulmonary Embolism Pulmonary Medical History: Reports: Asthma, Chronic Obstructive Pulmonary Disease (COPD) EENT Medical History: Denies: Cataracts, Ears - Hearing aids Neurological Medical History: Denies: Hemorrhagic CVA, Ischemic CVA, Migraine, Seizures Endocrine Medical History: Denies: Diabetes Mellitus Type 1, Diabetes Mellitus Type 2, Hyperthyroidism, Hypothyroidism Renal/ Medical History: Denies: Chronic Kidney Disease, Nephrolithiasis Malignancy Medical History: Reports: None GI Medical History: Reports: Gastroesophageal Reflux Disease, Other - Esophageal stricture Denies: Cirrhosis, Crohn's Disease, Hepatitis, Ulcerative Colitis Musculoskeltal Medical History: Reports: Arthritis, Other - Chronic pain syndrome Denies: Gout Skin Medical History: Denies: Eczema, Psoriasis Psychiatric Medical History: Reports: Alcohol Dependency, Depression, Substance Abuse, Tobacco Dependency Traumatic Medical History: Reports: None Hematology: Denies: Anemia, Bleeding Tendencies Infectious Medical History: Reports: None Past Surgical History Past Surgical History: Reports: Appendectomy, Orthopedic Surgery - left shoulder, Other - EGD Social History Information Source: Patient Lives with: Spouse/Significant other Smoking Status: Current Every Day Smoker Electronic Cigarette use?: No Frequency of Alcohol Use: Heavy - Drinks at least one 24 ounce wine cooler (8% alcohol) daily, "just to take the edge off". Hx Recreational Drug Use: No Drugs: None Hx Prescription Drug Abuse: Yes - Remote history of opiate addiction with prescription drug abuse. Family History Family History: COPD, Hypertension, Thyroid Disfunction. denies: CAD, DM, Malignancy Parental Family History Reviewed: Yes Children Family History Reviewed: No Sibling(s) Family History Reviewed.: Yes Medication/Allergy Home Medications: Folic Acid [Folvite 1 mg Tablet] 1 mg PO DAILY 04/29/19 Multivit-Minerals/Folic Acid [One Daily Womens 50 Plus Tab] 0.4 mg PO DAILY 04/29/19 Trazodone HCl 100 mg PO QHS 04/29/19 Acetaminophen [Tylenol 325 mg Tablet] 975 mg PO Q6HP PRN tablet 05/01/19 Lisinopril [Prinivil 10 mg Tablet] 20 mg PO QHS #30 tablet 05/01/19 Nicotine [Nicoderm 14 mg/24 Hr Transdermal Patch] 1 each TD DAILY #30 patch.td24 05/01/19 Ondansetron [Zofran Odt 4 mg Tablet] 8 mg PO Q6HP PRN #12 tab.rapdis 05/01/19 Tramadol HCl [Ultram] 50 mg PO Q6 PRN #15 tablet 08/22/19 Methylprednisolone [Medrol Dosepack (4 mg/Tab) 21 Tab/Dosepak] 4 mg PO ASDIR PRN #21 tab.ds.pk 09/05/19 Allergies/Adverse Reactions: Bee sting Allergy (Uncoded 08/22/19 16:23) Edema Review of Systems Constitutional: PRESENT: as per HPI, weakness. ABSENT: chills, fever(s) Eyes: ABSENT: visual disturbances, other - Eye pain Ears: ABSENT: hearing changes, other - Ear pain Nose, Mouth, and Throat: ABSENT: headache(s), mouth pain, sore throat Cardiovascular: PRESENT: as per HPI, other - Lightheadedness. ABSENT: chest pain, palpitations Respiratory: ABSENT: cough, dyspnea Gastrointestinal: ABSENT: abdominal pain, constipation, diarrhea, nausea, vomiting Genitourinary: ABSENT: dysuria, hematuria Musculoskeletal: ABSENT: back pain, joint swelling, muscle weakness Integumentary: ABSENT: pruritus, rash Neurological: PRESENT: as per HPI, dizziness, weakness, other - Lightheadedness. ABSENT: confusion, convulsions, focal weakness, syncope Psychiatric: ABSENT: anxiety, depression Endocrine: ABSENT: cold intolerance, heat intolerance Hematologic/Lymphatic: ABSENT: easy bleeding, easy bruising Allergic/Immunologic: ABSENT: seasonal rhinorrhea Physical Exam Vital Signs: Temp Pulse Resp BP Pulse Ox 98.2 F 75 15 100/60 97 11/22/19 02:16 11/21/19 22:41 11/22/19 02:01 11/22/19 02:00 11/22/19 02:01 Intake & Output 11/20/19 11/21/19 11/22/19 23:59 23:59 23:59 Intake Total 500 2000 Balance 500 2000 Weight 73.482 kg General appearance: PRESENT: no acute distress, cooperative Head exam: PRESENT: atraumatic, normocephalic Eye exam: PRESENT: conjunctiva pink. ABSENT: conjunctival injection, scleral icterus Ear exam: PRESENT: normal external ear exam. ABSENT: bleeding, drainage Mouth exam: PRESENT: dry mucosa, neck supple Neck exam: ABSENT: thyromegaly, tracheal deviation Respiratory exam: PRESENT: clear to auscultation vivian, symmetrical, unlabored Cardiovascular exam: PRESENT: RRR. ABSENT: clicks, gallop, rubs Pulses: PRESENT: normal radial pulses, normal dorsalis pedis pul Vascular exam: PRESENT: normal capillary refill. ABSENT: pallor GI/Abdominal exam: PRESENT: ascites - Moderate abdominal ascites is noted., normal bowel sounds, soft Rectal exam: PRESENT: deferred Extremities exam: ABSENT: joint swelling, pedal edema Musculoskeletal exam: ABSENT: deformity, dislocation Neurological exam: PRESENT: alert, oriented to person, oriented to place, oriented to time, oriented to situation, CN II-XII grossly intact. ABSENT: motor sensory deficit Psychiatric exam: PRESENT: appropriate affect, normal mood Skin exam: PRESENT: dry, intact, warm. ABSENT: jaundice, rash, urticaria Results Laboratory Results: 11/21/19 22:26 11/21/19 22:26 01/22/20 01/22/20 01/22/20 22:26 22:26 22:35 WBC 13.4 H RBC 3.49 L Hgb 12.1 Hct 34.1 L MCV 98 H MCH 34.8 H MCHC 35.6 RDW 12.9 Plt Count 338 Seg Neutrophils % 78.4 H Sodium 122.6 L Potassium 3.5 L Chloride 87 L Carbon Dioxide 24 Anion Gap 12 BUN 19 Creatinine 1.59 H Est GFR ( Amer) 41 L Glucose 88 Calcium 8.9 Total Bilirubin 0.6 AST 22 Alkaline Phosphatase 81 Total Protein 6.7 Albumin 4.0 Urine Color YELLOW Urine Appearance CLEAR Urine pH 5.0 Ur Specific [place] 1.011 Urine Protein NEGATIVE Urine Glucose (UA) NEGATIVE Urine Ketones NEGATIVE Urine Blood NEGATIVE Urine Nitrite NEGATIVE Ur Leukocyte Esterase NEGATIVE Urine WBC (Auto) 2 Urine RBC (Auto) 0 11/21/19 11/21/19 22:26 22:26 Creatine Kinase 122 CK-MB (CK-2) 1.40 Troponin I < 0.012 Impressions: Head CT 11/21/19 23:12 IMPRESSION: No acute intracranial abnormality is identified. Assessment and Plan - Diagnosis (1) Near syncope Is this a current diagnosis for this admission?: Yes (2) Lightheadedness Is this a current diagnosis for this admission?: Yes (3) Generalized muscle weakness Is this a current diagnosis for this admission?: Yes (4) Transient hypotension Is this a current diagnosis for this admission?: Yes (5) Hyponatremia Is this a current diagnosis for this admission?: Yes (6) Tobacco use disorder, moderate, dependence Is this a current diagnosis for this admission?: Yes (7) Chronic alcohol dependence, continuous Is this a current diagnosis for this admission?: Yes (8) Ascites Qualifiers: Ascites type: other type Qualified Code(s): R18.8 - Other ascites Is this a current diagnosis for this admission?: Yes - Plan Summary Summary: Patient is admitted to observation status on the medical floor. She will receive IV fluids and be observed carefully for any recurrence of her symptoms. She will receive oral sodium replacement utilizing sodium bicarbonate and will also receive IV sodium replacement and her IV fluids. She will receive Ativan 1 mg IV every 4 hours as needed for anxiety or restlessness. She will receive morphine sulfate 2 to 4 mg IV every 2 hours on as-needed basis for pain control. Serial lactic acids and a repeat CBC and metabolic profile with a magnesium level will be obtained. - Time Time Spent with patient: 15-24 minutes Smoking Cessation Education: 3 to 10 minutes Medications reviewed and adjusted accordingly: Yes Anticipated discharge: Home Within: within 36 hours - Inpatient Certification Based on my medical assessment, after consideration of the patient's comorbidities, presenting symptoms, or acuity I expect that the services needed warrant INPATIENT care.: No I certify that my determination is in accordance with my understanding of Medicare's requirements for reasonable and necessary INPATIENT services [42 CFR 412.3e].: No
[2019-11-22 07:07] LABS: FREE T3 2.75 pg/mL (2.77-5.27); FREE T4 (FREE THYROXINE) 0.87 ng/dL (0.78-2.19)
[2019-11-22] MEDS: POTASSIUM CHLORIDE 10 MEQ TABLET.ER PO SCH ×3 (07:40→16:44)
--- NOTE | 2019-11-22 07:57 | EKG REPORT ---
SEVERITY:- BORDERLINE ECG - SINUS RHYTHM BORDERLINE T ABNORMALITIES, ANT-LAT LEADS : Confirmed by: Jaylan Gómez MD 22-Nov-2019 07:56:50
[2019-11-22] MEDS: HEPARIN SOD (PORCINE) 5,000 UNIT/ML 1 ML VIAL SUBCUT SCH ×3 (08:49→21:51)
[2019-11-22] MEDS: SODIUM BICARBONATE 650 MG TABLET PO SCH ×2 (09:59→12:51)
[2019-11-22] MEDS: FAMOTIDINE 20 MG TABLET PO SCH ×2 (09:59→21:51)
[2019-11-22] MEDS: DOCUSATE SODIUM 100 MG CAPSULE PO SCH ×2 (09:59→18:27)
--- NOTE | 2019-11-22 11:05 | RADIOLOGY REPORT (SQ) ---
EXAM DESCRIPTION: CT ABD/PELVIS NO ORAL OR IV COMPLETED DATE/TIME: 11/22/2019 9:08 am REASON FOR STUDY: Hyponatremia, ascites COMPARISON: 04/16/2019. TECHNIQUE: CT scan of the abdomen and pelvis performed without intravenous or oral contrast. Images reviewed with lung, soft tissue, and bone windows. Reconstructed coronal and sagittal MPR images revi ewed. All images stored on PACS. All CT scanners at this facility use dose modulation, iterative reconstruction, and/or weight based d osing when appropriate to reduce radiation dose to as low as reasonably achievable (ALARA). [facility]: Dose Right [facility]: CareDose [facility]: Dose Right [facility]: Teradose 4D [facility]: Coupmon RADIATION DOSE: CT Rad equipment meets quality standard of care and radiation dose reduction techniq ues were employed. CTDIvol: 7.7 mGy. DLP: 409 mGy-cm.mGy. LIMITATIONS: None. FINDINGS: LOWER CHEST: No significant findings. No nodules or infiltrates. NON-CONTRASTED LIVER, SPLEEN, ADRENALS: Evaluation limited by lack of IV contrast. No identified sign ificant masses. PANCREAS: No masses. No peripancreatic inflammatory changes. GALLBLADDER: No identified stones by CT criteria. No inflammatory changes to suggest cholecystitis. RIGHT KIDNEY AND URETER: No suspicious masses. Assessment limited by lack of IV contrast. No signif icant calcifications. No hydronephrosis or hydroureter. LEFT KIDNEY AND URETER: No suspicious masses. Assessment limited by lack of IV contrast. No signifi cant calcifications. No hydronephrosis or hydroureter. AORTA AND RETROPERITONEUM: No aneurysm. No retroperitoneal masses or adenopathy. BOWEL AND PERITONEAL CAVITY: No obvious masses or inflammatory changes. No free fluid. APPENDIX: Surgically absent. PELVIS, BLADDER, AND ABDOMINAL WALL:No abnormal masses. No free fluid. Bladder normal. BONES: No significant findings. OTHER: No other significant finding. IMPRESSION: NO SIGNIFICANT OR ACUTE PROCESS IN THE ABDOMEN OR PELVIS. COMMENT: Quality ID # [id number]: Final reports with documentation of one or more dose reduction techniques (e.g., Automated exposure control, adjustment of the mA and/or kV according to patient size, use of iterative reconstruction technique) TECHNICAL DOCUMENTATION: JOB ID: [id number] [employer]- All Rights Reserved Reading location - IP/workstation name: [email or web address]
[2019-11-22 11:10] LABS: CREATINE KINASE MB 1.49 ng/mL (<4.55)
[2019-11-22 11:11] LABS: TROPONIN I < 0.012 ng/mL
[2019-11-22] MEDS ORDERED: INFLUENZA QUAD (6MOS+) 2019-20 VAC 0.5 ML SYR IM ONE (11:17)
[2019-11-22] MEDS ORDERED: NITROGLYCERIN 0.4 MG/TAB 25 TAB/BOTTLE SL PRN (15:25)
[2019-11-22] MEDS ORDERED: IBUPROFEN 600 MG TABLET PO PRN (15:25)
[2019-11-22 16:29] LABS: ANION GAP 7 (5-19); BLOOD UREA NITROGEN 11 mg/dL (7-20); CALCIUM 9.2 mg/dL (8.4-10.2); CARBON DIOXIDE 25 mmol/L (22-30); CHLORIDE 100 mmol/L (98-107); GLUCOSE 103 mg/dL (75-110)
[2019-11-22 16:41] LABS: CREATINE KINASE MB 1.15 ng/mL (<4.55)
[2019-11-22 16:48] LABS: POTASSIUM 4.5 mmol/L (3.6-5.0)
[2019-11-22 16:49] LABS: TROPONIN I < 0.012 ng/mL
[2019-11-22] MEDS: PANTOPRAZOLE SODIUM 20 MG TABLET.DR PO SCH (18:26)
[2019-11-22] MEDS: GABAPENTIN 300 MG CAPSULE PO SCH (18:26)
[2019-11-22] MEDS: SODIUM CHLORIDE 1 GM TABLET PO SCH (18:26)
[2019-11-22] MEDS ORDERED: TRAZODONE HCL 50 MG TABLET PO SCH (22:00)
[2019-11-22] MEDS ORDERED: (PENDING PHARMACY ID) (Trazodone Hcl [Desyrel] 100 MG) PO SCH (22:00)
[2019-11-23 05:00] LABS: HEMATOCRIT 34.7 % (36.0-47.0); HEMOGLOBIN 12.2 g/dL (12.0-15.5); MEAN CORPUSCULAR HEMOGLOBIN 34.8 pg (27.0-33.4); MEAN CORPUSCULAR HGB CONC 35.1 g/dL (32.0-36.0); MEAN CORPUSCULAR VOLUME 99 fl (80-97); PLATELET COUNT 291 10^3/uL (150-450); RED BLOOD COUNT 3.51 10^6/uL (3.72-5.28); RED CELL DISTRIBUTION WIDTH 13.3 % (11.5-14.0); WHITE BLOOD COUNT 6.3 10^3/uL (4.0-10.5)
[2019-11-23 05:26] LABS: ANION GAP 5 (5-19); BLOOD UREA NITROGEN 9 mg/dL (7-20); CALCIUM 9.3 mg/dL (8.4-10.2); CARBON DIOXIDE 29 mmol/L (22-30); CHLORIDE 103 mmol/L (98-107); GLUCOSE 97 mg/dL (75-110); POTASSIUM 4.8 mmol/L (3.6-5.0)
[2019-11-23] MEDS: HEPARIN SOD (PORCINE) 5,000 UNIT/ML 1 ML VIAL SUBCUT SCH ×2 (06:58→14:40)
[2019-11-23] MEDS: POTASSIUM CHLORIDE 10 MEQ TABLET.ER PO SCH ×2 (07:47→11:54)
[2019-11-23] MEDS ORDERED: FLUOXETINE HCL 20 MG CAPSULE PO SCH (10:00)
[2019-11-23] MEDS ORDERED: FOLIC ACID 1 MG TABLET PO SCH (10:00)
[2019-11-23] MEDS: FAMOTIDINE 20 MG TABLET PO SCH (10:42)
[2019-11-23] MEDS: GABAPENTIN 300 MG CAPSULE PO SCH (10:43)
[2019-11-23] MEDS: SODIUM CHLORIDE 1 GM TABLET PO SCH ×2 (10:43→14:40)
[2019-11-23] MEDS: DOCUSATE SODIUM 100 MG CAPSULE PO SCH (10:43)
[2019-11-23] MEDS: PANTOPRAZOLE SODIUM 20 MG TABLET.DR PO SCH (10:43)
--- NOTE | 2019-11-23 11:42 | RADIOLOGY REPORT (SQ) ---
EXAM DESCRIPTION: U/S ABDOMEN COMPLETE W/O DOP COMPLETED DATE/TIME: 11/22/2019 11:11 pm REASON FOR STUDY: distention COMPARISON: 04/29/2019 TECHNIQUE: Dynamic and static grayscale images acquired of the abdomen and recorded on PACS. Rejio therese selected color Doppler and spectral images recorded. Note: Study does not meet criteria for complete doppler/duplex scan LIMITATIONS: None. FINDINGS: PANCREAS: Poorly seen. LIVER: Slightly increased echogenicity. No masses. LIVER VASCULATURE: Normal directional flow of the main portal vein and hepatic veins. GALLBLADDER: No stones. Normal wall thickness. No pericholecystic fluid. ULTRASOUND-DETECTED HARRINGTON'S SIGN: Negative. INTRAHEPATIC DUCTS AND COMMON DUCT: CBD and intrahepatic ducts normal caliber. No filling defects. INFERIOR VENA CAVA: Not imaged. AORTA: No aneurysm. RIGHT KIDNEY: Normal size, 9.6 cm. Normal echogenicity. No solid or suspicious masses. No hydr onephrosis. No calcifications. LEFT KIDNEY: Normal size, 9.6 cm. Normal echogenicity. No solid or suspicious masses. No hydro nephrosis. No calcifications. SPLEEN: Normal size, 8.7 cm. PERITONEAL AND PLEURAL SPACES: No ascites or effusions. OTHER: No other significant finding. IMPRESSION: Mild hepatic steatosis. No other significant finding. TECHNICAL DOCUMENTATION: JOB ID: [id number] [employer]- All Rights Reserved Reading location - IP/workstation name: [email or web address]
--- NOTE | 2019-11-23 13:04 | PDOC DISCHARGE SUMMARY ---
Impression - Admit/DC Date/PCP Admission Date/Primary Care Provider: 11/22/19 02:57 ANATOLIY DE LA ROSA MD Discharge Date: 11/23/19 - Assessment Summary: Patient is admitted to observation status on the medical floor. She will r eceive IV fluids and be observed carefully for any recurrence of her symptoms. She will receive oral sodium replacement utilizing sodium bicarbonate and will also receive IV sodium replacement and her IV fluids. She will receive Ativan 1 mg IV every 4 hours as needed for anxiety or restlessness. She will receive morphine sulfate 2 to 4 mg IV every 2 hours on as-needed basis for pain control. Serial lactic acids and a repeat CBC and metabolic profile with a magnesium level will be obtained. - Additional Information Resuscitation Status: Full Code Referrals: [facility] [Provider Group] Home Medications: Fluoxetine HCl [Prozac] 40 mg PO DAILY 11/22/19 Folic Acid [Folvite 1 mg Tablet] 1 mg PO DAILY 11/22/19 Gabapentin [Neurontin 300 mg Capsule] 300 mg PO BID 11/22/19 Ibuprofen [Motrin 600 mg Tablet] 1,200 mg PO Q8HP PRN 11/22/19 Nitroglycerin [Nitrostat 0.4 mg (1/150 Gr) Tabs 25/Bottle] 0.4 mg SL Q5MP PRN 11/22/19 Omeprazole 20 mg PO BID 11/22/19 Sodium Chloride [Sodium Chloride 1 gm Tablet] 1 gm PO TID 11/22/19 Trazodone HCl [Desyrel] 100 mg PO QHS 11/22/19 Nicotine [Nicoderm 21 mg/24 Hr Transderm Patch] 1 each TD DAILYP PRN patch.td24 11/23/19 History of Present Illiness History of Present Illness: ALTAF GRAY is a 54 year old female who presented to the emergency room with acute weakness. She admits that while at home doing dishes she suddenly felt weak and dropped some of the dishes she was holding. She felt dizzy and lightheaded and made her way to the sink where she slumped over and supported herself. Her significant other then came to her side and was trying to help her get to a chair when her knees became weak and she felt as though she was going to pass out before she got to the chair and as such decided to come to the hospital. Patient admits having consumed 2 wine coolers and a Vicodin earlier in the evening prior to her symptoms. She describes her weakness as severe and intermittent worsened by activity and improved somewhat with rest. She denies other associated or accompanying signs and symptoms. She admits numerous prior similar episodes related to low sodium levels. She has not identified any additional aggravating or ameliorating factors for her acute weakness. In the emergency room she was found to be initially mildly hypotensive and tachycardic both of which have improved to baseline levels with IV fluids. She was admitted observation status for further evaluation treatment. Hospital Course Hospital Course: (1) Near syncope (2) Lightheadedness (3) Generalized muscle weakness (4) Transient hypotension (5) Hyponatremia (6) Tobacco use disorder, moderate, dependence (7) Chronic alcohol dependence, continuous (8) Ascites Patient was admitted to observation status on the medical floor. She received IV fluids and was observed carefully for any recurrence of her symptoms. We resumed oral sodium replacement and stop the hydrochlorothiazide. Her sodium improved and almost normalized. He is feeling a lot better today and she is stable to go home. Near syncope most likely due to dehydration. Echocardiogram done but results are pending. She can follow-up results of echocardiogram with PCP outpatient. Physical Exam Vital Signs: Temp Pulse Resp BP Pulse Ox 98.2 F 77 17 144/82 H 97 11/23/19 07:39 11/23/19 11:05 11/23/19 11:05 11/23/19 07:39 11/23/19 11:05 Intake & Output 11/22/19 11/23/19 11/24/19 06:59 06:59 06:59 Intake Total 2610 1960 Output Total 500 Balance 2610 1460 Weight 173 lb 8.061 oz 167 lb 1.766 oz Exam: Patient is no acute distress Alert oriented to time place person No anxiety or depression Head: atraumatic normocephalic Pupils: are equal reactive Heart: Regular rate and rhythm Lungs: clear no distress Abdomen: nontender nondistended Neurological exam: unremarkable Results Laboratory Results: WBC 6.3 10^3/uL (4.0-10.5) 11/23/19 04:13 RBC 3.51 10^6/uL (3.72-5.28) L 11/23/19 04:13 Hgb 12.2 g/dL (12.0-15.5) 11/23/19 04:13 Hct 34.7 % (36.0-47.0) L 11/23/19 04:13 MCV 99 fl (80-97) H 11/23/19 04:13 MCH 34.8 pg (27.0-33.4) H 11/23/19 04:13 MCHC 35.1 g/dL (32.0-36.0) 11/23/19 04:13 RDW 13.3 % (11.5-14.0) 11/23/19 04:13 Plt Count 291 10^3/uL (150-450) 11/23/19 04:13 Lymph % (Auto) 14.5 % (13-45) 11/21/19 22:26 [place] % (Auto) 6.3 % (3-13) 11/21/19 22:26 Eos % (Auto) 0.5 % (0-6) 11/21/19 22:26 Baso % (Auto) 0.3 % (0-2) 11/21/19 22:26 Absolute Neuts (auto) 10.5 10^3/uL (1.7-8.2) H 11/21/19 22:26 Absolute Lymphs (auto) 1.9 10^3/uL (0.5-4.7) 11/21/19 22:26 Absolute Monos (auto) 0.8 10^3/uL (0.1-1.4) 11/21/19 22:26 Absolute Eos (auto) 0.1 10^3/uL (0.0-0.6) 11/21/19 22:26 Absolute Basos (auto) 0.0 10^3/uL (0.0-0.2) 11/21/19 22:26 Seg Neutrophils % 78.4 % (42-78) H 11/21/19 22:26 Sodium 136.9 mmol/L (137-145) L 11/23/19 04:13 Potassium 4.8 mmol/L (3.6-5.0) 11/23/19 04:13 Chloride 103 mmol/L (98-107) 11/23/19 04:13 Carbon Dioxide 29 mmol/L (22-30) 11/23/19 04:13 Anion Gap 5 (5-19) 11/23/19 04:13 BUN 9 mg/dL (7-20) 11/23/19 04:13 Creatinine 0.83 mg/dL (0.52-1.25) 11/23/19 04:13 Est GFR ( Amer) > 60 (>60) 11/23/19 04:13 Est GFR (MDRD) Non-Af > 60 (>60) 11/23/19 04:13 Glucose 97 mg/dL (75-110) 11/23/19 04:13 Serum Osmolality 273 mOsm/kg (275-301) L 11/22/19 15:48 Lactic Acid 1.2 mmol/L (0.7-2.1) 11/22/19 12:25 Calcium 9.3 mg/dL (8.4-10.2) 11/23/19 04:13 Magnesium 2.1 mg/dL (1.6-2.3) 11/23/19 04:13 Total Bilirubin 0.6 mg/dL (0.2-1.3) 11/21/19 22:26 Direct Bilirubin 0.0 mg/dL (0.0-0.4) 11/21/19 22:26 Neonat Total Bilirubin Not Reportable 11/21/19 22:26 Neonat Direct Bilirubin Not Reportable 11/21/19 22:26 Neonat Indirect Bili Not Reportable 11/21/19 22:26 AST 22 U/L (14-36) 11/21/19 22:26 ALT 23 U/L (<35) 11/21/19 22:26 Alkaline Phosphatase 81 U/L (38-126) 11/21/19 22:26 Creatine Kinase 80 U/L (30-135) 11/22/19 15:48 CK-MB (CK-2) 1.15 ng/mL (<4.55) 11/22/19 15:48 Troponin I < 0.012 ng/mL 11/22/19 15:48 Total Protein 6.7 g/dL (6.3-8.2) 11/21/19 22:26 Albumin 4.0 g/dL (3.5-5.0) 11/21/19 22:26 TSH 0.29 uIU/mL (0.47-4.68) L 11/21/19 22:26 Free T4 0.87 ng/dL (0.78-2.19) 11/22/19 03:25 Free T3 pg/mL 2.75 pg/mL (2.77-5.27) L 11/22/19 03:25 Urine Color YELLOW 11/21/19 22:35 Urine Appearance CLEAR 11/21/19 22:35 Urine pH 5.0 (5.0-9.0) 11/21/19 22:35 Ur Specific [place] 1.011 11/21/19 22:35 Urine Protein NEGATIVE mg/dL (NEGATIVE) 11/21/19 22:35 Urine Glucose (UA) NEGATIVE mg/dL (NEGATIVE) 11/21/19 22:35 Urine Ketones NEGATIVE mg/dL (NEGATIVE) 11/21/19 22:35 Urine Blood NEGATIVE (NEGATIVE) 11/21/19 22:35 Urine Nitrite NEGATIVE (NEGATIVE) 11/21/19 22:35 Urine Bilirubin NEGATIVE (NEGATIVE) 11/21/19 22:35 Urine Urobilinogen NEGATIVE mg/dL (<2.0) 11/21/19 22:35 Ur Leukocyte Esterase NEGATIVE (NEGATIVE) 11/21/19 22:35 Urine WBC (Auto) 2 /HPF 11/21/19 22:35 Urine RBC (Auto) 0 /HPF 11/21/19 22:35 U Hyaline Cast (Auto) 18 /LPF 11/21/19 22:35 Urine Bacteria (Auto) TRACE /HPF 11/21/19 22:35 Squamous Epi Cells Auto 2 /HPF 11/21/19 22:35 Urine Mucus (Auto) RARE /LPF 11/21/19 22:35 Urine Osmolality 374 mOsm/kg (300-900) 11/22/19 23:48 Urine Sodium 137 mmol/L (30-90) H 11/22/19 23:48 Urine Ascorbic Acid NEGATIVE (NEGATIVE) 11/21/19 22:35 Urine Opiates Screen UNCONFIRMED POSITIVE 11/21/19 22:35 Urine Methadone Screen NEGATIVE 11/21/19 22:35 Ur Barbiturates Screen NEGATIVE 11/21/19 22:35 Ur Phencyclidine Scrn NEGATIVE 11/21/19 22:35 Ur Amphetamines Screen NEGATIVE 11/21/19 22:35 U Benzodiazepines Scrn NEGATIVE 11/21/19 22:35 Urine Cocaine Screen NEGATIVE 11/21/19 22:35 U Marijuana (THC) Screen NEGATIVE 11/21/19 22:35 Serum Alcohol 20 mg/dL (NONE DETECTED) 11/21/19 22:26 11/21/19 11/22/19 11/22/19 22:26 03:25 09:37 CK-MB (CK-2) 1.40 1.32 1.49 Troponin I < 0.012 < 0.012 < 0.012 11/22/19 15:48 CK-MB (CK-2) 1.15 Troponin I < 0.012 Impressions: Head CT 11/21/19 23:12 IMPRESSION: No acute intracranial abnormality is identified. Abdomen Ultrasound 11/22/19 00:00 IMPRESSION: Mild hepatic steatosis. No other significant finding. Abdomen/Pelvis CT 11/22/19 00:00 IMPRESSION: NO SIGNIFICANT OR ACUTE PROCESS IN THE ABDOMEN OR PELVIS. Plan Time Spent: Less than 30 Minutes Stroke Is this a Stroke Patient?: No Acute Heart Failure - Is this a Heart Failure Patient?: No
[2019-11-23 14:24] VITALS: BP 118/67
--- NOTE | 2019-11-23 19:53 | XCELERA REPORT ---
[address] [address] Transthoracic Echocardiogram Report Name: ALTAF GRAY Age: 54 yrs Gender: Female : 1965 Patient Status: Inpatient Patient Location: [facility]^A Study Date: 11/22/2019 07:02 PM Height: 66 in Weight: 173 lb BSA: 1.9 m2 Reason For Study: syncope Ordering Physician: TIRSO MONTOYA Performed By: Barbara Cline Interpretation Summary ECHO for Syncope. This ECHO study is poor quality with poor Apical views, both apical 4 and apical 2 chambers. There is a small amount of post pericardial effusion only. Mild calcific aortic root not enlarged Mild non-stenotic aortic valvular sclerosis , with no AR. No signif LVOT gradient. No Mitral annular calcification, no MS, no MVP and no LA enlargement and no evidence of LA myxoma. LV shows no hypertrophy although LV is hyperdynamic, and probably without LV segmental disease (poor apical views), no LV dilatation., but TDI at the lateral annulus suggests LVDD. RH is not enlarged and RV function is normal with no suspicion of ARVC. No ASD. TR is trace and no RVSP derived. MMode/2D Measurements & Calculations RVDd: 1.6 cm LVIDd: 4.7 cm FS: 34.8 % Ao root diam: 2.5 cm IVSd: 0.88 cm LVIDs: 3.1 cm EDV(Teich): 102.1 ml LVPWd: 0.88 cm ESV(Teich): 36.8 ml Ao root area: 5.0 cm2 LA dimension: 2.5 cm EF(Teich): 63.9 % Doppler Measurements & Calculations MV E max carlos: MV P1/2t max carlos: Ao V2 max: LV V1 max P.8 cm/sec 106.4 cm/sec 148.8 cm/sec 6.5 mmHg MV A max carlos: MV P1/2t: 55.9 msec Ao max PG: LV V1 max: 79.5 cm/sec MVA(P1/2t): 3.9 cm2 8.9 mmHg 127.3 cm/sec MV E/A: 1.2 MV dec slope: 557.5 cm/sec2 MV dec time: 0.17 sec PA V2 max: MV P1/2t-pr_phl: 74.5 cm/sec 55.9 msec PA max P.2 mmHg I WMSI = 1.00 % Normal = 100 Segments Size X - Cannot 2 - 4 - 1-2 small Interpret 1 - Normal Hypokinetic 3 - AkineticDyskinetic 3-5 moderate 5 - 6-14 large Aneurysmal 15-16 diffuse : TIRSO MONTOYA Andre
== END 2019-11-23 15:00 | disposition home or self-care (01) ==
LOC: ER 21:48 → EH 11-22 02:57 → INTOOBSV 11-22 02:57 → 4N 11-22 05:05
PROVIDERS: ADMIT Emergency Medicine; ATTEND Emergency Medicine
DX: R55 Syncope and collapse (principal); R42 Dizziness and giddiness; I95.89 Other hypotension; I95.9 Hypotension, unspecified; R00.0 Tachycardia, unspecified; M62.81 Muscle weakness (generalized); E87.1 Hypo-osmolality and hyponatremia; F17.200 Nicotine dependence, unspecified, uncomplicated; F10.20 Alcohol dependence, uncomplicated; R18.8 Other ascites; K76.0 Fatty (change of) liver, not elsewhere classified; M19.90 Unspecified osteoarthritis, unspecified site; G89.4 Chronic pain syndrome; F11.11 Opioid abuse, in remission; F19.11 Other psychoactive substance abuse, in remission; F32.9 Major depressive disorder, single episode, unspecified; Z79.899 Other long term (current) drug therapy; Z82.49 Family history of ischemic heart disease and other diseases of the circulatory system; I10 Essential (primary) hypertension; Z23 Encounter for immunization
CPT/HCPCS: 93005; 99285; 96360; 36415 ×3; 84439; 82553 ×2; 80307 ×2; 82550 ×2; 83605; 83735; 83930; 84443; 83935; 84300; 85025; 85027; 80048 ×2; 80053; 81001; 84484 ×2; 84481; 93306; 76700; 70450; 74176; 90686; 93010; G0378 ×3; J1644; J3490 ×4; J7030; J7120

== ENCOUNTER → 2019-11-27 | Outpatient (CLI) | payer OTHER ==
[2019-11-27 15:37] LABS: ANION GAP 13 (5-19); BLOOD UREA NITROGEN 12 mg/dL (7-20); CALCIUM 9.1 mg/dL (8.4-10.2); CARBON DIOXIDE 28 mmol/L (22-30); CHLORIDE 93 mmol/L (98-107); GLUCOSE 79 mg/dL (75-110); POTASSIUM 3.6 mmol/L (3.6-5.0)
== END ==
LOC: CCC 14:00
DX: I10 Essential (primary) hypertension (principal); E87.1 Hypo-osmolality and hyponatremia
CPT/HCPCS: 36415; 80048